=== PATIENT | male | born 1985 | race Caucasian/White ===

== ENCOUNTER 2019-01-12 17:47 | Emergency (ER) | payer SELFPAY ==
[~2019-01-12] VITALS: Ht 177.8 cm; Wt 67.8 kg
[2019-01-12 17:55] VITALS: BP 175/91
[2019-01-12] MEDS ORDERED: buprenorphine/naloxone 8mg/2mg SL tablet SL STA (18:01)
[2019-01-12] MEDS ORDERED: BUPR1FIL3 SL (18:05)
[2019-01-12] MEDS ORDERED: ONDA4TAB6 PO (18:05)
[2019-01-12] MEDS ORDERED: buprenorphine/naloxone 8MG-2MG SUBlingual film SL ONE (18:10)
== END 2019-01-12 18:35 | disposition home or self-care (01) ==
LOC: ER 17:47
DX: F32.9 Major depressive disorder, single episode, unspecified (principal); F11.23 Opioid dependence with withdrawal; Z79.899 Other long term (current) drug therapy
CPT/HCPCS: 99284

== ENCOUNTER 2020-08-11 09:37 | Inpatient (IN) | payer MEDICAID ==
[~2020-08-11] VITALS: Ht 180.3 cm; Wt 59.9 kg
[~2020-08-11 09:37] MED LIST: ONDA4TAB6 PO
[2020-08-11] MEDS ORDERED: buprenorphine/naloxone 8MG-2MG SUBlingual film SL STA (10:39)
[2020-08-11 11:34] LABS: BASOPHILS % (AUTO) 0.2 % (0-1); EOSINOPHILS # (AUTO) 0.2 X10'3 (0-0.9); EOSINOPHILS % (AUTO) 1.1 % (0-6); HEMATOCRIT 26.3 % (42.0-52.0); HEMOGLOBIN 8.6 g/dl (14.0-17.9); LYMPHOCYTES # (AUTO) 0.9 X10'3 (1.1-4.8); MEAN CORPUSCULAR HEMOGLOBIN 27.5 PG (27.0-31.0); MEAN CORPUSCULAR HGB CONC 32.7 g/dL (33.0-36.5); MEAN CORPUSCULAR VOLUME 84.1 FL (78-98); MEAN PLATELET VOLUME 7.4 FL (7.4-10.4); MONOCYTES # (AUTO) 0.5 X10'3 (0-0.9); MONOCYTES % (AUTO) 3.2 % (2-12); NEUTROPHILS # (AUTO) 13.3 X10'3 (1.8-7.7); NEUTROPHILS % (AUTO) 89.5 % (42-75); PLATELET COUNT 253 X10'3 (140-440); RED BLOOD COUNT 3.13 X10'6 (4.70-6.10); RED CELL DISTRIBUTION WIDTH 15.5 % (11.5-14.5); WHITE BLOOD COUNT 14.8 X10'3 (4.5-11.0)
[2020-08-11 11:45] LABS: ALANINE AMINOTRANSFERASE 22 U/L (12-78); ALBUMIN 1.3 G/DL (3.4-5.0); ALBUMIN/GLOBULIN RATIO 0.2 (1.1-1.5); ALKALINE PHOSPHATASE 140 IU/L (46-116); ANION GAP 10 (8-16); ASPARTATE AMINO TRANSFERASE 58 U/L (10-37); BILIRUBIN,TOTAL 0.6 MG/DL (0.1-1.0); BLOOD UREA NITROGEN 43 MG/DL (7-18); BUN/CREATININE RATIO 34.1 (5.4-32.0); CALCIUM 8.6 MG/DL (8.5-10.1); CHLORIDE 102 MMOL/L (99-107); CREATININE 1.26 MG/DL (0.60-1.10); POTASSIUM 4.1 MMOL/L (3.5-5.1); SODIUM 139 MMOL/L (135-145); TOTAL CARBON DIOXIDE 26.7 MMOL/L (24-32); TOTAL PROTEIN 7.5 G/DL (6.4-8.2); eGFR 66 ML/MIN
[2020-08-11 11:54] LABS: D-DIMER > 35.20 MG/L FEU (0-0.50); GLUCOSE 117 MG/DL (70-104)
[2020-08-11 12:04] LABS: C-REACTIVE PROTEIN 35.91 MG/DL (0.0-0.5)
[2020-08-11] MEDS ORDERED: dexamethasone 4mg/ml inj IV STA (12:44)
[2020-08-11] MEDS ORDERED: CefTRIAXone/D5W-Rocephin 1gm 50 ML IV ONE (12:45)
[2020-08-11] MEDS ORDERED: REMDESIVIR (EUA) 100mg inj. 200 MG in normal saline 100ml IV soln 100 ML IV ONE (12:45)
--- NOTE | 2020-08-11 12:52 | NUR ---
PER SAMIR DENNIS, I CALLED CT TO HAVE THEM HOLD OFF ON CT
[2020-08-11] MEDS ORDERED: LIDOcaine 1% W/epiNEPHrine 1:200,000 10ml vial IJ ONE (12:55)
[2020-08-11] MEDS ORDERED: iohexol 350MG/ML 100ml bottle IV ONE (13:43)
[2020-08-11] MEDS ORDERED: heparin 10,000 units/1 ML INJ IV ONE ×2 (16:55→18:45)
[2020-08-11] MEDS ORDERED: vancomycin/NS 1 GM ADD-VANTAGE 250 ML IV ONE (17:15)
[2020-08-11] MEDS ORDERED: piperacillin/tazo 3.375gm/50ml 50 ML IV ONE (17:15)
[2020-08-11] MEDS ORDERED: BUPR1FIL3 PO (17:52)
[2020-08-11] MEDS ORDERED: heparin 25,000 UNIT/250ml bag 250 ML IV SCH (18:45)
[2020-08-11] MEDS ORDERED: magnesium hydroxide 30ml (MOM) UD suspension PO PRN (18:45)
[2020-08-11] MEDS ORDERED: magnesium Cl slow-release 64mg tablet PO PRN (18:45)
[2020-08-11] MEDS ORDERED: potassium Cl 40MEQ/1/2NS 520ml 520 ML IV PRN ×2 (18:45)
[2020-08-11] MEDS ORDERED: acetaminophen 650mg rectal suppository RC PRN (18:45)
[2020-08-11] MEDS ORDERED: LORazepam 1 MG tablet PO PRN (18:45)
[2020-08-11] MEDS ORDERED: ondansetron/PF 4mg/2ml inj IV PRN (18:45)
[2020-08-11] MEDS ORDERED: mag hydrox/Alum hydrox/simeth 30ml oral suspension PO PRN (18:45)
[2020-08-11] MEDS ORDERED: metoclopramide 5 mg/ml inj IV PRN (18:45)
[2020-08-11] MEDS ORDERED: magnesium 2GM in 50ml NS 50 ML IV PRN (18:45)
[2020-08-11] MEDS ORDERED: potassium Cl 20 mEq SR tablet PO PRN ×2 (18:45)
[2020-08-11] MEDS ORDERED: magnesium 4gm in 100ml NS 100 ML IV PRN (18:45)
[2020-08-11] MEDS ORDERED: acetaminophen 325mg tablet PO PRN ×2 (18:45)
[2020-08-11] MEDS ORDERED: bisacodyl 10mg suppository rectal RC PRN (18:45)
[2020-08-11] MEDS ORDERED: heparin 10,000 units/1 ML INJ IV PRN (18:45)
[2020-08-11] MEDS ORDERED: ALBUTEROL INHALER 1 PUFF/90 MCG INHALER IH PRN (18:55)
[2020-08-11 19:48] LABS: BASOPHILS % (AUTO) 0.2 % (0-1); EOSINOPHILS % (AUTO) 0.1 % (0-6); HEMATOCRIT 24.8 % (42.0-52.0); HEMOGLOBIN 8.3 g/dl (14.0-17.9); LYMPHOCYTES % (AUTO) 7.5 % (21-51); MEAN CORPUSCULAR HEMOGLOBIN 27.2 PG (27.0-31.0); MEAN CORPUSCULAR HGB CONC 33.5 g/dL (33.0-36.5); MEAN CORPUSCULAR VOLUME 81.3 FL (78-98); MEAN PLATELET VOLUME 6.9 FL (7.4-10.4); MONOCYTES # (AUTO) 0.6 X10'3 (0-0.9); MONOCYTES % (AUTO) 4.4 % (2-12); NEUTROPHILS # (AUTO) 11.5 X10'3 (1.8-7.7); NEUTROPHILS % (AUTO) 87.8 % (42-75); PLATELET COUNT 211 X10'3 (140-440); RED BLOOD COUNT 3.06 X10'6 (4.70-6.10); RED CELL DISTRIBUTION WIDTH 15.8 % (11.5-14.5); WHITE BLOOD COUNT 13.1 X10'3 (4.5-11.0)
[2020-08-11] MEDS: buprenorphine/naloxone 8MG-2MG SUBlingual film SL SCH (19:49)
[2020-08-11] MEDS: K and/or MAG REPLACEMENT MC SCH (20:00)
[2020-08-11 20:04] LABS: PARTIAL THROMBOPLASTIN TIME 41 SECONDS (22-32)
[2020-08-11] MEDS ORDERED: temazepam 15mg capsule PO PRN (21:00)
[2020-08-11] MEDS ORDERED: normal saline 1000ml 1,000 ML IV ONE (21:55)
--- NOTE | 2020-08-11 22:00 | NUR ---
Received report from NATALIE San, Patient ALOx4, Thora vent in to Left upper chest, 500mmL bols running, heparin drip running at 7units. Patient is on 1L of oxygen, and is sating at 99%, tachypneic. Patient is resting comfortably in bed.
[2020-08-11 22:15] VITALS: BP 118/67
[2020-08-12] MEDS: piperacillin/tazo 3.375gm/50ml 50 ML IV SCH ×4 (00:43→22:17)
[2020-08-12] MEDS: heparin 25,000 UNIT/250ml bag 250 ML IV SCH ×4 (01:10→20:04)
[2020-08-12] MEDS ORDERED: heparin 10,000 units/1 ML INJ IV ONE (01:10)
[2020-08-12 02:48] LABS: BASOPHILS % (AUTO) 0.1 % (0-1); EOSINOPHILS # (AUTO) 0.1 X10'3 (0-0.9); EOSINOPHILS % (AUTO) 0.7 % (0-6); HEMATOCRIT 22.7 % (42.0-52.0); HEMOGLOBIN 7.5 g/dl (14.0-17.9); LYMPHOCYTES # (AUTO) 1.3 X10'3 (1.1-4.8); LYMPHOCYTES % (AUTO) 10.5 % (21-51); MEAN CORPUSCULAR HEMOGLOBIN 27.3 PG (27.0-31.0); MEAN CORPUSCULAR HGB CONC 33.1 g/dL (33.0-36.5); MEAN CORPUSCULAR VOLUME 82.4 FL (78-98); MEAN PLATELET VOLUME 7.1 FL (7.4-10.4); MONOCYTES # (AUTO) 0.8 X10'3 (0-0.9); NEUTROPHILS # (AUTO) 10.6 X10'3 (1.8-7.7); NEUTROPHILS % (AUTO) 82.7 % (42-75); PLATELET COUNT 179 X10'3 (140-440); RED BLOOD COUNT 2.75 X10'6 (4.70-6.10); RED CELL DISTRIBUTION WIDTH 15.6 % (11.5-14.5); WHITE BLOOD COUNT 12.9 X10'3 (4.5-11.0)
[2020-08-12 03:04] LABS: ALANINE AMINOTRANSFERASE 16 U/L (12-78); ALBUMIN 1.1 G/DL (3.4-5.0); ALBUMIN/GLOBULIN RATIO 0.2 (1.1-1.5); ALKALINE PHOSPHATASE 107 IU/L (46-116); ANION GAP 5 (8-16); ASPARTATE AMINO TRANSFERASE 33 U/L (10-37); BILIRUBIN,TOTAL 0.3 MG/DL (0.1-1.0); BLOOD UREA NITROGEN 33 MG/DL (7-18); BUN/CREATININE RATIO 41.8 (5.4-32.0); CALCIUM 8.5 MG/DL (8.5-10.1); CHLORIDE 104 MMOL/L (99-107); CHOL/HDL RATIO 5.4 (0.00-4.99); CHOLESTEROL 54 MG/DL (0-200); CREATININE 0.79 MG/DL (0.60-1.10); HDL CHOLESTEROL 10 MG/DL (35-60); LDL CHOLESTEROL 16 MG/DL (50-100); MAGNESIUM 2.3 MG/DL (1.5-2.4); POTASSIUM 4.4 MMOL/L (3.5-5.1); SODIUM 137 MMOL/L (135-145); TOTAL PROTEIN 6.8 G/DL (6.4-8.2); TRIGLYCERIDES 122 MG/DL (20-135); eGFR > 90 ML/MIN
[2020-08-12 03:08] LABS: D-DIMER 27.08 MG/L FEU (0-0.50); PARTIAL THROMBOPLASTIN TIME 30 SECONDS (22-32)
[2020-08-12 03:22] LABS: GLUCOSE 127 MG/DL (70-104)
[2020-08-12] MEDS: heparin 10,000 units/1 ML INJ IV PRN ×3 (03:50→20:02)
--- NOTE | 2020-08-12 06:20 | NUR ---
Problems reprioritized. Patient report given, questions answered & plan of care reviewed with NATALIE Beckham.
--- NOTE | 2020-08-12 06:49 | NUR ---
Patient in room ORTHO 4006. I have received report from Salvatore and had the opportunity to ask questions and assume patient care.
--- NOTE | 2020-08-12 06:57 | NUR ---
Patient in room ORTHO 4006. I have received report from NATALIE Cahse and had the opportunity to ask questions and assume patient care.
[2020-08-12] MEDS: DEXAMETHASONE 6 MG TABLET PO SCH (07:18)
[2020-08-12] MEDS: buprenorphine/naloxone 8MG-2MG SUBlingual film SL SCH ×2 (07:18→19:00)
[2020-08-12] MEDS: REMDESIVIR (EUA) 100mg inj. 100 MG in normal saline 100ml IV soln 100 ML IV SCH (07:18)
--- NOTE | 2020-08-12 07:30 | NUR ---
Patient is alert and oriented with no complaints at this time. Per report patient was on 2LNC however noticed patient had nasal cannula just hanging off right side of ear with nasal prongs hanging to the side as well. Patient vss and was 96% on RA. Patient reports no SOB and "feeling alot better than I did yesterday." Patient's left anterior chest thoravent dressing CDI with serious sanguinous, fluid chamber filled with serious sanguinous fluid. Spoke to Cyrus from IR who stated Dr. Contreras did not insert thoravent, Dr. Peters from [facility] did, therefore they are not managing it. Cyrus also stated that if hospitalist prefered to have patient have an atrium and connect to suction or airseal then IR would be able to do and follow. Notified this to Dr. Singleton who did want IR to manage. Orders placed. Patient still denies being SOB and is comfortable other than mild pain 3/10 to chest with deep breathing. Encouraged to deep breathe and cough exercises. Will continue to monitor.
[2020-08-12 07:42] VITALS: BP 111/65
[2020-08-12] MEDS ORDERED: buprenorphine/naloxone 8MG-2MG SUBlingual film SL SCH (08:00)
[2020-08-12] MEDS: K and/or MAG REPLACEMENT MC SCH ×2 (08:00→19:00)
[2020-08-12] MEDS ORDERED: vancomycin/NS 1 GM ADD-VANTAGE 250 ML IV SCH (08:00)
--- NOTE | 2020-08-12 08:25 | NUR ---
Dr Rhodes PAGER ID: [phone] MESSAGE: [phone]- Scotty Maldonado- yanira peterson full. IR did not insert so are not managing. Cyrus from IR called asked if you would like to connect to an atrium and place on suction or airseal or would you like it to just be aspirated? - Bhavani [phone]
--- NOTE | 2020-08-12 08:29 | NUR ---
PAGER ID: [phone] MESSAGE: [phone]- Scotty Maldonado- Positive Blood Cultures. Gram positive cocci in chains in anaebroic tueb drawn on 08/11 @ 1111 in extended IV. Gram positive cocci in chains in anaerobic and aerobic tube drawn on 08/11 at 1216 in extended IV- [place] [id number]
[2020-08-12] MEDS: VANCOmycin 1250MG/NS 250ml Bag 250 ML IV SCH ×2 (08:44→18:58)
[2020-08-12 10:00] VITALS: BP 117/71
--- NOTE | 2020-08-12 10:08 | NUR ---
Dr. Banegas to see patient. Patient having Echo done at bedside. Per Dr. Banegas cap off thoravent with redcap and will recheck chest xray at 1230.
--- NOTE | 2020-08-12 11:17 | NUR ---
Dr. Banegas in to see patient.
--- NOTE | 2020-08-12 11:21 | NUR ---
PAGER ID: [phone] MESSAGE: [phone]-White, Z- per US tech does have DVT. Already on heparin carlo- Bhavani [phone]
--- NOTE | 2020-08-12 12:38 | NUR ---
Dr. Rhodes aware of patient's current Lactic Acid of 3.3. No need to redraw Lactic Acid per Dr. Rhodes but received orders for a set of blood cultures.
--- NOTE | 2020-08-12 12:51 | NUR ---
Dr. Banegas in to see patient and dc'pema dugannt. Dressing CDI. Patient denies any complaints.
[2020-08-12 18:00] VITALS: BP 116/70
--- NOTE | 2020-08-12 18:05 | NUR ---
Problems reprioritized. Patient report given, questions answered & plan of care reviewed with NATALIE Singleton.
[2020-08-12] MEDS: lactobacillus rhamnosus 10,000 MMU CELLS/CAPSULE PO SCH (19:01)
[2020-08-12 22:00] VITALS: BP 117/70
[2020-08-13 02:52] LABS: D-DIMER 9.77 MG/L FEU (0-0.50); PARTIAL THROMBOPLASTIN TIME 59 SECONDS (22-32)
--- NOTE | 2020-08-13 06:45 | NUR ---
Patient in room ORTHO 4006. I have received report from NATALIE BUSTAMANTE and had the opportunity to ask questions and assume patient care.
[2020-08-13] MEDS: K and/or MAG REPLACEMENT MC SCH ×2 (08:00→20:00)
[2020-08-13] MEDS: piperacillin/tazo 3.375gm/50ml 50 ML IV SCH ×3 (08:00→23:53)
[2020-08-13 10:00] VITALS: BP 122/68
[2020-08-13] MEDS: REMDESIVIR (EUA) 100mg inj. 100 MG in normal saline 100ml IV soln 100 ML IV SCH (10:29)
[2020-08-13] MEDS: DEXAMETHASONE 6 MG TABLET PO SCH (10:35)
[2020-08-13] MEDS: lactobacillus rhamnosus 10,000 MMU CELLS/CAPSULE PO SCH ×2 (10:35→21:15)
[2020-08-13] MEDS: heparin 25,000 UNIT/250ml bag 250 ML IV SCH (10:37)
[2020-08-13] MEDS: buprenorphine/naloxone 8MG-2MG SUBlingual film SL SCH ×2 (11:29→21:15)
[2020-08-13] MEDS: enoxaparin 60mg/0.6ml syringe SUBCUT SCH ×2 (17:48→21:03)
[2020-08-13 18:00] VITALS: BP 116/73
--- NOTE | 2020-08-13 18:17 | NUR ---
Patient in room ORTHO 4006. I have received report from Fannie ESTRADA and had the opportunity to ask questions and assume patient care.
--- NOTE | 2020-08-13 18:45 | NUR ---
Problems reprioritized. Patient report given, questions answered & plan of care reviewed with NATALIE EISENBERG.
[2020-08-13] MEDS ORDERED: VANCOMYCIN LEVEL IV ONE (19:30)
[2020-08-13] MEDS: Melatonin 3mg tablet PO SCH (21:15)
[2020-08-13 22:00] VITALS: BP 120/70
[2020-08-14 02:00] VITALS: BP 136/69
[2020-08-14 06:00] VITALS: BP 117/63
--- NOTE | 2020-08-14 06:18 | NUR ---
Problems reprioritized. Patient report given, questions answered & plan of care reviewed with STEVE ESTRADA.
[2020-08-14 06:49] LABS: BASOPHILS % (AUTO) 0 % (0-1); EOSINOPHILS % (AUTO) 0 % (0-6); LYMPHOCYTES # (AUTO) 1.9 X10'3 (1.1-4.8); MEAN CORPUSCULAR HEMOGLOBIN 27.4 PG (27.0-31.0); MEAN CORPUSCULAR HGB CONC 33.2 g/dL (33.0-36.5); MEAN CORPUSCULAR VOLUME 82.5 FL (78-98); MEAN PLATELET VOLUME 7.3 FL (7.4-10.4); PLATELET COUNT 172 X10'3 (140-440); RED BLOOD COUNT 2.51 X10'6 (4.70-6.10); RED CELL DISTRIBUTION WIDTH 15.4 % (11.5-14.5); WHITE BLOOD COUNT 13.9 X10'3 (4.5-11.0)
[2020-08-14 06:59] LABS: HEMATOCRIT 20.7 % (42.0-52.0); HEMOGLOBIN 6.9 g/dl (14.0-17.9)
[2020-08-14 07:00] LABS: ALANINE AMINOTRANSFERASE 18 U/L (12-78); ALBUMIN 1.1 G/DL (3.4-5.0); ALBUMIN/GLOBULIN RATIO 0.2 (1.1-1.5); ALKALINE PHOSPHATASE 107 IU/L (46-116); ANION GAP 5 (8-16); ASPARTATE AMINO TRANSFERASE 26 U/L (10-37); BILIRUBIN,TOTAL 0.3 MG/DL (0.1-1.0); BLOOD UREA NITROGEN 23 MG/DL (7-18); BUN/CREATININE RATIO 31.9 (5.4-32.0); C-REACTIVE PROTEIN 11.95 MG/DL (0.0-0.5); CALCIUM 8.7 MG/DL (8.5-10.1); CHLORIDE 101 MMOL/L (99-107); CREATININE 0.72 MG/DL (0.60-1.10); POTASSIUM 4.6 MMOL/L (3.5-5.1); SODIUM 138 MMOL/L (135-145); TOTAL CARBON DIOXIDE 32.2 MMOL/L (24-32); TOTAL PROTEIN 7.2 G/DL (6.4-8.2); eGFR > 90 ML/MIN
[2020-08-14 07:01] LABS: GLUCOSE 118 MG/DL (70-104)
[2020-08-14 07:03] LABS: D-DIMER 11.12 MG/L FEU (0-0.50)
--- NOTE | 2020-08-14 07:10 | NUR ---
CRITICAL HGB 6.9 HCT 20.7, DR MACEDO AWAITING CALL BACK
[2020-08-14] MEDS: K and/or MAG REPLACEMENT MC SCH ×2 (08:00→20:00)
[2020-08-14] MEDS: lactobacillus rhamnosus 10,000 MMU CELLS/CAPSULE PO SCH ×2 (08:07→20:39)
[2020-08-14] MEDS: REMDESIVIR (EUA) 100mg inj. 100 MG in normal saline 100ml IV soln 100 ML IV SCH (08:07)
[2020-08-14] MEDS: enoxaparin 60mg/0.6ml syringe SUBCUT SCH ×2 (08:07→20:40)
[2020-08-14] MEDS: citalopram 20mg tablet PO SCH (08:07)
[2020-08-14] MEDS: buprenorphine/naloxone 8MG-2MG SUBlingual film SL SCH ×2 (08:08→20:39)
[2020-08-14] MEDS: DEXAMETHASONE 6 MG TABLET PO SCH (08:08)
[2020-08-14 08:11] LABS: HIV ANTIBODY 1&2 RAPID NON-REACTIVE (Neg)
[2020-08-14 08:38] VITALS: BP 123/68
[2020-08-14 10:00] VITALS: BP 119/70
[2020-08-14] MEDS: piperacillin/tazo 3.375gm/50ml 50 ML IV SCH ×3 (11:30→23:55)
[2020-08-14 16:00] VITALS: BP 132/70
--- NOTE | 2020-08-14 18:40 | NUR ---
Problems reprioritized. Patient report given, questions answered & plan of care reviewed with NATALIE WRIGHT.
[2020-08-14] MEDS: Melatonin 3mg tablet PO SCH (20:40)
[2020-08-14 22:00] VITALS: BP 119/73
[2020-08-15 02:00] VITALS: BP 117/73
[2020-08-15 05:23] VITALS: BP 123/73
[2020-08-15 06:15] LABS: D-DIMER 8.87 MG/L FEU (0-0.50)
[2020-08-15 06:19] LABS: BASOPHILS % (AUTO) 0.1 % (0-1); EOSINOPHILS # (AUTO) 0.1 X10'3 (0-0.9); EOSINOPHILS % (AUTO) 0.5 % (0-6); LYMPHOCYTES % (AUTO) 24.7 % (21-51); MEAN CORPUSCULAR HEMOGLOBIN 27.5 PG (27.0-31.0); MEAN CORPUSCULAR HGB CONC 33.4 g/dL (33.0-36.5); MEAN CORPUSCULAR VOLUME 82.4 FL (78-98); MEAN PLATELET VOLUME 7.1 FL (7.4-10.4); MONOCYTES # (AUTO) 1.1 X10'3 (0-0.9); MONOCYTES % (AUTO) 9.4 % (2-12); NEUTROPHILS # (AUTO) 7.9 X10'3 (1.8-7.7); NEUTROPHILS % (AUTO) 65.3 % (42-75); PLATELET COUNT 222 X10'3 (140-440); RED BLOOD COUNT 2.54 X10'6 (4.70-6.10); RED CELL DISTRIBUTION WIDTH 15.7 % (11.5-14.5); WHITE BLOOD COUNT 12.1 X10'3 (4.5-11.0)
[2020-08-15 06:26] LABS: ALANINE AMINOTRANSFERASE 20 U/L (12-78); ALBUMIN 1.1 G/DL (3.4-5.0); ALBUMIN/GLOBULIN RATIO 0.2 (1.1-1.5); ALKALINE PHOSPHATASE 86 IU/L (46-116); ANION GAP 2 (8-16); ASPARTATE AMINO TRANSFERASE 22 U/L (10-37); BILIRUBIN,TOTAL 0.2 MG/DL (0.1-1.0); BLOOD UREA NITROGEN 22 MG/DL (7-18); BUN/CREATININE RATIO 27.8 (5.4-32.0); C-REACTIVE PROTEIN 6.77 MG/DL (0.0-0.5); CALCIUM 8.4 MG/DL (8.5-10.1); CHLORIDE 101 MMOL/L (99-107); CREATININE 0.79 MG/DL (0.60-1.10); FERRITIN 443 NG/ML (26-388); MAGNESIUM 1.9 MG/DL (1.5-2.4); POTASSIUM 4.5 MMOL/L (3.5-5.1); SODIUM 136 MMOL/L (135-145); TOTAL CARBON DIOXIDE 32.7 MMOL/L (24-32); TOTAL PROTEIN 7.1 G/DL (6.4-8.2); eGFR > 90 ML/MIN
[2020-08-15 06:27] LABS: GLUCOSE 91 MG/DL (70-104)
--- NOTE | 2020-08-15 06:30 | NUR ---
Patient in room ORTHO 4006. I have received report from NATALIE WRIGHT and had the opportunity to ask questions and assume patient care.
[2020-08-15 06:33] LABS: HEMATOCRIT 20.9 % (42.0-52.0)
--- NOTE | 2020-08-15 06:52 | NUR ---
CALLED DR COOK RE: CRITICAL HGB 7.01 HCT 20.9... ADVISED TO MEGHA CODY MD AFTER 0700.
[2020-08-15] MEDS: K and/or MAG REPLACEMENT MC SCH ×2 (07:28→20:00)
--- NOTE | 2020-08-15 07:32 | NUR ---
Page Sent PAGER ID: [phone] MESSAGE: TRISTON 5199-RE: ALBER CHEATHAM [phone]...CRITICAL LAB...HGB 7.0 HCT 20.9
[2020-08-15] MEDS: buprenorphine/naloxone 8MG-2MG SUBlingual film SL SCH ×2 (07:52→20:12)
[2020-08-15] MEDS: citalopram 20mg tablet PO SCH (07:52)
[2020-08-15] MEDS: DEXAMETHASONE 6 MG TABLET PO SCH (07:52)
[2020-08-15] MEDS: REMDESIVIR (EUA) 100mg inj. 100 MG in normal saline 100ml IV soln 100 ML IV SCH (07:52)
[2020-08-15] MEDS: piperacillin/tazo 3.375gm/50ml 50 ML IV SCH ×2 (07:52→17:20)
[2020-08-15] MEDS: lactobacillus rhamnosus 10,000 MMU CELLS/CAPSULE PO SCH ×2 (07:52→20:12)
[2020-08-15] MEDS: enoxaparin 60mg/0.6ml syringe SUBCUT SCH ×2 (07:52→20:12)
[2020-08-15 09:19] LABS: PLATELET ESTIMATE NORMAL
[2020-08-15 09:20] LABS: ANISOCYTOSIS 1+; POLYCHROMASIA 2+
[2020-08-15 11:00] VITALS: BP 129/70
[2020-08-15 11:33] LABS: % IRON SATURATION 18 % (11-46); IRON 37 UG/DL (53-167); TOTAL IRON BINDING CAPACITY 208 UG/DL (259-388)
--- NOTE | 2020-08-15 12:29 | NUR ---
Initial: Pt admit DX pulmonary emboli, sepsis, COVID-19, L lung abscess, and L pneumothorax s/p CT placement per MD note. Noted BMI 18.4 though no significant edema/wounds or weakness and PO 75-100% avg regular diet meeting kcal needs for IBW. Double proteins BIDLD added for satiety and needs given DX. Does not meet malnutrition criteria at this time. LBM 08/13. CRP down to 6.77 from 36.4 prior per EMR. No nutrition concerns at this time. Will continue to monitor. Rec: 1. continue regular diet; double proteins BIDLD for satiety 2. routine bowel care 3. weekly wts Addendum: 08/15/20 at [address] Amended: Links added.
[2020-08-15 15:00] VITALS: BP 116/69
[2020-08-15 15:56] LABS: OCCULT BLOOD STOOL NEGATIVE (Neg)
[2020-08-15 17:34] VITALS: BP 111/75
--- NOTE | 2020-08-15 18:25 | NUR ---
Problems reprioritized. Patient report given, questions answered & plan of care reviewed with NATALIE WRIGHT.
[2020-08-15] MEDS: Melatonin 3mg tablet PO SCH (20:12)
[2020-08-15 22:00] VITALS: BP 122/67
[2020-08-15] MEDS: sodium ferric gluc complex inj 125 MG in normal saline 100ml IV soln 90 ML IV SCH (22:02)
[2020-08-16] MEDS: piperacillin/tazo 3.375gm/50ml 50 ML IV SCH ×4 (00:34→23:46)
[2020-08-16 02:00] VITALS: BP 124/65
[2020-08-16 05:51] VITALS: BP 130/63
[2020-08-16 06:13] LABS: BASOPHILS % (AUTO) 0 % (0-1); EOSINOPHILS # (AUTO) 0.1 X10'3 (0-0.9); EOSINOPHILS % (AUTO) 1.2 % (0-6); HEMATOCRIT 23.1 % (42.0-52.0); HEMOGLOBIN 7.5 g/dl (14.0-17.9); LYMPHOCYTES # (AUTO) 2.9 X10'3 (1.1-4.8); LYMPHOCYTES % (AUTO) 24.2 % (21-51); MEAN CORPUSCULAR HEMOGLOBIN 27.3 PG (27.0-31.0); MEAN CORPUSCULAR HGB CONC 32.6 g/dL (33.0-36.5); MEAN CORPUSCULAR VOLUME 83.7 FL (78-98); MONOCYTES # (AUTO) 1.2 X10'3 (0-0.9); NEUTROPHILS # (AUTO) 7.8 X10'3 (1.8-7.7); NEUTROPHILS % (AUTO) 64.6 % (42-75); PLATELET COUNT 285 X10'3 (140-440); RED BLOOD COUNT 2.76 X10'6 (4.70-6.10); RED CELL DISTRIBUTION WIDTH 15.9 % (11.5-14.5); WHITE BLOOD COUNT 12.1 X10'3 (4.5-11.0)
--- NOTE | 2020-08-16 06:26 | NUR ---
Patient in room ORTHO 4006. I have received report from NATALIE Dumont and had the opportunity to ask questions and assume patient care.
[2020-08-16 06:32] LABS: ALANINE AMINOTRANSFERASE 25 U/L (12-78); ALBUMIN 1.2 G/DL (3.4-5.0); ALBUMIN/GLOBULIN RATIO 0.2 (1.1-1.5); ALKALINE PHOSPHATASE 87 IU/L (46-116); ANION GAP 3 (8-16); ASPARTATE AMINO TRANSFERASE 22 U/L (10-37); BILIRUBIN,TOTAL 0.2 MG/DL (0.1-1.0); BLOOD UREA NITROGEN 22 MG/DL (7-18); BUN/CREATININE RATIO 25.3 (5.4-32.0); C-REACTIVE PROTEIN 4.64 MG/DL (0.0-0.5); CALCIUM 8.6 MG/DL (8.5-10.1); CHLORIDE 102 MMOL/L (99-107); CREATININE 0.87 MG/DL (0.60-1.10); POTASSIUM 4.5 MMOL/L (3.5-5.1); SODIUM 138 MMOL/L (135-145); TOTAL PROTEIN 7.7 G/DL (6.4-8.2); eGFR > 90 ML/MIN
[2020-08-16 06:33] LABS: D-DIMER 10.05 MG/L FEU (0-0.50); GLUCOSE 85 MG/DL (70-104)
[2020-08-16] MEDS: K and/or MAG REPLACEMENT MC SCH ×2 (07:01→20:00)
[2020-08-16] MEDS: citalopram 20mg tablet PO SCH (07:49)
[2020-08-16] MEDS: lactobacillus rhamnosus 10,000 MMU CELLS/CAPSULE PO SCH ×2 (07:50→20:15)
[2020-08-16] MEDS: buprenorphine/naloxone 8MG-2MG SUBlingual film SL SCH ×2 (07:50→20:16)
[2020-08-16] MEDS: DEXAMETHASONE 6 MG TABLET PO SCH (07:50)
[2020-08-16] MEDS: enoxaparin 60mg/0.6ml syringe SUBCUT SCH ×2 (07:50→20:20)
[2020-08-16 08:15] VITALS: BP 121/65
[2020-08-16 18:01] VITALS: BP 120/56
--- NOTE | 2020-08-16 18:15 | NUR ---
Problems reprioritized. Patient report given, questions answered & plan of care reviewed with NATALIE MOREIRA.
--- NOTE | 2020-08-16 18:40 | NUR ---
RECEIVED REPORT FROM TRISTON ESTRADA AND ASSUMED PATIENT CARE
[2020-08-16] MEDS: Melatonin 3mg tablet PO SCH (20:16)
[2020-08-16] MEDS: sodium ferric gluc complex inj 125 MG in normal saline 100ml IV soln 90 ML IV SCH (20:21)
[2020-08-16 22:00] VITALS: BP 113/59
[2020-08-17] VITALS (7 sets, daily range): BP systolic 110–129; BP diastolic 58–80
[2020-08-17 04:44] LABS: BASOPHILS # (AUTO) 0.1 X10'3 (0-0.2); BASOPHILS % (AUTO) 0.9 % (0-1); EOSINOPHILS # (AUTO) 0.2 X10'3 (0-0.9); EOSINOPHILS % (AUTO) 1.4 % (0-6); HEMATOCRIT 24.5 % (42.0-52.0); LYMPHOCYTES # (AUTO) 3.4 X10'3 (1.1-4.8); LYMPHOCYTES % (AUTO) 24.7 % (21-51); MEAN CORPUSCULAR HEMOGLOBIN 27.5 PG (27.0-31.0); MEAN CORPUSCULAR HGB CONC 32.5 g/dL (33.0-36.5); MEAN CORPUSCULAR VOLUME 84.4 FL (78-98); MEAN PLATELET VOLUME 6.7 FL (7.4-10.4); MONOCYTES # (AUTO) 1.1 X10'3 (0-0.9); MONOCYTES % (AUTO) 7.9 % (2-12); NEUTROPHILS # (AUTO) 8.8 X10'3 (1.8-7.7); NEUTROPHILS % (AUTO) 65.1 % (42-75); PLATELET COUNT 353 X10'3 (140-440); RED CELL DISTRIBUTION WIDTH 16.2 % (11.5-14.5); WHITE BLOOD COUNT 13.6 X10'3 (4.5-11.0)
[2020-08-17 04:59] LABS: ALANINE AMINOTRANSFERASE 26 U/L (12-78); ALBUMIN 1.3 G/DL (3.4-5.0); ALBUMIN/GLOBULIN RATIO 0.2 (1.1-1.5); ALKALINE PHOSPHATASE 91 IU/L (46-116); ANION GAP 2 (8-16); ASPARTATE AMINO TRANSFERASE 18 U/L (10-37); BILIRUBIN,TOTAL 0.3 MG/DL (0.1-1.0); BLOOD UREA NITROGEN 21 MG/DL (7-18); BUN/CREATININE RATIO 25.9 (5.4-32.0); CALCIUM 8.6 MG/DL (8.5-10.1); CHLORIDE 101 MMOL/L (99-107); CREATININE 0.81 MG/DL (0.60-1.10); MAGNESIUM 2.2 MG/DL (1.5-2.4); PHOSPHORUS 3.5 MG/DL (2.3-4.5); POTASSIUM 4.8 MMOL/L (3.5-5.1); SODIUM 136 MMOL/L (135-145); TOTAL CARBON DIOXIDE 33.1 MMOL/L (24-32); TOTAL PROTEIN 7.9 G/DL (6.4-8.2); eGFR > 90 ML/MIN
[2020-08-17 05:17] LABS: GLUCOSE 89 MG/DL (70-104)
--- NOTE | 2020-08-17 06:57 | NUR ---
Patient in room ORTHO 4008. I have received report from NATALIE Gleason and had the opportunity to ask questions and assume patient care.
[2020-08-17 07:12] LABS: TOTAL CELLS COUNTED 100
[2020-08-17 07:13] LABS: PLATELET ESTIMATE NORMAL
[2020-08-17] MEDS: lactobacillus rhamnosus 10,000 MMU CELLS/CAPSULE PO SCH ×2 (07:38→20:31)
[2020-08-17] MEDS: citalopram 20mg tablet PO SCH (07:38)
[2020-08-17] MEDS: buprenorphine/naloxone 8MG-2MG SUBlingual film SL SCH ×2 (07:39→20:31)
[2020-08-17] MEDS: DEXAMETHASONE 6 MG TABLET PO SCH (07:39)
--- NOTE | 2020-08-17 07:49 | NUR ---
pt out to IR for chest tube placement.
[2020-08-17] MEDS: K and/or MAG REPLACEMENT MC SCH ×2 (08:00→20:00)
[2020-08-17] MEDS: piperacillin/tazo 3.375gm/50ml 50 ML IV SCH ×2 (08:50→16:50)
--- NOTE | 2020-08-17 08:58 | NUR ---
pt back to room. chest tube placed to left upper chest. Pt has no c/o pain or discomfort. O2sat 95% on R/A. fine expiratory wheezes and crepitus to left lung.
[2020-08-17] MEDS ORDERED: iohexol 350MG/ML 100ml bottle IV ONE (09:19)
[2020-08-17] MEDS: enoxaparin 60mg/0.6ml syringe SUBCUT SCH ×2 (11:43→20:31)
--- NOTE | 2020-08-17 18:38 | NUR ---
Problems reprioritized. Patient report given, questions answered & plan of care reviewed with NATALIE Soliman.
[2020-08-17] MEDS: sodium ferric gluc complex inj 125 MG in normal saline 100ml IV soln 90 ML IV SCH (20:18)
[2020-08-17] MEDS: Melatonin 3mg tablet PO SCH (20:31)
[2020-08-18] MEDS: piperacillin/tazo 3.375gm/50ml 50 ML IV SCH ×3 (00:31→15:18)
--- NOTE | 2020-08-18 06:00 | NUR ---
Patient in room ORTHO 4008. I have received report from Janny ESTRADA and had the opportunity to ask questions and assume patient care.
[2020-08-18] MEDS: DEXAMETHASONE 6 MG TABLET PO SCH (07:28)
[2020-08-18] MEDS: lactobacillus rhamnosus 10,000 MMU CELLS/CAPSULE PO SCH ×2 (07:29→20:21)
[2020-08-18] MEDS: citalopram 20mg tablet PO SCH (07:29)
[2020-08-18] MEDS: buprenorphine/naloxone 8MG-2MG SUBlingual film SL SCH ×2 (07:30→20:23)
[2020-08-18] MEDS: enoxaparin 60mg/0.6ml syringe SUBCUT SCH ×2 (07:31→20:23)
[2020-08-18 07:35] VITALS: BP 116/56
[2020-08-18] MEDS: K and/or MAG REPLACEMENT MC SCH ×2 (07:43→20:00)
[2020-08-18 09:30] LABS: BASOPHILS % (AUTO) 0.1 % (0-1); EOSINOPHILS # (AUTO) 0.2 X10'3 (0-0.9); EOSINOPHILS % (AUTO) 1.5 % (0-6); HEMATOCRIT 24.7 % (42.0-52.0); HEMOGLOBIN 7.9 g/dl (14.0-17.9); LYMPHOCYTES # (AUTO) 2.1 X10'3 (1.1-4.8); LYMPHOCYTES % (AUTO) 14.2 % (21-51); MEAN CORPUSCULAR HEMOGLOBIN 27.5 PG (27.0-31.0); MEAN CORPUSCULAR HGB CONC 32.1 g/dL (33.0-36.5); MEAN CORPUSCULAR VOLUME 85.4 FL (78-98); MEAN PLATELET VOLUME 6.4 FL (7.4-10.4); MONOCYTES # (AUTO) 0.8 X10'3 (0-0.9); MONOCYTES % (AUTO) 5.5 % (2-12); NEUTROPHILS # (AUTO) 11.4 X10'3 (1.8-7.7); NEUTROPHILS % (AUTO) 78.7 % (42-75); PLATELET COUNT 416 X10'3 (140-440); RED BLOOD COUNT 2.89 X10'6 (4.70-6.10); RED CELL DISTRIBUTION WIDTH 16.9 % (11.5-14.5); WHITE BLOOD COUNT 14.5 X10'3 (4.5-11.0)
[2020-08-18 09:35] LABS: ALANINE AMINOTRANSFERASE 22 U/L (12-78); ALBUMIN 1.3 G/DL (3.4-5.0); ALBUMIN/GLOBULIN RATIO 0.2 (1.1-1.5); ALKALINE PHOSPHATASE 87 IU/L (46-116); ANION GAP 4 (8-16); ASPARTATE AMINO TRANSFERASE 17 U/L (10-37); BILIRUBIN,TOTAL 0.3 MG/DL (0.1-1.0); BLOOD UREA NITROGEN 22 MG/DL (7-18); BUN/CREATININE RATIO 23.4 (5.4-32.0); C-REACTIVE PROTEIN 5.59 MG/DL (0.0-0.5); CALCIUM 8.5 MG/DL (8.5-10.1); CHLORIDE 97 MMOL/L (99-107); CREATININE 0.94 MG/DL (0.60-1.10); PHOSPHORUS 3.4 MG/DL (2.3-4.5); POTASSIUM 4.5 MMOL/L (3.5-5.1); SODIUM 132 MMOL/L (135-145); TOTAL CARBON DIOXIDE 31.2 MMOL/L (24-32); TOTAL PROTEIN 7.7 G/DL (6.4-8.2); eGFR > 90 ML/MIN
[2020-08-18 09:46] LABS: GLUCOSE 180 MG/DL (70-104)
[2020-08-18 10:08] VITALS: BP 118/57
--- NOTE | 2020-08-18 12:10 | NUR ---
Problems reprioritized. Patient report given, questions answered & plan of care reviewed with Myrna ESTRADA.
--- NOTE | 2020-08-18 18:16 | NUR ---
Problems reprioritized. Patient report given, questions answered & plan of care reviewed with NATALIE Luu.
--- NOTE | 2020-08-18 18:30 | NUR ---
Patient in room ORTHO 4008. I have received report from TRISTIN ESTRADA and had the opportunity to ask questions and assume patient care.
[2020-08-18 19:00] VITALS: BP 140/58
[2020-08-18] MEDS: sodium ferric gluc complex inj 125 MG in normal saline 100ml IV soln 90 ML IV SCH (20:13)
[2020-08-18] MEDS: Melatonin 3mg tablet PO SCH (20:22)
[2020-08-18 23:00] VITALS: BP 112/56
[2020-08-19] MEDS: piperacillin/tazo 3.375gm/50ml 50 ML IV SCH ×3 (00:08→16:47)
[2020-08-19 06:00] VITALS: BP 111/64
[2020-08-19 06:20] LABS: BASOPHILS % (AUTO) 0.2 % (0-1); EOSINOPHILS # (AUTO) 0.2 X10'3 (0-0.9); EOSINOPHILS % (AUTO) 1.5 % (0-6); HEMOGLOBIN 7.7 g/dl (14.0-17.9); LYMPHOCYTES # (AUTO) 3.1 X10'3 (1.1-4.8); LYMPHOCYTES % (AUTO) 27.3 % (21-51); MEAN CORPUSCULAR HEMOGLOBIN 28.3 PG (27.0-31.0); MEAN CORPUSCULAR HGB CONC 33.5 g/dL (33.0-36.5); MEAN CORPUSCULAR VOLUME 84.5 FL (78-98); MEAN PLATELET VOLUME 6.3 FL (7.4-10.4); MONOCYTES % (AUTO) 9.1 % (2-12); NEUTROPHILS # (AUTO) 7.1 X10'3 (1.8-7.7); NEUTROPHILS % (AUTO) 61.9 % (42-75); PLATELET COUNT 454 X10'3 (140-440); RED BLOOD COUNT 2.72 X10'6 (4.70-6.10); RED CELL DISTRIBUTION WIDTH 17.6 % (11.5-14.5); WHITE BLOOD COUNT 11.4 X10'3 (4.5-11.0)
--- NOTE | 2020-08-19 06:26 | NUR ---
Patient in room ORTHO 4008. I have received report from NATALIE Luu and had the opportunity to ask questions and assume patient care.
--- NOTE | 2020-08-19 06:27 | NUR ---
Problems reprioritized. Patient report given, questions answered & plan of care reviewed with DESTINY ESTRADA.
[2020-08-19 06:37] LABS: ALANINE AMINOTRANSFERASE 29 U/L (12-78); ALBUMIN 1.3 G/DL (3.4-5.0); ALBUMIN/GLOBULIN RATIO 0.2 (1.1-1.5); ALKALINE PHOSPHATASE 82 IU/L (46-116); ANION GAP 0 (8-16); ASPARTATE AMINO TRANSFERASE 20 U/L (10-37); BILIRUBIN,TOTAL 0.2 MG/DL (0.1-1.0); BLOOD UREA NITROGEN 19 MG/DL (7-18); BUN/CREATININE RATIO 22.9 (5.4-32.0); C-REACTIVE PROTEIN 4.49 MG/DL (0.0-0.5); CALCIUM 8.9 MG/DL (8.5-10.1); CHLORIDE 101 MMOL/L (99-107); CREATININE 0.83 MG/DL (0.60-1.10); PHOSPHORUS 3.4 MG/DL (2.3-4.5); POTASSIUM 4.4 MMOL/L (3.5-5.1); SODIUM 136 MMOL/L (135-145); TOTAL CARBON DIOXIDE 34.9 MMOL/L (24-32); TOTAL PROTEIN 7.7 G/DL (6.4-8.2); eGFR > 90 ML/MIN
[2020-08-19 06:39] LABS: D-DIMER 7.42 MG/L FEU (0-0.50)
[2020-08-19 06:44] LABS: GLUCOSE 82 MG/DL (70-104)
[2020-08-19] MEDS: buprenorphine/naloxone 8MG-2MG SUBlingual film SL SCH ×2 (07:52→20:26)
[2020-08-19] MEDS: lactobacillus rhamnosus 10,000 MMU CELLS/CAPSULE PO SCH ×2 (07:53→20:26)
[2020-08-19] MEDS: DEXAMETHASONE 6 MG TABLET PO SCH (07:53)
[2020-08-19] MEDS: citalopram 20mg tablet PO SCH (07:53)
[2020-08-19] MEDS: enoxaparin 60mg/0.6ml syringe SUBCUT SCH ×2 (07:55→20:26)
[2020-08-19] MEDS: K and/or MAG REPLACEMENT MC SCH ×2 (08:00→20:00)
[2020-08-19 10:00] VITALS: BP 113/58
[2020-08-19] MEDS: lactose-reduced food (Ensure Enlive) - 237ml bottle PO SCH ×2 (13:00→18:24)
--- NOTE | 2020-08-19 17:26 | NUR ---
Pt ambulated 50ft with FWW. c/o left leg pain and weakness. Encouraged pt to walk more frequent. Pt would benefit from PT intervention. will pass on to incoming nurse to notify MD to get PT eval in the AM.
[2020-08-19 18:00] VITALS: BP 114/66
--- NOTE | 2020-08-19 18:25 | NUR ---
Problems reprioritized. Patient report given, questions answered & plan of care reviewed with Dl Larry.
[2020-08-19] MEDS: sodium ferric gluc complex inj 125 MG in normal saline 100ml IV soln 100 ML IV SCH (18:42)
[2020-08-19] MEDS: Melatonin 3mg tablet PO SCH (20:26)
[2020-08-19 22:00] VITALS: BP 120/57
[2020-08-20] MEDS: piperacillin/tazo 3.375gm/50ml 50 ML IV SCH ×3 (00:09→15:05)
--- NOTE | 2020-08-20 06:30 | NUR ---
Patient in room ORTHO 4008. I have received report from Viktoria ESTRADA and had the opportunity to ask questions and assume patient care.
--- NOTE | 2020-08-20 06:35 | NUR ---
Problems reprioritized. Patient report given, questions answered & plan of care reviewed with NATALIE Camarillo.
[2020-08-20 07:03] LABS: BASOPHILS % (AUTO) 0.3 % (0-1); EOSINOPHILS # (AUTO) 0.2 X10'3 (0-0.9); EOSINOPHILS % (AUTO) 1.5 % (0-6); HEMATOCRIT 22.5 % (42.0-52.0); HEMOGLOBIN 7.5 g/dl (14.0-17.9); LYMPHOCYTES # (AUTO) 3.1 X10'3 (1.1-4.8); LYMPHOCYTES % (AUTO) 26.4 % (21-51); MEAN CORPUSCULAR HEMOGLOBIN 28.3 PG (27.0-31.0); MEAN CORPUSCULAR HGB CONC 33.3 g/dL (33.0-36.5); MEAN PLATELET VOLUME 6.4 FL (7.4-10.4); MONOCYTES % (AUTO) 8.9 % (2-12); NEUTROPHILS # (AUTO) 7.3 X10'3 (1.8-7.7); NEUTROPHILS % (AUTO) 62.9 % (42-75); PLATELET COUNT 488 X10'3 (140-440); RED BLOOD COUNT 2.64 X10'6 (4.70-6.10); RED CELL DISTRIBUTION WIDTH 18.1 % (11.5-14.5); WHITE BLOOD COUNT 11.5 X10'3 (4.5-11.0)
[2020-08-20 07:48] LABS: ALANINE AMINOTRANSFERASE 37 U/L (12-78); ALBUMIN 1.4 G/DL (3.4-5.0); ALBUMIN/GLOBULIN RATIO 0.2 (1.1-1.5); ALKALINE PHOSPHATASE 84 IU/L (46-116); ANION GAP 4 (8-16); ASPARTATE AMINO TRANSFERASE 24 U/L (10-37); BILIRUBIN,TOTAL 0.2 MG/DL (0.1-1.0); BLOOD UREA NITROGEN 22 MG/DL (7-18); BUN/CREATININE RATIO 30.6 (5.4-32.0); C-REACTIVE PROTEIN 3.36 MG/DL (0.0-0.5); CALCIUM 8.8 MG/DL (8.5-10.1); CHLORIDE 101 MMOL/L (99-107); CREATININE 0.72 MG/DL (0.60-1.10); GLUCOSE 80 MG/DL (70-104); POTASSIUM 4.3 MMOL/L (3.5-5.1); SODIUM 138 MMOL/L (135-145); TOTAL CARBON DIOXIDE 32.8 MMOL/L (24-32); TOTAL PROTEIN 7.7 G/DL (6.4-8.2); eGFR > 90 ML/MIN
[2020-08-20] MEDS: enoxaparin 60mg/0.6ml syringe SUBCUT SCH ×2 (07:52→20:47)
[2020-08-20] MEDS: citalopram 20mg tablet PO SCH (07:53)
[2020-08-20] MEDS: lactobacillus rhamnosus 10,000 MMU CELLS/CAPSULE PO SCH ×2 (07:53→20:47)
[2020-08-20] MEDS: buprenorphine/naloxone 8MG-2MG SUBlingual film SL SCH ×2 (07:53→20:48)
[2020-08-20] MEDS: DEXAMETHASONE 6 MG TABLET PO SCH (07:53)
[2020-08-20] MEDS: lactose-reduced food (Ensure Enlive) - 237ml bottle PO SCH ×3 (07:53→18:00)
[2020-08-20] MEDS: K and/or MAG REPLACEMENT MC SCH ×2 (08:48→18:23)
[2020-08-20 10:00] VITALS: BP 115/66
[2020-08-20 18:31] VITALS: BP 121/53
[2020-08-20] MEDS: sodium ferric gluc complex inj 125 MG in normal saline 100ml IV soln 100 ML IV SCH (19:20)
[2020-08-20] MEDS: Melatonin 3mg tablet PO SCH (20:47)
[2020-08-20 22:00] VITALS: BP 116/60
[2020-08-21] MEDS: piperacillin/tazo 3.375gm/50ml 50 ML IV SCH ×3 (00:40→16:23)
--- NOTE | 2020-08-21 06:57 | NUR ---
Patient in room ORTHO 4008. I have received report from dai salgado and had the opportunity to ask questions and assume patient care.
[2020-08-21 06:59] VITALS: BP 108/62
[2020-08-21 07:22] LABS: BASOPHILS # (AUTO) 0.1 X10'3 (0-0.2); BASOPHILS % (AUTO) 0.5 % (0-1); EOSINOPHILS # (AUTO) 0.2 X10'3 (0-0.9); EOSINOPHILS % (AUTO) 1.8 % (0-6); HEMATOCRIT 23.5 % (42.0-52.0); HEMOGLOBIN 7.6 g/dl (14.0-17.9); LYMPHOCYTES # (AUTO) 3.1 X10'3 (1.1-4.8); LYMPHOCYTES % (AUTO) 27.8 % (21-51); MEAN CORPUSCULAR HGB CONC 32.5 g/dL (33.0-36.5); MEAN CORPUSCULAR VOLUME 86.3 FL (78-98); MEAN PLATELET VOLUME 6.1 FL (7.4-10.4); MONOCYTES # (AUTO) 1.1 X10'3 (0-0.9); NEUTROPHILS # (AUTO) 6.7 X10'3 (1.8-7.7); NEUTROPHILS % (AUTO) 59.9 % (42-75); PLATELET COUNT 468 X10'3 (140-440); RED BLOOD COUNT 2.72 X10'6 (4.70-6.10); RED CELL DISTRIBUTION WIDTH 19.1 % (11.5-14.5); WHITE BLOOD COUNT 11.2 X10'3 (4.5-11.0)
[2020-08-21 07:36] LABS: ALANINE AMINOTRANSFERASE 47 U/L (12-78); ALBUMIN 1.4 G/DL (3.4-5.0); ALBUMIN/GLOBULIN RATIO 0.2 (1.1-1.5); ALKALINE PHOSPHATASE 81 IU/L (46-116); ANION GAP 3 (8-16); ASPARTATE AMINO TRANSFERASE 30 U/L (10-37); BILIRUBIN,TOTAL 0.1 MG/DL (0.1-1.0); BLOOD UREA NITROGEN 23 MG/DL (7-18); BUN/CREATININE RATIO 32.4 (5.4-32.0); C-REACTIVE PROTEIN 2.53 MG/DL (0.0-0.5); CALCIUM 8.9 MG/DL (8.5-10.1); CHLORIDE 103 MMOL/L (99-107); CREATININE 0.71 MG/DL (0.60-1.10); GLUCOSE 82 MG/DL (70-104); PHOSPHORUS 2.9 MG/DL (2.3-4.5); POTASSIUM 4.6 MMOL/L (3.5-5.1); SODIUM 138 MMOL/L (135-145); TOTAL CARBON DIOXIDE 32.3 MMOL/L (24-32); TOTAL PROTEIN 7.5 G/DL (6.4-8.2); eGFR > 90 ML/MIN
[2020-08-21] MEDS: K and/or MAG REPLACEMENT MC SCH ×2 (07:50→20:00)
[2020-08-21] MEDS: enoxaparin 60mg/0.6ml syringe SUBCUT SCH ×2 (07:57→20:06)
[2020-08-21] MEDS: citalopram 20mg tablet PO SCH (07:57)
[2020-08-21] MEDS: DEXAMETHASONE 6 MG TABLET PO SCH (07:57)
[2020-08-21] MEDS: lactobacillus rhamnosus 10,000 MMU CELLS/CAPSULE PO SCH ×2 (07:57→20:06)
[2020-08-21] MEDS: buprenorphine/naloxone 8MG-2MG SUBlingual film SL SCH ×2 (07:57→20:05)
[2020-08-21] MEDS: lactose-reduced food (Ensure Enlive) - 237ml bottle PO SCH ×3 (08:04→18:22)
[2020-08-21 08:24] LABS: ANISOCYTOSIS 2+; HYPOCHROMASIA 2+; PLATELET ESTIMATE INCREASED; POLYCHROMASIA FEW
--- NOTE | 2020-08-21 11:05 | NUR ---
Reassessment: Pt PO mostly 100% avg regular diet w/ double proteins BIDLD and 100% ensure enlives added 08/19 in EMR meeting needs. L chest tube for pneumothorax -13ml output per EMR. LBM 08/19. No nutrition concerns at this time. Will continue to monitor. Rec: 1. continue regular diet; double proteins BIDLD for satiety 2. ensure enlive TIDWM per MD 3. routine bowel care 4. weekly wts Addendum: 08/21/20 at [address] Amended: Links added.
[2020-08-21 11:29] VITALS: BP 116/63
--- NOTE | 2020-08-21 18:25 | NUR ---
Problems reprioritized. Patient report given, questions answered & plan of care reviewed with RAH ESTRADA.
[2020-08-21] MEDS: Melatonin 3mg tablet PO SCH (20:05)
[2020-08-21] MEDS: sodium ferric gluc complex inj 125 MG in normal saline 100ml IV soln 100 ML IV SCH (20:06)
[2020-08-21 22:00] VITALS: BP 98/62
[2020-08-22] MEDS: piperacillin/tazo 3.375gm/50ml 50 ML IV SCH ×4 (00:02→23:43)
--- NOTE | 2020-08-22 06:12 | NUR ---
REPORT GIVEN TO NATALIE CHOUDHARY.
--- NOTE | 2020-08-22 06:27 | NUR ---
Patient in room ORTHO 4008. I have received report from dai salgado and had the opportunity to ask questions and assume patient care.
[2020-08-22 06:39] VITALS: BP 109/54
[2020-08-22] MEDS: buprenorphine/naloxone 8MG-2MG SUBlingual film SL SCH ×2 (07:18→19:51)
[2020-08-22] MEDS: lactobacillus rhamnosus 10,000 MMU CELLS/CAPSULE PO SCH ×2 (07:18→19:50)
[2020-08-22] MEDS: citalopram 20mg tablet PO SCH (07:18)
[2020-08-22] MEDS: DEXAMETHASONE 6 MG TABLET PO SCH (07:18)
[2020-08-22] MEDS: enoxaparin 60mg/0.6ml syringe SUBCUT SCH ×2 (07:23→19:51)
[2020-08-22] MEDS: lactose-reduced food (Ensure Enlive) - 237ml bottle PO SCH ×3 (07:26→18:17)
[2020-08-22] MEDS: K and/or MAG REPLACEMENT MC SCH ×2 (07:26→20:00)
[2020-08-22 10:47] VITALS: BP 104/53
[2020-08-22 16:42] LABS: D-DIMER 7.76 MG/L FEU (0-0.50)
[2020-08-22 18:00] VITALS: BP 111/53
--- NOTE | 2020-08-22 18:00 | NUR ---
RECEIVED REPORT FROM KENRICK ESTRADA AND ASSUMED PATIENT CARE
--- NOTE | 2020-08-22 18:43 | NUR ---
Problems reprioritized. Patient report given, questions answered & plan of care reviewed with LILLIE ESTRADA.
--- NOTE | 2020-08-22 19:15 | NUR ---
PER NERISSA WALTON CLAMP CHEST TUBE UNTIL THE MORNING THEN REPEAT X-RAY
[2020-08-22] MEDS: sodium ferric gluc complex inj 125 MG in normal saline 100ml IV soln 100 ML IV SCH (19:50)
[2020-08-22] MEDS: Melatonin 3mg tablet PO SCH (19:50)
[2020-08-22 22:00] VITALS: BP 121/58
[2020-08-23 06:15] LABS: D-DIMER 5.79 MG/L FEU (0-0.50)
--- NOTE | 2020-08-23 06:44 | NUR ---
REPORT GIVEN TO VETO ESTRADA
[2020-08-23 07:38] VITALS: BP 107/52
[2020-08-23] MEDS: piperacillin/tazo 3.375gm/50ml 50 ML IV SCH ×2 (08:00→16:53)
[2020-08-23] MEDS: K and/or MAG REPLACEMENT MC SCH ×2 (08:00→20:00)
[2020-08-23] MEDS: lactose-reduced food (Ensure Enlive) - 237ml bottle PO SCH ×3 (08:00→18:00)
[2020-08-23 10:00] VITALS: BP 116/61
[2020-08-23] MEDS: buprenorphine/naloxone 8MG-2MG SUBlingual film SL SCH ×2 (10:36→21:04)
[2020-08-23] MEDS: citalopram 20mg tablet PO SCH (10:36)
[2020-08-23] MEDS: lactobacillus rhamnosus 10,000 MMU CELLS/CAPSULE PO SCH ×2 (10:36→21:05)
[2020-08-23] MEDS: enoxaparin 60mg/0.6ml syringe SUBCUT SCH ×2 (10:37→21:05)
[2020-08-23] MEDS ORDERED: DEXAMETHASONE 6 MG TABLET PO ONE (10:45)
[2020-08-23 18:00] VITALS: BP 114/63
--- NOTE | 2020-08-23 18:19 | NUR ---
Problems reprioritized. Patient report given, questions answered & plan of care reviewed with LILLIE ESTRADA AND ALINE RODRIGUEZ.
[2020-08-23] MEDS: Melatonin 3mg tablet PO SCH (21:04)
[2020-08-23] MEDS: sodium ferric gluc complex inj 125 MG in normal saline 100ml IV soln 100 ML IV SCH (21:05)
[2020-08-23 22:00] VITALS: BP 123/58
[2020-08-24] MEDS: piperacillin/tazo 3.375gm/50ml 50 ML IV SCH ×3 (01:00→15:47)
[2020-08-24 06:00] VITALS: BP 112/51
--- NOTE | 2020-08-24 06:16 | NUR ---
REPORT GIVEN TO TRISHA ESTRADA
--- NOTE | 2020-08-24 06:23 | NUR ---
Patient in room ORTHO 4008. I have received report from Rosibel ESTRADA and Patti AGUILAR and had the opportunity to ask questions and assume patient care.
[2020-08-24 07:27] LABS: D-DIMER 4.27 MG/L FEU (0-0.50)
[2020-08-24] MEDS: lactose-reduced food (Ensure Enlive) - 237ml bottle PO SCH ×4 (07:30→18:00)
[2020-08-24] MEDS: dexamethasone 1mg tablet PO SCH (07:44)
[2020-08-24] MEDS: lactobacillus rhamnosus 10,000 MMU CELLS/CAPSULE PO SCH ×2 (07:44→20:04)
[2020-08-24] MEDS: buprenorphine/naloxone 8MG-2MG SUBlingual film SL SCH ×2 (07:44→20:05)
[2020-08-24] MEDS: enoxaparin 60mg/0.6ml syringe SUBCUT SCH ×2 (07:45→20:06)
[2020-08-24] MEDS: citalopram 20mg tablet PO SCH (07:45)
[2020-08-24] MEDS: K and/or MAG REPLACEMENT MC SCH ×2 (08:00→20:00)
[2020-08-24 10:28] VITALS: BP 117/65
[2020-08-24 18:00] VITALS: BP 103/48
--- NOTE | 2020-08-24 18:26 | NUR ---
Problems reprioritized. Patient report given, questions answered & plan of care reviewed with Rosibel ESTRADA and Iron ESTRADA.
[2020-08-24] MEDS: Melatonin 3mg tablet PO SCH (20:06)
[2020-08-24] MEDS: sodium ferric gluc complex inj 125 MG in normal saline 100ml IV soln 100 ML IV SCH (20:07)
[2020-08-24 21:23] VITALS: BP 120/59
[2020-08-25] MEDS: piperacillin/tazo 3.375gm/50ml 50 ML IV SCH ×3 (02:33→15:29)
[2020-08-25 06:00] VITALS: BP 118/56
--- NOTE | 2020-08-25 06:37 | NUR ---
REPORT GIVEN TO TARAH ESTRADA
--- NOTE | 2020-08-25 06:45 | NUR ---
Patient in room ORTHO 4008. I have received report from Rosibel ESTRADA and had the opportunity to ask questions and assume patient care.
[2020-08-25] MEDS: K and/or MAG REPLACEMENT MC SCH ×2 (08:00→19:25)
[2020-08-25] MEDS: enoxaparin 60mg/0.6ml syringe SUBCUT SCH ×2 (08:28→20:25)
[2020-08-25] MEDS: dexamethasone 1mg tablet PO SCH (08:30)
[2020-08-25] MEDS: lactobacillus rhamnosus 10,000 MMU CELLS/CAPSULE PO SCH ×2 (08:30→20:24)
[2020-08-25] MEDS: buprenorphine/naloxone 8MG-2MG SUBlingual film SL SCH ×2 (08:30→20:24)
[2020-08-25] MEDS: citalopram 20mg tablet PO SCH (08:30)
[2020-08-25] MEDS: lactose-reduced food (Ensure Enlive) - 237ml bottle PO SCH ×3 (08:38→18:00)
[2020-08-25 10:00] VITALS: BP 122/62
[2020-08-25 10:39] LABS: D-DIMER 5.95 MG/L FEU (0-0.50)
[2020-08-25 18:00] VITALS: BP 119/59
--- NOTE | 2020-08-25 18:00 | NUR ---
Patient in room ORTHO 4008. I have received report from NATALIE Mesa and had the opportunity to ask questions and assume patient care.
--- NOTE | 2020-08-25 18:27 | NUR ---
Problems reprioritized. Patient report given, questions answered & plan of care reviewed with Sangeeta ESTRADA.
[2020-08-25] MEDS: Melatonin 3mg tablet PO SCH (20:24)
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
[2020-08-25 22:00] VITALS: BP 113/54
[2020-08-26] MEDS: piperacillin/tazo 3.375gm/50ml 50 ML IV SCH ×3 (00:05→16:00)
[2020-08-26 06:00] VITALS: BP 106/51
--- NOTE | 2020-08-26 06:24 | NUR ---
Problems reprioritized. Patient report given, questions answered & plan of care reviewed with NATALIE Mesa.
--- NOTE | 2020-08-26 06:40 | NUR ---
Patient in room ORTHO 4008. I have received report from Sangeeta ESTRADA and had the opportunity to ask questions and assume patient care.
[2020-08-26] MEDS: K and/or MAG REPLACEMENT MC SCH (08:00)
[2020-08-26] MEDS: lactose-reduced food (Ensure Enlive) - 237ml bottle PO SCH ×3 (08:00→18:39)
[2020-08-26] MEDS: enoxaparin 60mg/0.6ml syringe SUBCUT SCH (08:57)
[2020-08-26] MEDS: citalopram 20mg tablet PO SCH (08:58)
[2020-08-26] MEDS: lactobacillus rhamnosus 10,000 MMU CELLS/CAPSULE PO SCH (08:58)
[2020-08-26] MEDS: dexamethasone 1mg tablet PO SCH (08:58)
[2020-08-26] MEDS: buprenorphine/naloxone 8MG-2MG SUBlingual film SL SCH (08:59)
[2020-08-26 10:00] VITALS: BP 120/59
[2020-08-26] MEDS ORDERED: APIX5TAB3 PO (14:39)
[2020-08-26] MEDS ORDERED: AMOX-580 PO (14:39)
[2020-08-26] MEDS ORDERED: buprenorphine/naloxone 8MG-2MG SUBlingual film SL ONE (18:30)
--- NOTE | 2020-08-26 18:32 | NUR ---
Patient in room ORTHO 4008. I have received report from NATALIE Mesa and had the opportunity to ask questions and assume patient care.
--- NOTE | 2020-08-26 18:54 | NUR ---
Problems reprioritized. Patient report given, questions answered & plan of care reviewed with Sangeeta ESTRADA.
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
== END 2020-08-26 19:05 | disposition home or self-care (01) | DRG 720 ==
LOC: ER 09:38 → ED HOLD 18:42 → ORTHO 4S 22:09
PROVIDERS: ADMIT Family Medicine; ATTEND Family Medicine
PROC: XW033E5 Introduction of Remdesivir Anti-infective into Peripheral Vein, Percutaneous Approach, New Technology Group 5 (ICD-10-PCS; principal; 2020-08-11)
PROC: B32T1ZZ Computerized Tomography (CT Scan) of Left Pulmonary Artery using Low Osmolar Contrast (ICD-10-PCS; 2020-08-11)
PROC: B3201ZZ Computerized Tomography (CT Scan) of Thoracic Aorta using Low Osmolar Contrast (ICD-10-PCS; 2020-08-11)
PROC: B32S1ZZ Computerized Tomography (CT Scan) of Right Pulmonary Artery using Low Osmolar Contrast (ICD-10-PCS; 2020-08-11)
PROC: 0W9B30Z Drainage of Left Pleural Cavity with Drainage Device, Percutaneous Approach (ICD-10-PCS; 2020-08-11)
PROC: 0W9B40Z Drainage of Left Pleural Cavity with Drainage Device, Percutaneous Endoscopic Approach (ICD-10-PCS; 2020-08-17)
PROC: B32T1ZZ Computerized Tomography (CT Scan) of Left Pulmonary Artery using Low Osmolar Contrast (ICD-10-PCS; 2020-08-17)
PROC: B3201ZZ Computerized Tomography (CT Scan) of Thoracic Aorta using Low Osmolar Contrast (ICD-10-PCS; 2020-08-17)
PROC: B32S1ZZ Computerized Tomography (CT Scan) of Right Pulmonary Artery using Low Osmolar Contrast (ICD-10-PCS; 2020-08-17)
DX: A40.0 Sepsis due to streptococcus, group A (principal); U07.1 COVID-19; F11.20 Opioid dependence, uncomplicated; I26.99 Other pulmonary embolism without acute cor pulmonale; I31.3 Pericardial effusion (noninflammatory); I76 Septic arterial embolism; I82.412 Acute embolism and thrombosis of left femoral vein; J12.82 Pneumonia due to coronavirus disease 2019; J85.1 Abscess of lung with pneumonia; J90 Pleural effusion, not elsewhere classified; J93.9 Pneumothorax, unspecified; R63.4 Abnormal weight loss; J93.82 Other air leak; B95.62 Methicillin resistant Staphylococcus aureus infection as the cause of diseases classified elsewhere; J96.01 Acute respiratory failure with hypoxia; F32.9 Major depressive disorder, single episode, unspecified; D50.9 Iron deficiency anemia, unspecified; N17.0 Acute kidney failure with tubular necrosis; T79.7XXA Traumatic subcutaneous emphysema, initial encounter; Z87.891 Personal history of nicotine dependence; Z79.01 Long term (current) use of anticoagulants; Z86.718 Personal history of other venous thrombosis and embolism; Z68.1 Body mass index [BMI] 19.9 or less, adult
CPT/HCPCS: 32551; 36415; 71045; 71275; 76937; 77012; 80053; 80061; 82272; 82728; 83540; 83550; 83605; 83735; 83880; 84100; 84145; 84443; 85007; 85008; 85025; 85379; 85610; 85730; 86140; 86703; 87040; 87077; 87081; 87186; 87305; 93005; 93306; 93308; 93971; 94760; 96365; 99291; 99292; G0378; J0696; J1100; J1644; J1650; J2543; J2916; J3370; J8540; Q9967

== ENCOUNTER 2020-10-26 07:24 | Inpatient (IN) | payer MEDICAID ==
[~2020-10-26] VITALS: Ht 180.3 cm; Wt 65.9 kg
[~2020-10-26 07:24] MED LIST changes: +APIX5TAB3 PO; +BUPR1FIL3 SL; -ONDA4TAB6 PO
[2020-10-26] MEDS ORDERED: albuterol 2.5 MG/3 ML nebule NEB ONE (07:30)
[2020-10-26 08:12] LABS: BASOPHILS % (AUTO) 0 % (0-1); EOSINOPHILS % (AUTO) 0 % (0-6); HEMATOCRIT 31.9 % (42.0-52.0); HEMOGLOBIN 10.6 g/dl (14.0-17.9); LYMPHOCYTES # (AUTO) 0.6 X10'3 (1.1-4.8); LYMPHOCYTES % (AUTO) 2.7 % (21-51); MEAN CORPUSCULAR HEMOGLOBIN 26.6 PG (27.0-31.0); MEAN CORPUSCULAR HGB CONC 33.2 g/dL (33.0-36.5); MEAN CORPUSCULAR VOLUME 80.1 FL (78-98); MEAN PLATELET VOLUME 6.3 FL (7.4-10.4); MONOCYTES # (AUTO) 0.9 X10'3 (0-0.9); MONOCYTES % (AUTO) 3.8 % (2-12); NEUTROPHILS % (AUTO) 93.5 % (42-75); PLATELET COUNT 544 X10'3 (140-440); RED BLOOD COUNT 3.98 X10'6 (4.70-6.10); RED CELL DISTRIBUTION WIDTH 17.8 % (11.5-14.5); WHITE BLOOD COUNT 23.6 X10'3 (4.5-11.0)
[2020-10-26 08:24] LABS: PARTIAL THROMBOPLASTIN TIME 30 SECONDS (22-32)
[2020-10-26] MEDS ORDERED: azithromycin/NS 500mg/250ml 250 ML IV ONE (08:40)
[2020-10-26] MEDS ORDERED: vancomycin/NS 1 GM ADD-VANTAGE 250 ML IV ONE (08:40)
[2020-10-26] MEDS ORDERED: piperacillin/tazo 3.375gm/50ml 50 ML IV ONE (08:40)
[2020-10-26 09:24] LABS: ANISOCYTOSIS 1+; PLATELET ESTIMATE INCREASED; TOTAL CELLS COUNTED 100
[2020-10-26 09:29] LABS: HYPOCHROMASIA 1+; POLYCHROMASIA FEW
[2020-10-26 09:34] LABS: ALANINE AMINOTRANSFERASE 35 U/L (12-78); ALBUMIN 1.5 G/DL (3.4-5.0); ALBUMIN/GLOBULIN RATIO 0.3 (1.1-1.5); ANION GAP 6 (8-16); ASPARTATE AMINO TRANSFERASE 46 U/L (10-37); BILIRUBIN,TOTAL 0.4 MG/DL (0.1-1.0); BLOOD UREA NITROGEN 18 MG/DL (7-18); BUN/CREATININE RATIO 26.1 (5.4-32.0); CALCIUM 9.1 MG/DL (8.5-10.1); CHLORIDE 97 MMOL/L (99-107); CREATININE 0.69 MG/DL (0.60-1.10); GLUCOSE 102 MG/DL (70-104); POTASSIUM 3.5 MMOL/L (3.5-5.1); SODIUM 130 MMOL/L (135-145); TOTAL CARBON DIOXIDE 27.2 MMOL/L (24-32); TOTAL PROTEIN 7.3 G/DL (6.4-8.2); eGFR > 90 ML/MIN
[2020-10-26] MEDS ORDERED: normal saline 1000ML IV soln IVB ONE (09:40)
[2020-10-26] MEDS ORDERED: iohexol 350MG/ML 100ml bottle IV ONE (10:28)
[2020-10-26 11:16] LABS: ALKALINE PHOSPHATASE 97 IU/L (46-116)
--- NOTE | 2020-10-26 11:29 | NUR ---
Pt on monitor. Gave food per request. MD [place] w/pt eating at this time.
--- NOTE | 2020-10-26 12:49 | NUR ---
Dr. Pulliam at bedside
--- NOTE | 2020-10-26 12:57 | NUR ---
NOTIFIED DR. CRANDALL OF INCREASED RR AND HR. MD TO PLACE NEW ORDERS.
--- NOTE | 2020-10-26 12:58 | NUR ---
PT STATED HE LAST USED [facility] 5 DAYS AGO, [facility] LAST TAKEN 2 DAYS AGO.
[2020-10-26] MEDS ORDERED: buprenorphine/naloxone 8MG-2MG SUBlingual film SL SCH (13:00)
[2020-10-26] MEDS ORDERED: buprenorphine/naloxone 8MG-2MG SUBlingual film SL ONE (13:00)
[2020-10-26] MEDS ORDERED: magnesium Cl slow-release 64mg tablet PO PRN (13:10)
[2020-10-26] MEDS ORDERED: potassium Cl 20 mEq SR tablet PO PRN ×2 (13:10)
[2020-10-26] MEDS ORDERED: potassium Cl 40MEQ/1/2NS 520ml 520 ML IV PRN ×2 (13:10)
[2020-10-26] MEDS ORDERED: magnesium 4gm in 100ml NS 100 ML IV PRN (13:10)
[2020-10-26] MEDS ORDERED: ondansetron/PF 4mg/2ml inj IV PRN (13:10)
[2020-10-26] MEDS ORDERED: HYDROcodone/acetaminophen 5mg/325mg tablet PO PRN (13:10)
[2020-10-26] MEDS ORDERED: magnesium hydroxide 30ml (MOM) UD suspension PO PRN (13:10)
[2020-10-26] MEDS ORDERED: magnesium 2GM in 50ml NS 50 ML IV PRN (13:10)
[2020-10-26] MEDS ORDERED: mag hydrox/Alum hydrox/simeth 30ml oral suspension PO PRN (13:10)
[2020-10-26] MEDS ORDERED: normal saline 1000ml 1,000 ML IV ONE (13:15)
[2020-10-26] MEDS: normal saline 1000ml 1,000 ML IV SCH (13:28)
[2020-10-26] MEDS ORDERED: vancomycin/NS 1 GM ADD-VANTAGE 250 ML X 1 DOSE IV SCH ×2 (14:00→14:12)
--- NOTE | 2020-10-26 14:14 | NUR ---
BEDSIDE ECHO PERFORMED
[2020-10-26 14:38] LABS: URINE AMPHETAMINE SCREEN POSITIVE (Neg); URINE BARBITUATE SCREEN NEGATIVE (Neg); URINE BENZODIAZEPINES SCREEN NEGATIVE (Neg); URINE CANNABINOID SCREEN POSITIVE (Neg); URINE COCAINE SCREEN NEGATIVE (Neg); URINE METHADONE SCREEN NEGATIVE (Neg); URINE OPIATE SCREEN POSITIVE (Neg); URINE PHENCYCLIDINE SCREEN NEGATIVE (Neg)
[2020-10-26] MEDS: piperacillin/tazo 3.375gm/50ml 50 ML IV SCH (16:13)
[2020-10-26 17:38] VITALS: BP 133/85
[2020-10-26 18:00] VITALS: BP 133/85
--- NOTE | 2020-10-26 18:00 | NUR ---
Patient in room PCU 3020. I have received report from NATALIE MCCLELLAN and had the opportunity to ask questions and assume patient care.
[2020-10-26] MEDS: K and/or MAG REPLACEMENT MC SCH (20:00)
[2020-10-26] MEDS: apixaban 5mg tablet PO SCH (22:13)
[2020-10-26] MEDS: vancomycin/NS 1 GM ADD-VANTAGE 250 ML X 1 DOSE IV SCH (22:14)
[2020-10-26] MEDS: buprenorphine/naloxone 8MG-2MG SUBlingual film SL SCH (22:14)
[2020-10-27] MEDS: piperacillin/tazo 3.375gm/50ml 50 ML IV SCH ×3 (00:36→15:48)
[2020-10-27 02:00] VITALS: BP 130/81
[2020-10-27] MEDS: vancomycin/NS 1 GM ADD-VANTAGE 250 ML X 1 DOSE IV SCH ×3 (04:00→19:37)
--- NOTE | 2020-10-27 06:14 | NUR ---
Problems reprioritized. Patient report given, questions answered & plan of care reviewed with NATALIE HEARN.
--- NOTE | 2020-10-27 06:33 | NUR ---
Patient in room PCU 3020. I have received report from NATALIE Crisostomo and had the opportunity to ask questions and assume patient care. Patient awake in bed and in no acute distress.
[2020-10-27 06:43] LABS: BASOPHILS % (AUTO) 0.1 % (0-1); EOSINOPHILS % (AUTO) 0.2 % (0-6); HEMATOCRIT 32.8 % (42.0-52.0); HEMOGLOBIN 10.6 g/dl (14.0-17.9); LYMPHOCYTES # (AUTO) 1.3 X10'3 (1.1-4.8); LYMPHOCYTES % (AUTO) 9.2 % (21-51); MEAN CORPUSCULAR HEMOGLOBIN 26.4 PG (27.0-31.0); MEAN CORPUSCULAR HGB CONC 32.4 g/dL (33.0-36.5); MEAN CORPUSCULAR VOLUME 81.5 FL (78-98); MEAN PLATELET VOLUME 6.4 FL (7.4-10.4); MONOCYTES # (AUTO) 0.7 X10'3 (0-0.9); MONOCYTES % (AUTO) 5.1 % (2-12); NEUTROPHILS # (AUTO) 12.5 X10'3 (1.8-7.7); NEUTROPHILS % (AUTO) 85.4 % (42-75); PLATELET COUNT 449 X10'3 (140-440); RED BLOOD COUNT 4.03 X10'6 (4.70-6.10); RED CELL DISTRIBUTION WIDTH 18.1 % (11.5-14.5); WHITE BLOOD COUNT 14.6 X10'3 (4.5-11.0)
[2020-10-27 07:00] VITALS: BP 135/80
[2020-10-27 07:13] LABS: ALANINE AMINOTRANSFERASE 29 U/L (12-78); ALBUMIN 1.3 G/DL (3.4-5.0); ALBUMIN/GLOBULIN RATIO 0.2 (1.1-1.5); ALKALINE PHOSPHATASE 74 IU/L (46-116); ANION GAP 8 (8-16); ASPARTATE AMINO TRANSFERASE 30 U/L (10-37); BILIRUBIN,TOTAL 0.3 MG/DL (0.1-1.0); BLOOD UREA NITROGEN 15 MG/DL (7-18); BUN/CREATININE RATIO 21.7 (5.4-32.0); CALCIUM 9.2 MG/DL (8.5-10.1); CHLORIDE 101 MMOL/L (99-107); CREATININE 0.69 MG/DL (0.60-1.10); GLUCOSE 87 MG/DL (70-104); MAGNESIUM 2.2 MG/DL (1.5-2.4); POTASSIUM 3.9 MMOL/L (3.5-5.1); SODIUM 136 MMOL/L (135-145); TOTAL CARBON DIOXIDE 27.5 MMOL/L (24-32); eGFR > 90 ML/MIN
[2020-10-27] MEDS ORDERED: famotidine/PF 10 mg/ml inj IV ONE (07:55)
[2020-10-27] MEDS: K and/or MAG REPLACEMENT MC SCH ×2 (08:00→19:38)
[2020-10-27] MEDS: apixaban 5mg tablet PO SCH ×2 (08:00→19:37)
--- NOTE | 2020-10-27 08:25 | NUR ---
Paged Dr. Kramer regarding positive blood cultures. PAGER ID: [phone] MESSAGE: [phone]. Scotty Maldonado. Positive blood cultures right arm, gram + cocci clusters. Thank you. Ondina ESTRADA x [phone]
--- NOTE | 2020-10-27 08:53 | NUR ---
Called Dr. Pritchett for verification on antibiotics and medications that the patient is currently receiving. Dr. Pritchett said to hold the eliquis but that everything else was fine to give.
[2020-10-27] MEDS: buprenorphine/naloxone 8MG-2MG SUBlingual film SL SCH ×2 (09:30→19:37)
[2020-10-27 10:03] LABS: PARTIAL THROMBOPLASTIN TIME 32 SECONDS (22-32)
[2020-10-27 11:00] VITALS: BP 131/74
[2020-10-27] MEDS ORDERED: VANCOMYCIN LEVEL IV ONE (11:30)
[2020-10-27 15:00] VITALS: BP 135/85
[2020-10-27 18:00] VITALS: BP 123/78
--- NOTE | 2020-10-27 18:26 | NUR ---
Problems reprioritized. Patient report given, questions answered & plan of care reviewed with NATALIE Crisostomo. Patient stable at transfer of care.
[2020-10-27] MEDS: lactobacillus rhamnosus 10,000 MMU CELLS/CAPSULE PO SCH (19:37)
[2020-10-27 20:00] VITALS: BP 134/81
[2020-10-27] MEDS: ipratropium/albuterol 3ml nebule NEB PRN (20:16)
[2020-10-27] MEDS: HYDROcodone/acetaminophen 10/325mg tab PO PRN (23:57)
--- NOTE | 2020-10-28 00:12 | NUR ---
pt lost his IV access, i have tried all avenuesto get a new one with 3 other nurses trying but to no avail. The charge nurse was informed and she agreed that he willnedd some form of central line in the morning.
[2020-10-28 02:00] VITALS: BP 140/85
--- NOTE | 2020-10-28 06:17 | NUR ---
Problems reprioritized. Patient report given, questions answered & plan of care reviewed with NATALIE BELL.
--- NOTE | 2020-10-28 06:29 | NUR ---
Patient in room PCU 3020. I have received report from Ronan salgado and had the opportunity to ask questions and assume patient care.
[2020-10-28 06:54] LABS: BASOPHILS % (AUTO) 0.1 % (0-1); EOSINOPHILS # (AUTO) 0.1 X10'3 (0-0.9); EOSINOPHILS % (AUTO) 1.2 % (0-6); HEMATOCRIT 31.6 % (42.0-52.0); HEMOGLOBIN 10.1 g/dl (14.0-17.9); LYMPHOCYTES # (AUTO) 1.4 X10'3 (1.1-4.8); LYMPHOCYTES % (AUTO) 11.8 % (21-51); MEAN CORPUSCULAR HEMOGLOBIN 26.1 PG (27.0-31.0); MEAN CORPUSCULAR HGB CONC 31.9 g/dL (33.0-36.5); MEAN CORPUSCULAR VOLUME 81.9 FL (78-98); MEAN PLATELET VOLUME 6.3 FL (7.4-10.4); MONOCYTES # (AUTO) 0.9 X10'3 (0-0.9); MONOCYTES % (AUTO) 7.9 % (2-12); NEUTROPHILS # (AUTO) 9.5 X10'3 (1.8-7.7); PLATELET COUNT 466 X10'3 (140-440); RED BLOOD COUNT 3.85 X10'6 (4.70-6.10)
[2020-10-28 07:00] VITALS: BP 125/87
[2020-10-28 07:19] LABS: ALANINE AMINOTRANSFERASE 36 U/L (12-78); ALBUMIN 1.3 G/DL (3.4-5.0); ALBUMIN/GLOBULIN RATIO 0.2 (1.1-1.5); ALKALINE PHOSPHATASE 89 IU/L (46-116); ANION GAP 6 (8-16); ASPARTATE AMINO TRANSFERASE 46 U/L (10-37); BILIRUBIN,TOTAL 0.2 MG/DL (0.1-1.0); BLOOD UREA NITROGEN 11 MG/DL (7-18); BUN/CREATININE RATIO 15.3 (5.4-32.0); CALCIUM 8.8 MG/DL (8.5-10.1); CHLORIDE 101 MMOL/L (99-107); CREATININE 0.72 MG/DL (0.60-1.10); GLUCOSE 99 MG/DL (70-104); MAGNESIUM 2.2 MG/DL (1.5-2.4); SODIUM 139 MMOL/L (135-145); TOTAL CARBON DIOXIDE 32.5 MMOL/L (24-32); TOTAL PROTEIN 7.1 G/DL (6.4-8.2); eGFR > 90 ML/MIN
--- NOTE | 2020-10-28 07:30 | NUR ---
PAGER ID: [phone] MESSAGE: [phone] pt White can I have an order for an alternative site IV please. Pt has been poked several times with no success. See good veins on legs, no hx of DVT listed - Eun [phone]
--- NOTE | 2020-10-28 07:35 | NUR ---
Dr. Sales called regarding line. ordered PICC, due to the long amounts/time of antibiotics needed. Will continue to monitor.
[2020-10-28] MEDS: ipratropium/albuterol 3ml nebule NEB PRN ×3 (07:36→20:14)
--- NOTE | 2020-10-28 07:39 | NUR ---
Paged PICC Nurse Re: Scotty Maldonado RM 1394. ordered PICC, no access as of right now. Jud Turciose, Kacy RN [phone]
[2020-10-28] MEDS: K and/or MAG REPLACEMENT MC SCH ×2 (08:00→19:45)
[2020-10-28] MEDS: apixaban 5mg tablet PO SCH ×2 (08:35→19:44)
[2020-10-28] MEDS: lactobacillus rhamnosus 10,000 MMU CELLS/CAPSULE PO SCH ×2 (08:35→19:45)
[2020-10-28] MEDS: buprenorphine/naloxone 8MG-2MG SUBlingual film SL SCH ×2 (08:35→19:45)
[2020-10-28 11:00] VITALS: BP 129/78
[2020-10-28] MEDS: normal saline 1000ml 1,000 ML IV SCH (13:10)
--- NOTE | 2020-10-28 14:00 | NUR ---
Called Pharmacy and spoke with Dung in regards to the IV antibiotics that were late due to having trouble getting a line into patient. Dung has advised us to just start meds in the next order on JUL. Zosyn will be given at 1600, and Malcom was advised to get now and then continue treatment. PICC nurse is in room putting a ext line into patient. Pharmacist, Santy was made aware that a PICC was placed and still would need another line. Pharmacy mentioned that he will adjust time to antibiotics to be retimed/ We will continue to monitor.
[2020-10-28] MEDS ORDERED: vancomycin/NS 1 GM ADD-VANTAGE 250 ML X 1 DOSE IV SCH (14:07)
[2020-10-28 15:00] VITALS: BP 131/71
--- NOTE | 2020-10-28 16:03 | NUR ---
PAGER ID: [phone] MESSAGE: [phone] WHITE. HE IS EXTREMELY ANXIOUS OVER HIS BLEEDING PIC LINE. MAY I HAVE AN ORDER FOR PO ANTIANXIETY MED. THANK YOU. IRINEO HARRIS [facility] 1113
[2020-10-28] MEDS ORDERED: LORazepam 0.5 MG tablet PO ONE (16:05)
[2020-10-28] MEDS: VANCOMYCIN 1GM/200ML IVPB 200 ML IV SCH ×2 (17:03→21:51)
--- NOTE | 2020-10-28 17:12 | NUR ---
Page to Radiology: 3020 pt White had PICC line placed that is consistently bleeding. CXR says the PICC "overlies the SVC" is this correct placement? Can we have a more direct read of the image please. Thank you - [phone] Addendum: 10/28/20 at 1720 by Eun Cuevas RN Received call back from Radiology who confirmed that the PICC is in the right place.
[2020-10-28 18:00] VITALS: BP 138/75
--- NOTE | 2020-10-28 18:00 | NUR ---
Patient in room PCU 3020. I have received report from NATALIE BELL and had the opportunity to ask questions and assume patient care.
--- NOTE | 2020-10-28 18:02 | NUR ---
Problems reprioritized. Patient report given, questions answered & plan of care reviewed with Andressa ESTRADA.
[2020-10-28] MEDS: piperacillin/tazo 3.375gm/50ml 50 ML IV SCH (19:44)
[2020-10-28 22:00] VITALS: BP 115/79
[2020-10-29] MEDS: piperacillin/tazo 3.375gm/50ml 50 ML IV SCH ×4 (00:32→23:33)
[2020-10-29] MEDS: normal saline 1000ml 1,000 ML IV SCH (00:32)
[2020-10-29 02:00] VITALS: BP 137/73
--- NOTE | 2020-10-29 06:07 | NUR ---
Problems reprioritized. Patient report given, questions answered & plan of care reviewed with NATALIE BELL.
--- NOTE | 2020-10-29 06:18 | NUR ---
Patient in room PCU 3020. I have received report from Andressa ESTRADA and had the opportunity to ask questions and assume patient care.
[2020-10-29 07:00] VITALS: BP 127/74
[2020-10-29] MEDS: buprenorphine/naloxone 8MG-2MG SUBlingual film SL SCH ×2 (07:20→19:54)
[2020-10-29] MEDS: lactobacillus rhamnosus 10,000 MMU CELLS/CAPSULE PO SCH ×2 (07:21→19:54)
[2020-10-29] MEDS: apixaban 5mg tablet PO SCH ×2 (07:21→19:54)
[2020-10-29] MEDS: VANCOMYCIN 1GM/200ML IVPB 200 ML IV SCH ×3 (07:22→22:23)
[2020-10-29 07:30] LABS: BASOPHILS % (AUTO) 0.2 % (0-1); EOSINOPHILS # (AUTO) 0.1 X10'3 (0-0.9); EOSINOPHILS % (AUTO) 1.2 % (0-6); HEMATOCRIT 27.5 % (42.0-52.0); HEMOGLOBIN 8.9 g/dl (14.0-17.9); LYMPHOCYTES # (AUTO) 1.4 X10'3 (1.1-4.8); LYMPHOCYTES % (AUTO) 11.9 % (21-51); MEAN CORPUSCULAR HEMOGLOBIN 26.4 PG (27.0-31.0); MEAN CORPUSCULAR HGB CONC 32.4 g/dL (33.0-36.5); MEAN CORPUSCULAR VOLUME 81.3 FL (78-98); MEAN PLATELET VOLUME 6.5 FL (7.4-10.4); MONOCYTES # (AUTO) 1.1 X10'3 (0-0.9); MONOCYTES % (AUTO) 9.3 % (2-12); NEUTROPHILS # (AUTO) 9.2 X10'3 (1.8-7.7); NEUTROPHILS % (AUTO) 77.4 % (42-75); PLATELET COUNT 532 X10'3 (140-440); RED BLOOD COUNT 3.39 X10'6 (4.70-6.10); RED CELL DISTRIBUTION WIDTH 17.9 % (11.5-14.5); WHITE BLOOD COUNT 11.9 X10'3 (4.5-11.0)
[2020-10-29 07:45] LABS: ALANINE AMINOTRANSFERASE 32 U/L (12-78); ALBUMIN 1.2 G/DL (3.4-5.0); ALBUMIN/GLOBULIN RATIO 0.2 (1.1-1.5); ALKALINE PHOSPHATASE 72 IU/L (46-116); ANION GAP 4 (8-16); ASPARTATE AMINO TRANSFERASE 27 U/L (10-37); BILIRUBIN,TOTAL 0.2 MG/DL (0.1-1.0); BLOOD UREA NITROGEN 10 MG/DL (7-18); BUN/CREATININE RATIO 16.7 (5.4-32.0); CALCIUM 8.6 MG/DL (8.5-10.1); CHLORIDE 100 MMOL/L (99-107); GLUCOSE 98 MG/DL (70-104); POTASSIUM 3.7 MMOL/L (3.5-5.1); SODIUM 139 MMOL/L (135-145); TOTAL CARBON DIOXIDE 34.7 MMOL/L (24-32); TOTAL PROTEIN 6.8 G/DL (6.4-8.2); eGFR > 90 ML/MIN
[2020-10-29] MEDS: K and/or MAG REPLACEMENT MC SCH ×2 (08:00→19:55)
--- NOTE | 2020-10-29 08:51 | NUR ---
Paged Dr. Owen PAGER ID: [phone] MESSAGE: Re: Scotty Maldonado RM 8237. Critical value + blood cultures for mrsa and + MRSA in nares. Pt on antibiotics Zosyn and Vanco Thank you Kacy ESTRADA [phone] Addendum: 10/29/20 at 1053 by Kacy Sanders RN Md at bedside with patient and nurse. MD is aware of Labs, continue treatments. Will continue to monitor.
--- NOTE | 2020-10-29 10:53 | NUR ---
Paged RT Re: Scotty Maldonado Rm 8804, requesting a breathing treatment. Thank you Kacy ESTRADA [phone]
[2020-10-29 11:00] VITALS: BP 123/81
[2020-10-29] MEDS: ipratropium/albuterol 3ml nebule NEB PRN ×2 (11:01→21:06)
[2020-10-29 15:00] VITALS: BP 125/78
[2020-10-29 18:00] VITALS: BP 150/76
--- NOTE | 2020-10-29 18:00 | NUR ---
Patient in room PCU 3020. I have received report from Kacy ESTRADA and had the opportunity to ask questions and assume patient care.
--- NOTE | 2020-10-29 18:09 | NUR ---
Problems reprioritized. Patient report given, questions answered & plan of care reviewed with Daphne ESTRADA.
[2020-10-29 22:00] VITALS: BP 142/87
[2020-10-30 02:00] VITALS: BP 131/69
[2020-10-30 03:11] LABS: BASOPHILS # (AUTO) 0.1 X10'3 (0-0.2); BASOPHILS % (AUTO) 0.6 % (0-1); EOSINOPHILS # (AUTO) 0.2 X10'3 (0-0.9); EOSINOPHILS % (AUTO) 1.6 % (0-6); HEMATOCRIT 26.1 % (42.0-52.0); HEMOGLOBIN 8.5 g/dl (14.0-17.9); LYMPHOCYTES # (AUTO) 1.9 X10'3 (1.1-4.8); MEAN CORPUSCULAR HEMOGLOBIN 26.3 PG (27.0-31.0); MEAN CORPUSCULAR HGB CONC 32.4 g/dL (33.0-36.5); MEAN CORPUSCULAR VOLUME 81.2 FL (78-98); MONOCYTES # (AUTO) 1.1 X10'3 (0-0.9); MONOCYTES % (AUTO) 9.5 % (2-12); NEUTROPHILS # (AUTO) 8.6 X10'3 (1.8-7.7); NEUTROPHILS % (AUTO) 72.3 % (42-75); PLATELET COUNT 479 X10'3 (140-440); RED BLOOD COUNT 3.22 X10'6 (4.70-6.10); RED CELL DISTRIBUTION WIDTH 18.2 % (11.5-14.5); WHITE BLOOD COUNT 11.9 X10'3 (4.5-11.0)
[2020-10-30 03:57] LABS: ALANINE AMINOTRANSFERASE 31 U/L (12-78); ALBUMIN 1.1 G/DL (3.4-5.0); ALBUMIN/GLOBULIN RATIO 0.2 (1.1-1.5); ALKALINE PHOSPHATASE 70 IU/L (46-116); ANION GAP 2 (8-16); ASPARTATE AMINO TRANSFERASE 30 U/L (10-37); BILIRUBIN,TOTAL 0.1 MG/DL (0.1-1.0); BLOOD UREA NITROGEN 9 MG/DL (7-18); BUN/CREATININE RATIO 14.8 (5.4-32.0); CALCIUM 8.3 MG/DL (8.5-10.1); CHLORIDE 102 MMOL/L (99-107); CREATININE 0.61 MG/DL (0.60-1.10); GLUCOSE 92 MG/DL (70-104); MAGNESIUM 1.9 MG/DL (1.5-2.4); POTASSIUM 3.9 MMOL/L (3.5-5.1); SODIUM 139 MMOL/L (135-145); TOTAL CARBON DIOXIDE 34.9 MMOL/L (24-32); TOTAL PROTEIN 6.9 G/DL (6.4-8.2); eGFR > 90 ML/MIN
[2020-10-30] MEDS: VANCOMYCIN 1GM/200ML IVPB 200 ML IV SCH ×2 (05:39→14:10)
[2020-10-30 06:00] VITALS: BP 113/74
--- NOTE | 2020-10-30 06:11 | NUR ---
Problems reprioritized. Patient report given, questions answered & plan of care reviewed with HERIBERTO ESTRADA.
--- NOTE | 2020-10-30 06:22 | NUR ---
Patient in room PCU 3020. I have received report from Daphne ESTRADA and had the opportunity to ask questions and assume patient care.
[2020-10-30] MEDS: K and/or MAG REPLACEMENT MC SCH ×2 (08:00→20:00)
[2020-10-30] MEDS: piperacillin/tazo 3.375gm/50ml 50 ML IV SCH ×3 (08:39→23:59)
[2020-10-30] MEDS: lactobacillus rhamnosus 10,000 MMU CELLS/CAPSULE PO SCH ×2 (08:41→21:26)
[2020-10-30] MEDS: buprenorphine/naloxone 8MG-2MG SUBlingual film SL SCH ×2 (08:43→21:25)
[2020-10-30] MEDS: apixaban 5mg tablet PO SCH ×2 (08:43→21:26)
[2020-10-30] MEDS: HYDROcodone/acetaminophen 10/325mg tab PO PRN ×2 (08:43→14:55)
[2020-10-30 11:00] VITALS: BP 131/73
[2020-10-30] MEDS: normal saline 1000ml 1,000 ML IV SCH (12:31)
[2020-10-30] MEDS ORDERED: VANCOMYCIN LEVEL IV ONE (13:30)
[2020-10-30 15:00] VITALS: BP 114/83
--- NOTE | 2020-10-30 17:19 | NUR ---
paged RT to come complete Breathing treatment RM 20 Scotty Maldonado is SOB and wheezing, please come and complete PRN breathing treatment. Thank you Naty ESTRADA [phone]
[2020-10-30] MEDS: ipratropium/albuterol 3ml nebule NEB PRN (17:30)
[2020-10-30 18:00] VITALS: BP 116/74
--- NOTE | 2020-10-30 18:20 | NUR ---
Problems reprioritized. Patient report given, questions answered & plan of care reviewed with Alexus ESTRADA.
[2020-10-30] MEDS: VANCOmycin 1250MG/NS 250ml Bag 250 ML IV SCH (21:26)
[2020-10-30 22:00] VITALS: BP 119/76
[2020-10-31 02:00] VITALS: BP 116/86
[2020-10-31 04:10] LABS: BASOPHILS # (AUTO) 0.1 X10'3 (0-0.2); BASOPHILS % (AUTO) 0.6 % (0-1); EOSINOPHILS # (AUTO) 0.2 X10'3 (0-0.9); EOSINOPHILS % (AUTO) 1.6 % (0-6); HEMATOCRIT 27.2 % (42.0-52.0); HEMOGLOBIN 8.8 g/dl (14.0-17.9); LYMPHOCYTES # (AUTO) 1.8 X10'3 (1.1-4.8); LYMPHOCYTES % (AUTO) 13.9 % (21-51); MEAN CORPUSCULAR HEMOGLOBIN 26.4 PG (27.0-31.0); MEAN CORPUSCULAR HGB CONC 32.4 g/dL (33.0-36.5); MEAN CORPUSCULAR VOLUME 81.4 FL (78-98); MEAN PLATELET VOLUME 6.1 FL (7.4-10.4); MONOCYTES % (AUTO) 7.7 % (2-12); NEUTROPHILS # (AUTO) 9.8 X10'3 (1.8-7.7); NEUTROPHILS % (AUTO) 76.2 % (42-75); PLATELET COUNT 542 X10'3 (140-440); RED BLOOD COUNT 3.34 X10'6 (4.70-6.10); RED CELL DISTRIBUTION WIDTH 18.2 % (11.5-14.5); WHITE BLOOD COUNT 12.9 X10'3 (4.5-11.0)
[2020-10-31 04:23] LABS: ALANINE AMINOTRANSFERASE 36 U/L (12-78); ALBUMIN 1.2 G/DL (3.4-5.0); ALBUMIN/GLOBULIN RATIO 0.2 (1.1-1.5); ALKALINE PHOSPHATASE 70 IU/L (46-116); ANION GAP 3 (8-16); ASPARTATE AMINO TRANSFERASE 30 U/L (10-37); BILIRUBIN,TOTAL 0.2 MG/DL (0.1-1.0); BLOOD UREA NITROGEN 10 MG/DL (7-18); BUN/CREATININE RATIO 14.9 (5.4-32.0); CALCIUM 8.7 MG/DL (8.5-10.1); CHLORIDE 100 MMOL/L (99-107); CREATININE 0.67 MG/DL (0.60-1.10); GLUCOSE 90 MG/DL (70-104); MAGNESIUM 2.1 MG/DL (1.5-2.4); POTASSIUM 4.1 MMOL/L (3.5-5.1); SODIUM 139 MMOL/L (135-145); TOTAL CARBON DIOXIDE 36.5 MMOL/L (24-32); TOTAL PROTEIN 7.4 G/DL (6.4-8.2); eGFR > 90 ML/MIN
[2020-10-31] MEDS: VANCOmycin 1250MG/NS 250ml Bag 250 ML IV SCH ×3 (05:11→21:37)
[2020-10-31 06:00] VITALS: BP 125/82
--- NOTE | 2020-10-31 06:05 | NUR ---
Patient in room PCU 3020. I have received report from Alexus ESTRADA and had the opportunity to ask questions and assume patient care.
--- NOTE | 2020-10-31 06:26 | NUR ---
Problems reprioritized. Patient report given, questions answered & plan of care reviewed with Naty ESTRADA.
[2020-10-31] MEDS: K and/or MAG REPLACEMENT MC SCH ×2 (07:44→20:00)
[2020-10-31] MEDS: lactobacillus rhamnosus 10,000 MMU CELLS/CAPSULE PO SCH ×2 (08:02→20:15)
[2020-10-31] MEDS: apixaban 5mg tablet PO SCH ×2 (08:02→20:15)
[2020-10-31] MEDS: buprenorphine/naloxone 8MG-2MG SUBlingual film SL SCH ×2 (08:02→20:14)
[2020-10-31] MEDS: piperacillin/tazo 3.375gm/50ml 50 ML IV SCH ×3 (08:02→23:54)
--- NOTE | 2020-10-31 09:55 | NUR ---
Initial: Pt admit for PNA with right pneumothorax. Pt with sepsis secondary to MRSA per MD note. Pt on a regular diet with average 75-100% PO intake. Recommend double protein with meals for satiety and increased protein needs. [facility] 10/30. Will continue to follow and monitor need for further nutrition intervention. Recommendations: 1) Continue regular diet 2) Double eggs WB, double meat BIDLD 3) Routine bowel care 4) Scaled weight this admit; weekly scaled weights thereafter Addendum: 10/31/20 at [address] Amended: Links added.
[2020-10-31 11:00] VITALS: BP 133/81
[2020-10-31 15:00] VITALS: BP 124/87
[2020-10-31 18:00] VITALS: BP 144/81
--- NOTE | 2020-10-31 18:04 | NUR ---
Problems reprioritized. Patient report given, questions answered & plan of care reviewed with Bonita ESTRADA.
[2020-10-31] MEDS: ipratropium/albuterol 3ml nebule NEB PRN (19:11)
[2020-10-31] MEDS: mineral oil/petrolatum, white cream 113gm jar TP SCH (20:15)
[2020-10-31] MEDS ORDERED: VANCOMYCIN LEVEL IV ONE (20:30)
--- NOTE | 2020-10-31 21:00 | NUR ---
Vanc trough 20.6. Pharmacy notified and per pharmacist, Do not hold doses. Doses will be adjusted in AM.
[2020-10-31 21:44] VITALS: BP 118/77
[2020-11-01 01:45] VITALS: BP 121/79
--- NOTE | 2020-11-01 04:34 | NUR ---
PAGER ID: [phone] MESSAGE: Room 3020 White has a strong persistent cough and is requesting cough medicine. Admitted with pna, has r.lovulated pneumo. yari Castro, or reshma would be appreciated. Bonita [phone]
[2020-11-01 04:54] LABS: ALANINE AMINOTRANSFERASE 26 U/L (12-78); ALBUMIN 1.2 G/DL (3.4-5.0); ALBUMIN/GLOBULIN RATIO 0.2 (1.1-1.5); ALKALINE PHOSPHATASE 67 IU/L (46-116); ANION GAP 2 (8-16); ASPARTATE AMINO TRANSFERASE 30 U/L (10-37); BILIRUBIN,TOTAL 0.2 MG/DL (0.1-1.0); BLOOD UREA NITROGEN 12 MG/DL (7-18); BUN/CREATININE RATIO 18.2 (5.4-32.0); CALCIUM 8.7 MG/DL (8.5-10.1); CHLORIDE 101 MMOL/L (99-107); CREATININE 0.66 MG/DL (0.60-1.10); GLUCOSE 92 MG/DL (70-104); MAGNESIUM 2.2 MG/DL (1.5-2.4); POTASSIUM 4.3 MMOL/L (3.5-5.1); SODIUM 136 MMOL/L (135-145); TOTAL CARBON DIOXIDE 33.2 MMOL/L (24-32); TOTAL PROTEIN 7.6 G/DL (6.4-8.2); eGFR > 90 ML/MIN
[2020-11-01 05:05] LABS: BASOPHILS # (AUTO) 0.1 X10'3 (0-0.2); BASOPHILS % (AUTO) 0.6 % (0-1); EOSINOPHILS # (AUTO) 0.2 X10'3 (0-0.9); EOSINOPHILS % (AUTO) 1.4 % (0-6); HEMATOCRIT 27.9 % (42.0-52.0); LYMPHOCYTES # (AUTO) 2.1 X10'3 (1.1-4.8); LYMPHOCYTES % (AUTO) 17.7 % (21-51); MEAN CORPUSCULAR HEMOGLOBIN 26.4 PG (27.0-31.0); MEAN CORPUSCULAR VOLUME 82.4 FL (78-98); MEAN PLATELET VOLUME 6.8 FL (7.4-10.4); MONOCYTES % (AUTO) 7.8 % (2-12); NEUTROPHILS # (AUTO) 8.8 X10'3 (1.8-7.7); NEUTROPHILS % (AUTO) 72.5 % (42-75); PLATELET COUNT 475 X10'3 (140-440); RED BLOOD COUNT 3.39 X10'6 (4.70-6.10); RED CELL DISTRIBUTION WIDTH 18.2 % (11.5-14.5); WHITE BLOOD COUNT 12.2 X10'3 (4.5-11.0)
[2020-11-01] MEDS: VANCOmycin 1250MG/NS 250ml Bag 250 ML IV SCH ×3 (05:35→21:22)
[2020-11-01 06:00] VITALS: BP 120/78
--- NOTE | 2020-11-01 06:21 | NUR ---
Patient in room PCU 3020. I have received report from Bonita ESTRADA and had the opportunity to ask questions and assume patient care.
[2020-11-01] MEDS: K and/or MAG REPLACEMENT MC SCH ×2 (06:42→20:00)
[2020-11-01] MEDS: buprenorphine/naloxone 8MG-2MG SUBlingual film SL SCH ×2 (08:51→19:39)
[2020-11-01] MEDS: piperacillin/tazo 3.375gm/50ml 50 ML IV SCH ×3 (08:51→23:56)
[2020-11-01] MEDS: lactobacillus rhamnosus 10,000 MMU CELLS/CAPSULE PO SCH ×2 (08:51→19:39)
[2020-11-01] MEDS: apixaban 5mg tablet PO SCH ×2 (08:51→19:39)
[2020-11-01] MEDS: mineral oil/petrolatum, white cream 113gm jar TP SCH ×2 (08:52→19:39)
[2020-11-01 11:00] VITALS: BP 121/76
--- NOTE | 2020-11-01 11:17 | NUR ---
Spoke with Pharmacist Seferino regarding 10/31/20 Vanco Trough level result Addendum: 11/01/20 at 1120 by Aiyana Rooney -Nicole RN Spoke with Marlene Gentile regarding 10/31/2020 Vanco Trough level 20.6 results. Pharmacist stated the Vanco dose was staying the same and is to be given. Patients renal functions is fine and Pharmacist will continue to monitor patients renal functions and vanco trough levels.
[2020-11-01] MEDS: normal saline 1000ml 1,000 ML IV SCH (13:47)
[2020-11-01 15:00] VITALS: BP 120/80
[2020-11-01] MEDS ORDERED: GADOTERATE MEGLUMINE 7.5 MMOL/15 ML VIAL IV ONE (17:38)
--- NOTE | 2020-11-01 17:40 | NUR ---
patient back from MRI
[2020-11-01] MEDS: ipratropium/albuterol 3ml nebule NEB PRN (17:52)
[2020-11-01 18:00] VITALS: BP 131/80
--- NOTE | 2020-11-01 18:02 | NUR ---
Problems reprioritized. Patient report given, questions answered & plan of care reviewed with Bonita ESTRADA.
[2020-11-01 22:00] VITALS: BP 128/74
[2020-11-02 02:00] VITALS: BP 134/70
[2020-11-02] MEDS: VANCOmycin 1250MG/NS 250ml Bag 250 ML IV SCH ×3 (04:50→21:42)
[2020-11-02 06:00] VITALS: BP 124/82
--- NOTE | 2020-11-02 06:03 | NUR ---
Patient in room PCU 3020. I have received report from Bonita ESTRADA and had the opportunity to ask questions and assume patient care.
[2020-11-02 06:27] LABS: BASOPHILS # (AUTO) 0.1 X10'3 (0-0.2); BASOPHILS % (AUTO) 0.4 % (0-1); EOSINOPHILS # (AUTO) 0.2 X10'3 (0-0.9); EOSINOPHILS % (AUTO) 1.1 % (0-6); HEMATOCRIT 35.8 % (42.0-52.0); HEMOGLOBIN 11.5 g/dl (14.0-17.9); LYMPHOCYTES # (AUTO) 2.5 X10'3 (1.1-4.8); LYMPHOCYTES % (AUTO) 15.5 % (21-51); MEAN CORPUSCULAR HEMOGLOBIN 26.3 PG (27.0-31.0); MEAN CORPUSCULAR HGB CONC 32.1 g/dL (33.0-36.5); MEAN CORPUSCULAR VOLUME 81.8 FL (78-98); MEAN PLATELET VOLUME 6.2 FL (7.4-10.4); MONOCYTES % (AUTO) 6.4 % (2-12); NEUTROPHILS # (AUTO) 12.5 X10'3 (1.8-7.7); NEUTROPHILS % (AUTO) 76.6 % (42-75); PLATELET COUNT 656 X10'3 (140-440); RED BLOOD COUNT 4.37 X10'6 (4.70-6.10); RED CELL DISTRIBUTION WIDTH 17.9 % (11.5-14.5); WHITE BLOOD COUNT 16.3 X10'3 (4.5-11.0)
[2020-11-02 07:01] LABS: ALANINE AMINOTRANSFERASE 51 U/L (12-78); ALBUMIN 1.5 G/DL (3.4-5.0); ALBUMIN/GLOBULIN RATIO 0.2 (1.1-1.5); ALKALINE PHOSPHATASE 91 IU/L (46-116); ANION GAP 6 (8-16); ASPARTATE AMINO TRANSFERASE 58 U/L (10-37); BILIRUBIN,TOTAL 0.2 MG/DL (0.1-1.0); BLOOD UREA NITROGEN 10 MG/DL (7-18); BUN/CREATININE RATIO 13.9 (5.4-32.0); CHLORIDE 98 MMOL/L (99-107); CREATININE 0.72 MG/DL (0.60-1.10); GLUCOSE 88 MG/DL (70-104); MAGNESIUM 2.3 MG/DL (1.5-2.4); POTASSIUM 4.8 MMOL/L (3.5-5.1); SODIUM 135 MMOL/L (135-145); TOTAL PROTEIN 9.3 G/DL (6.4-8.2); eGFR > 90 ML/MIN
[2020-11-02] MEDS: K and/or MAG REPLACEMENT MC SCH ×2 (08:00→18:40)
[2020-11-02] MEDS: piperacillin/tazo 3.375gm/50ml 50 ML IV SCH ×2 (08:05→16:16)
[2020-11-02] MEDS: apixaban 5mg tablet PO SCH ×2 (08:05→20:34)
[2020-11-02] MEDS: buprenorphine/naloxone 8MG-2MG SUBlingual film SL SCH ×2 (08:05→20:34)
[2020-11-02] MEDS: lactobacillus rhamnosus 10,000 MMU CELLS/CAPSULE PO SCH ×2 (08:05→20:34)
[2020-11-02] MEDS: HYDROcodone/acetaminophen 10/325mg tab PO PRN ×2 (08:06→13:33)
[2020-11-02] MEDS: mineral oil/petrolatum, white cream 113gm jar TP SCH ×2 (08:08→20:35)
[2020-11-02 09:27] LABS: ANISOCYTOSIS 1+; PLATELET ESTIMATE INCREASED
[2020-11-02 11:00] VITALS: BP 104/76
--- NOTE | 2020-11-02 13:39 | NUR ---
Paged Dr. Melendez to inform that the L Hip MRI results are in the computer PAGER ID: [phone] MESSAGE: [facility] 2019 Scotty Maldonado L Hip MRI results are in the computer. Naty ESTRADA [phone]
[2020-11-02 15:00] VITALS: BP 126/74
[2020-11-02] MEDS: ipratropium/albuterol 3ml nebule NEB PRN (17:37)
--- NOTE | 2020-11-02 18:14 | NUR ---
Problems reprioritized. Patient report given, questions answered & plan of care reviewed with Bonita RN at patient bedside.
[2020-11-02] MEDS: LORazepam 1 MG tablet PO PRN (21:42)
[2020-11-02 21:45] VITALS: BP 124/75
[2020-11-03] MEDS: piperacillin/tazo 3.375gm/50ml 50 ML IV SCH ×3 (00:38→15:49)
[2020-11-03] MEDS: HYDROcodone/acetaminophen 10/325mg tab PO PRN ×4 (00:57→21:59)
[2020-11-03] MEDS: ipratropium/albuterol 3ml nebule NEB PRN (01:15)
[2020-11-03] MEDS ORDERED: acetaminophen 1,000mg/100ml IV 100 ML IV ONE (02:35)
[2020-11-03] MEDS ORDERED: ringers solution, lacted 1,000 ML IV ONE (02:35)
[2020-11-03 03:32] VITALS: BP 125/73
[2020-11-03] MEDS: VANCOmycin 1250MG/NS 250ml Bag 250 ML IV SCH ×3 (05:20→20:07)
--- NOTE | 2020-11-03 05:34 | NUR ---
Pt had temp 100.0, HR 130's-140's, and elevated WBC. Dr. Grajeda notified and Bolus LR and IV Tylenol was received. Temp now 98.3. HR 110's-120's, will continue to monitor.
[2020-11-03 06:00] VITALS: BP 109/69
--- NOTE | 2020-11-03 06:12 | NUR ---
Patient in room PCU 3020. I have received report from Bonita ESTRADA and had the opportunity to ask questions and assume patient care.
[2020-11-03] MEDS: K and/or MAG REPLACEMENT MC SCH ×2 (08:00→20:00)
[2020-11-03] MEDS: mineral oil/petrolatum, white cream 113gm jar TP SCH ×2 (08:41→20:07)
[2020-11-03] MEDS: buprenorphine/naloxone 8MG-2MG SUBlingual film SL SCH ×2 (08:42→20:07)
[2020-11-03] MEDS: apixaban 5mg tablet PO SCH ×2 (08:42→20:07)
[2020-11-03] MEDS: lactobacillus rhamnosus 10,000 MMU CELLS/CAPSULE PO SCH ×2 (08:42→20:07)
--- NOTE | 2020-11-03 10:18 | NUR ---
Spoke with Nitza Young NP Orthopedics, regarding patient. She states a Radiologist needs to aspirate left hip and send specimen for cell count, differential and cultures. She will now go in and assess patient and inform him of care plan..
[2020-11-03 11:00] VITALS: BP 118/79
[2020-11-03] MEDS: normal saline 1000ml 1,000 ML IV SCH (13:07)
[2020-11-03 15:00] VITALS: BP 111/82
[2020-11-03 18:00] VITALS: BP 126/84
--- NOTE | 2020-11-03 18:13 | NUR ---
Patient in room PCU 3020. I have received report from NATALIE Alfonso and had the opportunity to ask questions and assume patient care.
--- NOTE | 2020-11-03 18:13 | NUR ---
Problems reprioritized. Patient report given, questions answered & plan of care reviewed with Bonita ESTRADA.
[2020-11-03 22:00] VITALS: BP 143/83
[2020-11-04] MEDS: piperacillin/tazo 3.375gm/50ml 50 ML IV SCH ×3 (00:01→16:37)
[2020-11-04 02:00] VITALS: BP 116/75
[2020-11-04] MEDS: HYDROcodone/acetaminophen 10/325mg tab PO PRN (03:02)
[2020-11-04] MEDS: VANCOmycin 1250MG/NS 250ml Bag 250 ML IV SCH ×3 (04:25→20:56)
--- NOTE | 2020-11-04 05:03 | NUR ---
[facility] RE 3020A Scotty Maldonado oxygen saturation was 99% on 4L NC I lowered oxygen him to 3L NC will continue to monitor. Patient in no apparent distress.
--- NOTE | 2020-11-04 05:14 | NUR ---
Rechecked oxygen saturation on 3 L sating at 91-92% moved to 3.5 L NC maintaing 95% oxygen saturation Addendum: 11/04/20 at 0516 by Jb Yousif RN Rechecked oxygen saturation on 3 L sating at 91-92% moved to 3.5 L NC maintaining 95% oxygen saturation
--- NOTE | 2020-11-04 06:08 | NUR ---
Problems reprioritized. Patient report given, questions answered & plan of care reviewed with NATALIE Salvador.
--- NOTE | 2020-11-04 06:28 | NUR ---
Patient in room PCU 3020. I have received report from NATALIE Mesa and NATALIE Muhammad orientjuve and had the opportunity to ask questions and assume patient care.
[2020-11-04] MEDS: K and/or MAG REPLACEMENT MC SCH ×2 (08:00→19:23)
[2020-11-04] MEDS: lactobacillus rhamnosus 10,000 MMU CELLS/CAPSULE PO SCH ×2 (08:48→19:40)
[2020-11-04] MEDS: apixaban 5mg tablet PO SCH ×2 (08:48→19:40)
[2020-11-04] MEDS: buprenorphine/naloxone 8MG-2MG SUBlingual film SL SCH ×2 (08:48→19:40)
[2020-11-04] MEDS: mineral oil/petrolatum, white cream 113gm jar TP SCH ×2 (08:50→19:40)
[2020-11-04 11:00] VITALS: BP 113/75
[2020-11-04] MEDS ORDERED: VANCOMYCIN LEVEL IV ONE (12:30)
[2020-11-04] MEDS: ipratropium/albuterol 3ml nebule NEB PRN (13:37)
[2020-11-04 15:00] VITALS: BP 116/69
[2020-11-04 18:00] VITALS: BP 116/73
--- NOTE | 2020-11-04 18:20 | NUR ---
Problems reprioritized. Patient report given, questions answered & plan of care reviewed with NATALIE Mesa.
[2020-11-04] MEDS: LORazepam 1 MG tablet PO PRN (21:55)
[2020-11-04 21:56] VITALS: BP 114/74
[2020-11-05] MEDS: piperacillin/tazo 3.375gm/50ml 50 ML IV SCH ×3 (00:13→15:51)
[2020-11-05 02:00] VITALS: BP 110/67
[2020-11-05] MEDS: VANCOmycin 1250MG/NS 250ml Bag 250 ML IV SCH ×3 (04:31→21:08)
[2020-11-05 05:12] LABS: ALANINE AMINOTRANSFERASE 36 U/L (12-78); ALBUMIN 1.4 G/DL (3.4-5.0); ALBUMIN/GLOBULIN RATIO 0.2 (1.1-1.5); ALKALINE PHOSPHATASE 83 IU/L (46-116); ANION GAP 1 (8-16); ASPARTATE AMINO TRANSFERASE 26 U/L (10-37); BILIRUBIN,TOTAL 0.2 MG/DL (0.1-1.0); BLOOD UREA NITROGEN 13 MG/DL (7-18); BUN/CREATININE RATIO 18.6 (5.4-32.0); CALCIUM 9.9 MG/DL (8.5-10.1); CHLORIDE 98 MMOL/L (99-107); GLUCOSE 99 MG/DL (70-104); SODIUM 132 MMOL/L (135-145); TOTAL CARBON DIOXIDE 32.7 MMOL/L (24-32); TOTAL PROTEIN 8.7 G/DL (6.4-8.2); eGFR > 90 ML/MIN
--- NOTE | 2020-11-05 06:22 | NUR ---
Patient in room PCU 3020. I have received report from Bonita ESTRADA and had the opportunity to ask questions and assume patient care.
[2020-11-05 07:00] VITALS: BP 118/75
[2020-11-05] MEDS: K and/or MAG REPLACEMENT MC SCH ×2 (08:00→20:00)
[2020-11-05] MEDS: lactobacillus rhamnosus 10,000 MMU CELLS/CAPSULE PO SCH ×2 (09:12→19:17)
[2020-11-05] MEDS: apixaban 5mg tablet PO SCH ×2 (09:12→19:17)
[2020-11-05] MEDS: HYDROcodone/acetaminophen 10/325mg tab PO PRN (09:13)
[2020-11-05] MEDS: buprenorphine/naloxone 8MG-2MG SUBlingual film SL SCH ×2 (09:13→19:17)
[2020-11-05] MEDS: mineral oil/petrolatum, white cream 113gm jar TP SCH ×2 (09:21→19:17)
[2020-11-05 11:00] VITALS: BP 106/71
[2020-11-05] MEDS ORDERED: VANCOMYCIN LEVEL IV ONE (12:30)
[2020-11-05 15:00] VITALS: BP 101/69
[2020-11-05] MEDS: normal saline 1000ml 1,000 ML IV SCH (15:51)
[2020-11-05 18:00] VITALS: BP 116/70
--- NOTE | 2020-11-05 18:43 | NUR ---
Problems reprioritized. Patient report given, questions answered & plan of care reviewed with Bonita ESTRADA.
[2020-11-05] MEDS: ipratropium/albuterol 3ml nebule NEB PRN (20:16)
[2020-11-05 21:43] VITALS: BP 116/71
[2020-11-06] MEDS: piperacillin/tazo 3.375gm/50ml 50 ML IV SCH ×3 (00:21→16:11)
[2020-11-06 01:30] VITALS: BP 110/62
[2020-11-06] MEDS: LORazepam 1 MG tablet PO PRN (01:33)
[2020-11-06] MEDS: VANCOmycin 1250MG/NS 250ml Bag 250 ML IV SCH ×3 (05:08→20:45)
[2020-11-06 06:08] LABS: ALANINE AMINOTRANSFERASE 30 U/L (12-78); ALBUMIN 1.5 G/DL (3.4-5.0); ALBUMIN/GLOBULIN RATIO 0.2 (1.1-1.5); ALKALINE PHOSPHATASE 81 IU/L (46-116); ANION GAP 6 (8-16); ASPARTATE AMINO TRANSFERASE 26 U/L (10-37); BILIRUBIN,TOTAL 0.2 MG/DL (0.1-1.0); BLOOD UREA NITROGEN 16 MG/DL (7-18); BUN/CREATININE RATIO 20.8 (5.4-32.0); CALCIUM 9.5 MG/DL (8.5-10.1); CHLORIDE 101 MMOL/L (99-107); CREATININE 0.77 MG/DL (0.60-1.10); GLUCOSE 91 MG/DL (70-104); POTASSIUM 4.3 MMOL/L (3.5-5.1); SODIUM 136 MMOL/L (135-145); TOTAL CARBON DIOXIDE 29.2 MMOL/L (24-32); TOTAL PROTEIN 8.4 G/DL (6.4-8.2); eGFR > 90 ML/MIN
[2020-11-06 07:09] VITALS: BP 110/62
[2020-11-06] MEDS: K and/or MAG REPLACEMENT MC SCH ×2 (08:00→19:58)
[2020-11-06] MEDS: mineral oil/petrolatum, white cream 113gm jar TP SCH ×2 (08:32→19:59)
[2020-11-06] MEDS: buprenorphine/naloxone 8MG-2MG SUBlingual film SL SCH ×2 (08:33→19:59)
[2020-11-06] MEDS: lactobacillus rhamnosus 10,000 MMU CELLS/CAPSULE PO SCH ×2 (08:33→19:58)
[2020-11-06] MEDS: apixaban 5mg tablet PO SCH ×2 (08:33→20:00)
[2020-11-06 11:00] VITALS: BP 116/71
[2020-11-06] MEDS ORDERED: VANCOMYCIN LEVEL IV ONE ×2 (12:30→20:30)
[2020-11-06] MEDS: acetaminophen 325mg tablet PO PRN (13:27)
--- NOTE | 2020-11-06 15:19 | NUR ---
Reassessment: Pt PO 100% avg regular diet w/ double proteins TIDWM meeting needs. LBM 11/05. No nutrition intervention at this time. Will continue to monitor. Recommendations: 1) Continue regular diet 2) Double eggs WB, double meat BIDLD 3) Routine bowel care 4) Scaled weight this admit; weekly scaled weights thereafter Addendum: 11/06/20 at [address] Amended: Links added.
[2020-11-06] MEDS: HYDROcodone/acetaminophen 10/325mg tab PO PRN (16:36)
[2020-11-06 16:45] LABS: BASOPHILS # (AUTO) 0.1 X10'3 (0-0.2); EOSINOPHILS # (AUTO) 0.3 X10'3 (0-0.9); HEMATOCRIT 29.2 % (42.0-52.0); NEUTROPHILS % (AUTO) 66.5 % (42-75)
[2020-11-06 16:47] LABS: EOSINOPHILS % (AUTO) 2.1 % (0-6); HEMOGLOBIN 9.4 g/dl (14.0-17.9); LYMPHOCYTES # (AUTO) 2.8 X10'3 (1.1-4.8); LYMPHOCYTES % (AUTO) 22.4 % (21-51); MEAN CORPUSCULAR HEMOGLOBIN 26.1 PG (27.0-31.0); MEAN CORPUSCULAR HGB CONC 32.3 g/dL (33.0-36.5); MEAN CORPUSCULAR VOLUME 80.7 FL (78-98); NEUTROPHILS # (AUTO) 8.4 X10'3 (1.8-7.7); PLATELET COUNT 626 X10'3 (140-440); RED BLOOD COUNT 3.61 X10'6 (4.70-6.10); RED CELL DISTRIBUTION WIDTH 17.7 % (11.5-14.5); WHITE BLOOD COUNT 12.7 X10'3 (4.5-11.0)
[2020-11-06 17:19] VITALS: BP 116/74
--- NOTE | 2020-11-06 17:31 | NUR ---
Patient ate her lunch late at 1500 and now has had a second blood sugar over 160. Due to the timing of the patients lunch and blood sugar check I will restart the blood sugar protocol to ensure that the patient does meet the protocol before administering insulin. Addendum: 11/06/20 at 1813 by Jennie Sierra RN wrong patient! please disregard this note
--- NOTE | 2020-11-06 18:14 | NUR ---
Problems reprioritized. Patient report given, questions answered & plan of care reviewed with Jb ESTRADA.
--- NOTE | 2020-11-06 18:19 | NUR ---
Patient in room PCU 3020. I have received report from NATALIE Schneider and had the opportunity to ask questions and assume patient care.
--- NOTE | 2020-11-06 20:43 | NUR ---
Pt Malcom troph was 31.1 MD Grajeda called gave telephone order to hold vancomycin
[2020-11-06 22:00] VITALS: BP 105/80
[2020-11-07] VITALS (11 sets, daily range): BP systolic 104–126; BP diastolic 68–81
[2020-11-07] MEDS: piperacillin/tazo 3.375gm/50ml 50 ML IV SCH ×3 (00:40→16:41)
[2020-11-07 04:06] LABS: BASOPHILS # (AUTO) 0.1 X10'3 (0-0.2); BASOPHILS % (AUTO) 0.8 % (0-1); EOSINOPHILS # (AUTO) 0.3 X10'3 (0-0.9); HEMOGLOBIN 9.4 g/dl (14.0-17.9); LYMPHOCYTES # (AUTO) 2.5 X10'3 (1.1-4.8); MONOCYTES # (AUTO) 0.9 X10'3 (0-0.9)
[2020-11-07 04:08] LABS: EOSINOPHILS % (AUTO) 2.1 % (0-6); HEMATOCRIT 29.6 % (42.0-52.0); LYMPHOCYTES % (AUTO) 20.6 % (21-51); MEAN CORPUSCULAR HEMOGLOBIN 25.5 PG (27.0-31.0); MEAN CORPUSCULAR HGB CONC 31.8 g/dL (33.0-36.5); MEAN CORPUSCULAR VOLUME 80.3 FL (78-98); MONOCYTES % (AUTO) 7.5 % (2-12); NEUTROPHILS # (AUTO) 8.5 X10'3 (1.8-7.7); PLATELET COUNT 648 X10'3 (140-440); RED BLOOD COUNT 3.68 X10'6 (4.70-6.10); RED CELL DISTRIBUTION WIDTH 17.5 % (11.5-14.5); WHITE BLOOD COUNT 12.3 X10'3 (4.5-11.0)
[2020-11-07 04:11] LABS: CHLORIDE 103 MMOL/L (99-107); GLUCOSE 93 MG/DL (70-104); POTASSIUM 4.2 MMOL/L (3.5-5.1); SODIUM 136 MMOL/L (135-145); TOTAL CARBON DIOXIDE 34.3 MMOL/L (24-32)
[2020-11-07 04:12] LABS: ALANINE AMINOTRANSFERASE 32 U/L (12-78); ALBUMIN 1.6 G/DL (3.4-5.0); ALBUMIN/GLOBULIN RATIO 0.2 (1.1-1.5); ALKALINE PHOSPHATASE 91 IU/L (46-116); ANION GAP -1 (8-16); ASPARTATE AMINO TRANSFERASE 20 U/L (10-37); BILIRUBIN,TOTAL 0.1 MG/DL (0.1-1.0); BLOOD UREA NITROGEN 17 MG/DL (7-18); BUN/CREATININE RATIO 22.1 (5.4-32.0); CALCIUM 9.7 MG/DL (8.5-10.1); CREATININE 0.77 MG/DL (0.60-1.10); TOTAL PROTEIN 8.5 G/DL (6.4-8.2); eGFR > 90 ML/MIN
[2020-11-07] MEDS: VANCOmycin 1250MG/NS 250ml Bag 250 ML IV SCH (05:00)
--- NOTE | 2020-11-07 06:03 | NUR ---
Problems reprioritized. Patient report given, questions answered & plan of care reviewed with NATALIE CAMPOS.
[2020-11-07] MEDS: K and/or MAG REPLACEMENT MC SCH ×2 (07:09→20:00)
[2020-11-07] MEDS: mineral oil/petrolatum, white cream 113gm jar TP SCH ×2 (07:10→20:43)
[2020-11-07] MEDS: buprenorphine/naloxone 8MG-2MG SUBlingual film SL SCH ×2 (07:10→20:42)
[2020-11-07] MEDS: lactobacillus rhamnosus 10,000 MMU CELLS/CAPSULE PO SCH ×2 (07:10→20:42)
[2020-11-07] MEDS: apixaban 5mg tablet PO SCH ×2 (08:00→20:42)
[2020-11-07] MEDS: vancomycin/NS 1 GM ADD-VANTAGE 250 ML X 1 DOSE IV SCH ×3 (10:28→23:28)
--- NOTE | 2020-11-07 11:40 | NUR ---
PAGER ID: [phone] MESSAGE: Rm 3020, White. Pt has red rash on his back, would you like to order some Benadryl, please advise, Jennie [phone]
[2020-11-07] MEDS ORDERED: midazolam 1 mg/ML 2ml injection ONE (11:48)
[2020-11-07] MEDS ORDERED: fentaNYL/PF 50MCG/1 ML 2ML syringe ONE (11:48)
--- NOTE | 2020-11-07 12:47 | NUR ---
PAGER ID: [phone] MESSAGE: Rm 3020, White, Pt has red dry flaky rash on his back, would you like to order Benadryl and some cream? Please advise Jennie [phone]
[2020-11-07] MEDS: normal saline 1000ml 1,000 ML IV SCH (12:48)
--- NOTE | 2020-11-07 14:49 | NUR ---
PAGER ID: [phone] MESSAGE: Rm 3020 White. Pts rash on back is not going away, red and hive looking, can I please have cream or something for this pt, also he is on [place] [phone]
[2020-11-07] MEDS: HYDROcodone/acetaminophen 10/325mg tab PO PRN (15:34)
--- NOTE | 2020-11-07 16:48 | NUR ---
PAGER ID: [phone] MESSAGE: 3020, White. Can I have an order for Benadryl, pt has itchy, red rash on his back and arm pit. Jennie [phone]
[2020-11-07] MEDS: diphenhydrAMINE 50 mg/ml inj IV PRN (17:14)
--- NOTE | 2020-11-07 18:10 | NUR ---
Problems reprioritized. Patient report given, questions answered & plan of care reviewed with Martina ESTRADA.
[2020-11-08 03:00] VITALS: BP 109/57
[2020-11-08] MEDS ORDERED: VANCOMYCIN LEVEL IV ONE (07:30)
[2020-11-08] MEDS: vancomycin/NS 1 GM ADD-VANTAGE 250 ML X 1 DOSE IV SCH ×3 (07:43→23:51)
[2020-11-08] MEDS: lactobacillus rhamnosus 10,000 MMU CELLS/CAPSULE PO SCH ×2 (07:44→21:09)
[2020-11-08] MEDS: diphenhydrAMINE 50 mg/ml inj IV PRN ×2 (07:44→13:55)
[2020-11-08] MEDS: apixaban 5mg tablet PO SCH ×2 (07:44→21:09)
[2020-11-08] MEDS: buprenorphine/naloxone 8MG-2MG SUBlingual film SL SCH ×2 (07:44→21:09)
[2020-11-08] MEDS: piperacillin/tazo 3.375gm/50ml 50 ML IV SCH ×4 (07:44→23:51)
[2020-11-08 07:45] LABS: BASOPHILS # (AUTO) 0.1 X10'3 (0-0.2); BASOPHILS % (AUTO) 0.9 % (0-1); EOSINOPHILS # (AUTO) 0.1 X10'3 (0-0.9); EOSINOPHILS % (AUTO) 1.5 % (0-6); HEMATOCRIT 32.8 % (42.0-52.0); HEMOGLOBIN 10.6 g/dl (14.0-17.9); LYMPHOCYTES # (AUTO) 1.6 X10'3 (1.1-4.8); LYMPHOCYTES % (AUTO) 18.2 % (21-51); MEAN CORPUSCULAR HEMOGLOBIN 26.3 PG (27.0-31.0); MEAN CORPUSCULAR HGB CONC 32.4 g/dL (33.0-36.5); MEAN PLATELET VOLUME 5.9 FL (7.4-10.4); MONOCYTES # (AUTO) 1.2 X10'3 (0-0.9); MONOCYTES % (AUTO) 13.4 % (2-12); NEUTROPHILS # (AUTO) 5.8 X10'3 (1.8-7.7); PLATELET COUNT 516 X10'3 (140-440); RED BLOOD COUNT 4.04 X10'6 (4.70-6.10); RED CELL DISTRIBUTION WIDTH 18.1 % (11.5-14.5); WHITE BLOOD COUNT 8.8 X10'3 (4.5-11.0)
[2020-11-08] MEDS: K and/or MAG REPLACEMENT MC SCH ×2 (08:00→20:00)
[2020-11-08] MEDS: mineral oil/petrolatum, white cream 113gm jar TP SCH ×2 (08:04→20:00)
[2020-11-08 08:10] LABS: ALANINE AMINOTRANSFERASE 27 U/L (12-78); ALBUMIN 1.5 G/DL (3.4-5.0); ALBUMIN/GLOBULIN RATIO 0.2 (1.1-1.5); ALKALINE PHOSPHATASE 86 IU/L (46-116); ANION GAP 3 (8-16); ASPARTATE AMINO TRANSFERASE 16 U/L (10-37); BILIRUBIN,TOTAL 0.2 MG/DL (0.1-1.0); BLOOD UREA NITROGEN 15 MG/DL (7-18); BUN/CREATININE RATIO 20.5 (5.4-32.0); CHLORIDE 101 MMOL/L (99-107); CREATININE 0.73 MG/DL (0.60-1.10); GLUCOSE 96 MG/DL (70-104); SODIUM 136 MMOL/L (135-145); TOTAL CARBON DIOXIDE 32.3 MMOL/L (24-32); TOTAL PROTEIN 8.1 G/DL (6.4-8.2); eGFR > 90 ML/MIN
[2020-11-08 08:13] LABS: VANCOMYCIN,TROUGH 20.6 UG/ML (6.0-14.0)
--- NOTE | 2020-11-08 08:23 | NUR ---
PAGER ID: [phone] MESSAGE: Rm 3020, White. FYI: Critical Vanco trough was 20.6, pharmacy said to continue with the infusion being administered, Jennie 44
[2020-11-08] MEDS: HYDROcodone/acetaminophen 10/325mg tab PO PRN ×2 (13:55→22:30)
[2020-11-08 19:00] VITALS: BP 107/66
[2020-11-08 23:00] VITALS: BP 127/72
[2020-11-09 03:00] VITALS: BP 109/64
[2020-11-09] MEDS: apixaban 5mg tablet PO SCH (06:51)
--- NOTE | 2020-11-09 07:00 | NUR ---
Spoke to Luis A in [facility] states patient is not going to be done until late afternoon. Luis A is aware that patient received Eliquis on noc shift but I held for this morning. Luis A will speak to Dr Lal and advise if he will still take patient for procedure today
--- NOTE | 2020-11-09 07:01 | NUR ---
Spoke to pharmacist regarding patient is on Suboxone and [place] and has been receiving both. Pharmacist putting hold on Suboxone until clarified with
[2020-11-09 07:04] VITALS: BP 109/71
--- NOTE | 2020-11-09 07:04 | NUR ---
PAGER ID: [phone] MESSAGE: Lizabeth Alonso [phone] Re: Joel [phone] please call re: patient taking suboxone and receiving [place] as well please call patient painful want to clarify order.
--- NOTE | 2020-11-09 07:30 | NUR ---
Dr Owen aware patient on Suboxone and is ok with patient also receiving Minerva prn
[2020-11-09] MEDS: K and/or MAG REPLACEMENT MC SCH ×2 (08:00→19:38)
[2020-11-09] MEDS: mineral oil/petrolatum, white cream 113gm jar TP SCH ×2 (08:00→19:39)
[2020-11-09] MEDS: lactobacillus rhamnosus 10,000 MMU CELLS/CAPSULE PO SCH ×2 (08:00→19:38)
--- NOTE | 2020-11-09 08:25 | NUR ---
PAGER ID: [phone] MESSAGE: Lizabeth Celeste [phone] Please call re: Joel [phone] and pain medications
[2020-11-09] MEDS: buprenorphine/naloxone 8MG-2MG SUBlingual film SL SCH ×2 (08:39→19:38)
[2020-11-09] MEDS: piperacillin/tazo 3.375gm/50ml 50 ML IV SCH ×2 (08:40→15:44)
[2020-11-09] MEDS: HYDROcodone/acetaminophen 10/325mg tab PO PRN ×2 (08:40→13:33)
[2020-11-09] MEDS: vancomycin/NS 1 GM ADD-VANTAGE 250 ML X 1 DOSE IV SCH ×2 (08:40→15:44)
[2020-11-09 11:00] VITALS: BP 109/65
--- NOTE | 2020-11-09 11:18 | NUR ---
No labs drawn today
[2020-11-09 11:28] LABS: ALANINE AMINOTRANSFERASE 20 U/L (12-78); ALBUMIN 1.7 G/DL (3.4-5.0); ALBUMIN/GLOBULIN RATIO 0.2 (1.1-1.5); ALKALINE PHOSPHATASE 85 IU/L (46-116); ANION GAP 4 (8-16); ASPARTATE AMINO TRANSFERASE 19 U/L (10-37); BILIRUBIN,TOTAL 0.2 MG/DL (0.1-1.0); BLOOD UREA NITROGEN 14 MG/DL (7-18); BUN/CREATININE RATIO 18.2 (5.4-32.0); CALCIUM 9.5 MG/DL (8.5-10.1); CHLORIDE 102 MMOL/L (99-107); CREATININE 0.77 MG/DL (0.60-1.10); GLUCOSE 98 MG/DL (70-104); POTASSIUM 4.5 MMOL/L (3.5-5.1); SODIUM 139 MMOL/L (135-145); TOTAL CARBON DIOXIDE 33.1 MMOL/L (24-32); TOTAL PROTEIN 8.6 G/DL (6.4-8.2); eGFR > 90 ML/MIN
--- NOTE | 2020-11-09 12:40 | NUR ---
Spoke with Harvinder in [place] he will call me back re: status on patient of NPO
[2020-11-09] MEDS ORDERED: apixaban 5mg tablet PO ONE (13:00)
[2020-11-09] MEDS: normal saline 1000ml 1,000 ML IV SCH ×2 (13:10→13:55)
[2020-11-09] MEDS ORDERED: iohexol 300mg/ml 100ml inj. ONE (13:15)
--- NOTE | 2020-11-09 15:19 | NUR ---
PAGER ID: [phone] MESSAGE: Get[place] [phone] Re: Joel [phone] Bull with CATHIE @ [phone] Addendum: 11/09/20 at 1524 by Lizabeth Ott RN Correction Message given to Rose Mary Lamar she will call Dr Bull.
[2020-11-09] MEDS ORDERED: heparin 10,000 units/1 ML INJ IV ONE (16:10)
[2020-11-09] MEDS: heparin 25,000 UNIT/250ml bag 250 ML IV SCH (17:16)
[2020-11-09 18:00] VITALS: BP 127/74
--- NOTE | 2020-11-09 18:38 | NUR ---
Patient in room PCU 3020. I have received report from Lizabeth ESTRADA and had the opportunity to ask questions and assume patient care.
--- NOTE | 2020-11-09 18:44 | NUR ---
Problems reprioritized. Patient report given, questions answered & plan of care reviewed with Naty ESTRADA.
[2020-11-09 22:50] VITALS: BP 124/68
[2020-11-10] VITALS (7 sets, daily range): BP systolic 105–120; BP diastolic 61–75
[2020-11-10] MEDS: vancomycin/NS 1 GM ADD-VANTAGE 250 ML X 1 DOSE IV SCH ×3 (00:20→15:29)
[2020-11-10] MEDS: piperacillin/tazo 3.375gm/50ml 50 ML IV SCH ×3 (01:40→15:28)
--- NOTE | 2020-11-10 02:10 | NUR ---
Heparin drip turned off per MD orders.
[2020-11-10 04:42] LABS: BASOPHILS # (AUTO) 0.1 X10'3 (0-0.2); BASOPHILS % (AUTO) 1.2 % (0-1); EOSINOPHILS # (AUTO) 0.2 X10'3 (0-0.9); EOSINOPHILS % (AUTO) 2.6 % (0-6); HEMATOCRIT 25.4 % (42.0-52.0); HEMOGLOBIN 8.2 g/dl (14.0-17.9); LYMPHOCYTES # (AUTO) 1.9 X10'3 (1.1-4.8); LYMPHOCYTES % (AUTO) 22.5 % (21-51); MEAN CORPUSCULAR HEMOGLOBIN 25.8 PG (27.0-31.0); MEAN CORPUSCULAR HGB CONC 32.3 g/dL (33.0-36.5); MEAN CORPUSCULAR VOLUME 79.8 FL (78-98); MEAN PLATELET VOLUME 6.1 FL (7.4-10.4); MONOCYTES # (AUTO) 0.8 X10'3 (0-0.9); MONOCYTES % (AUTO) 9.5 % (2-12); NEUTROPHILS # (AUTO) 5.4 X10'3 (1.8-7.7); NEUTROPHILS % (AUTO) 64.2 % (42-75); PLATELET COUNT 561 X10'3 (140-440); RED BLOOD COUNT 3.18 X10'6 (4.70-6.10); RED CELL DISTRIBUTION WIDTH 17.5 % (11.5-14.5); WHITE BLOOD COUNT 8.5 X10'3 (4.5-11.0)
[2020-11-10 04:51] LABS: ALANINE AMINOTRANSFERASE 20 U/L (12-78); ALBUMIN 1.5 G/DL (3.4-5.0); ALBUMIN/GLOBULIN RATIO 0.2 (1.1-1.5); ALKALINE PHOSPHATASE 79 IU/L (46-116); ANION GAP 3 (8-16); ASPARTATE AMINO TRANSFERASE 14 U/L (10-37); BILIRUBIN,TOTAL 0.1 MG/DL (0.1-1.0); BLOOD UREA NITROGEN 14 MG/DL (7-18); BUN/CREATININE RATIO 18.7 (5.4-32.0); CHLORIDE 103 MMOL/L (99-107); CREATININE 0.75 MG/DL (0.60-1.10); GLUCOSE 93 MG/DL (70-104); POTASSIUM 3.8 MMOL/L (3.5-5.1); SODIUM 138 MMOL/L (135-145); TOTAL CARBON DIOXIDE 31.8 MMOL/L (24-32); TOTAL PROTEIN 7.7 G/DL (6.4-8.2); eGFR > 90 ML/MIN
--- NOTE | 2020-11-10 06:00 | NUR ---
Patient in room PCU 3020. I have received report from TRISTON ESTRADA and had the opportunity to ask questions and assume patient care.
--- NOTE | 2020-11-10 06:25 | NUR ---
Problems reprioritized. Patient report given, questions answered & plan of care reviewed with Mariana RN.
[2020-11-10] MEDS: K and/or MAG REPLACEMENT MC SCH ×2 (08:00→20:00)
[2020-11-10] MEDS: mineral oil/petrolatum, white cream 113gm jar TP SCH ×2 (08:19→20:33)
[2020-11-10] MEDS: lactobacillus rhamnosus 10,000 MMU CELLS/CAPSULE PO SCH ×2 (08:19→20:32)
[2020-11-10] MEDS: buprenorphine/naloxone 8MG-2MG SUBlingual film SL SCH ×2 (08:19→20:32)
[2020-11-10] MEDS ORDERED: IOPAMIDOL 10 ML VIAL IT ONE (09:30)
--- NOTE | 2020-11-10 11:14 | NUR ---
PAGER ID: [phone] MESSAGE: [id number] LINDEN CAMPO DOES THE PT NEED TO BE CONNECTED BACK TO HEPARIN? HANNA [phone]
[2020-11-10 12:34] LABS: GLUCOSE,SYNOVIAL FLUID 0 MG/DL
[2020-11-10] MEDS: HYDROcodone/acetaminophen 10/325mg tab PO PRN ×2 (12:42→16:33)
[2020-11-10 12:44] LABS: APPEARANCE,SYNOVIAL FLUID HAZY; COLOR,SYNOVIAL FLUID OTHER; SYN RBC 14 /CU MM (0); SYN WBC 2 /CU MM (0-200)
[2020-11-10] MEDS: heparin 25,000 UNIT/250ml bag 250 ML IV SCH (15:19)
--- NOTE | 2020-11-10 19:19 | NUR ---
PAGER ID: [phone] MESSAGE: Room 3020 Joel is c/o itching d/t heparin drip and requests Benadryl as well as something more effective for pain. Pt is on suboxone and hx ivdu but had chest tube placed today. IV pain medicine would be appreciated. Bonita [phone] Addendum: 11/10/20 at 1921 by Bonita CANELA RN Per Dr. Muñoz, benadryl is ok 25mg Oral X1 Now.
[2020-11-10] MEDS ORDERED: iohexol 350MG/ML 100ml bottle IV ONE (19:25)
[2020-11-10] MEDS ORDERED: diphenhydrAMINE 25mg capsule PO ONE (19:25)
[2020-11-11] MEDS: heparin 10,000 units/1 ML INJ IV PRN ×3 (00:34→20:19)
[2020-11-11] MEDS: vancomycin/NS 1 GM ADD-VANTAGE 250 ML X 1 DOSE IV SCH ×4 (00:48→23:48)
[2020-11-11] MEDS: piperacillin/tazo 3.375gm/50ml 50 ML IV SCH ×4 (00:48→23:48)
[2020-11-11 02:00] VITALS: BP 108/65
[2020-11-11 04:44] LABS: BASOPHILS # (AUTO) 0.1 X10'3 (0-0.2); BASOPHILS % (AUTO) 0.8 % (0-1); EOSINOPHILS # (AUTO) 0.2 X10'3 (0-0.9); HEMATOCRIT 25.8 % (42.0-52.0); HEMOGLOBIN 8.5 g/dl (14.0-17.9); LYMPHOCYTES # (AUTO) 1.8 X10'3 (1.1-4.8); LYMPHOCYTES % (AUTO) 22.1 % (21-51); MEAN CORPUSCULAR HEMOGLOBIN 26.2 PG (27.0-31.0); MEAN CORPUSCULAR HGB CONC 32.9 g/dL (33.0-36.5); MEAN CORPUSCULAR VOLUME 79.7 FL (78-98); MEAN PLATELET VOLUME 5.9 FL (7.4-10.4); MONOCYTES # (AUTO) 1.2 X10'3 (0-0.9); MONOCYTES % (AUTO) 15.4 % (2-12); NEUTROPHILS # (AUTO) 4.7 X10'3 (1.8-7.7); NEUTROPHILS % (AUTO) 58.7 % (42-75); PLATELET COUNT 535 X10'3 (140-440); RED BLOOD COUNT 3.24 X10'6 (4.70-6.10); RED CELL DISTRIBUTION WIDTH 17.5 % (11.5-14.5); WHITE BLOOD COUNT 8.1 X10'3 (4.5-11.0)
[2020-11-11] MEDS: HYDROcodone/acetaminophen 10/325mg tab PO PRN ×3 (04:54→15:35)
[2020-11-11 04:56] LABS: % IRON SATURATION 11 % (11-46); IRON 20 UG/DL (53-167); TOTAL IRON BINDING CAPACITY 186 UG/DL (259-388)
[2020-11-11 05:19] LABS: TOTAL CELLS COUNTED 100
[2020-11-11 05:20] LABS: ANISOCYTOSIS 1+; MICROCYTOSIS 1+; PLATELET ESTIMATE INCREASED
[2020-11-11 05:21] LABS: ALANINE AMINOTRANSFERASE 15 U/L (12-78); ALBUMIN 1.4 G/DL (3.4-5.0); ALBUMIN/GLOBULIN RATIO 0.2 (1.1-1.5); ALKALINE PHOSPHATASE 71 IU/L (46-116); ANION GAP 6 (8-16); ASPARTATE AMINO TRANSFERASE 20 U/L (10-37); BILIRUBIN,TOTAL 0.2 MG/DL (0.1-1.0); BLOOD UREA NITROGEN 13 MG/DL (7-18); BUN/CREATININE RATIO 16.9 (5.4-32.0); CHLORIDE 101 MMOL/L (99-107); CREATININE 0.77 MG/DL (0.60-1.10); GLUCOSE 105 MG/DL (70-104); POTASSIUM 3.8 MMOL/L (3.5-5.1); SODIUM 137 MMOL/L (135-145); TOTAL CARBON DIOXIDE 29.6 MMOL/L (24-32); TOTAL PROTEIN 7.3 G/DL (6.4-8.2); eGFR > 90 ML/MIN
--- NOTE | 2020-11-11 06:00 | NUR ---
Patient in room PCU 3020. I have received report from TARAH ESTRADA and had the opportunity to ask questions and assume patient care.
[2020-11-11] MEDS: heparin 25,000 UNIT/250ml bag 250 ML IV SCH ×2 (07:22→23:50)
[2020-11-11 07:34] VITALS: BP 119/67
[2020-11-11] MEDS: K and/or MAG REPLACEMENT MC SCH ×2 (08:00→20:00)
--- NOTE | 2020-11-11 08:03 | NUR ---
PAGER ID: [phone] MESSAGE: [id number] LINDEN CAMPO IS GOING TO SURGERY AT 1330 TODAY AND HE IS ON A HEPARIN DRIP, DO YOU WANT IT SHUT OFF NOW? HANNA [phone]
[2020-11-11] MEDS: buprenorphine/naloxone 8MG-2MG SUBlingual film SL SCH ×2 (08:14→19:22)
[2020-11-11] MEDS: lactobacillus rhamnosus 10,000 MMU CELLS/CAPSULE PO SCH ×2 (08:14→19:21)
[2020-11-11] MEDS: mineral oil/petrolatum, white cream 113gm jar TP SCH ×2 (08:15→19:23)
[2020-11-11] MEDS: ringers solution, lacted 1,000 ML IV SCH (11:38)
[2020-11-11] MEDS ORDERED: famotidine/PF 10 mg/ml inj IV ONE (12:30)
[2020-11-11] MEDS: normal saline 1000ml 1,000 ML IV SCH (12:56)
[2020-11-11 14:41] VITALS: BP 109/67
[2020-11-11 15:43] VITALS: BP 104/60
[2020-11-11 18:00] VITALS: BP 105/62
[2020-11-11] MEDS: diphenhydrAMINE 50 mg/ml inj IV PRN (19:21)
[2020-11-11 22:00] VITALS: BP 107/67
[2020-11-12 02:00] VITALS: BP 119/76
[2020-11-12] MEDS: diphenhydrAMINE 50 mg/ml inj IV PRN ×3 (02:24→19:44)
[2020-11-12] MEDS: HYDROcodone/acetaminophen 10/325mg tab PO PRN ×2 (02:24→10:14)
[2020-11-12 02:46] LABS: BASOPHILS # (AUTO) 0.1 X10'3 (0-0.2); BASOPHILS % (AUTO) 1.4 % (0-1); EOSINOPHILS # (AUTO) 0.2 X10'3 (0-0.9); EOSINOPHILS % (AUTO) 3.3 % (0-6); LYMPHOCYTES # (AUTO) 1.2 X10'3 (1.1-4.8); LYMPHOCYTES % (AUTO) 20.8 % (21-51); MEAN CORPUSCULAR HEMOGLOBIN 25.4 PG (27.0-31.0); MEAN CORPUSCULAR HGB CONC 32.1 g/dL (33.0-36.5); MEAN CORPUSCULAR VOLUME 79.1 FL (78-98); MEAN PLATELET VOLUME 5.8 FL (7.4-10.4); MONOCYTES # (AUTO) 1.1 X10'3 (0-0.9); MONOCYTES % (AUTO) 18.4 % (2-12); NEUTROPHILS # (AUTO) 3.3 X10'3 (1.8-7.7); NEUTROPHILS % (AUTO) 56.1 % (42-75); PLATELET COUNT 494 X10'3 (140-440); RED BLOOD COUNT 3.16 X10'6 (4.70-6.10); RED CELL DISTRIBUTION WIDTH 17.5 % (11.5-14.5); WHITE BLOOD COUNT 5.9 X10'3 (4.5-11.0)
[2020-11-12 02:52] LABS: ALBUMIN 1.5 G/DL (3.4-5.0); ALBUMIN/GLOBULIN RATIO 0.3 (1.1-1.5); ANION GAP 5 (8-16); ASPARTATE AMINO TRANSFERASE 19 U/L (10-37); BILIRUBIN,TOTAL 0.1 MG/DL (0.1-1.0); BLOOD UREA NITROGEN 12 MG/DL (7-18); CALCIUM 8.9 MG/DL (8.5-10.1); CHLORIDE 101 MMOL/L (99-107); GLUCOSE 105 MG/DL (70-104); POTASSIUM 4.1 MMOL/L (3.5-5.1); SODIUM 138 MMOL/L (135-145); TOTAL CARBON DIOXIDE 32.1 MMOL/L (24-32); TOTAL PROTEIN 7.4 G/DL (6.4-8.2); eGFR > 90 ML/MIN
[2020-11-12 02:53] LABS: ALANINE AMINOTRANSFERASE 16 U/L (12-78); ALKALINE PHOSPHATASE 69 IU/L (46-116)
[2020-11-12 06:00] VITALS: BP 111/68
--- NOTE | 2020-11-12 06:00 | NUR ---
Patient in room PCU 3020. I have received report from TARAH ESTRADA and had the opportunity to ask questions and assume patient care.
[2020-11-12 06:55] LABS: ANISOCYTOSIS 1+; PLATELET ESTIMATE INCREASED; TOTAL CELLS COUNTED 100
[2020-11-12 06:56] LABS: MICROCYTOSIS 1+
[2020-11-12] MEDS ORDERED: VANCOMYCIN LEVEL IV ONE (07:30)
[2020-11-12] MEDS: mineral oil/petrolatum, white cream 113gm jar TP SCH ×2 (08:00→20:00)
[2020-11-12] MEDS: K and/or MAG REPLACEMENT MC SCH ×2 (08:00→20:00)
[2020-11-12] MEDS: buprenorphine/naloxone 8MG-2MG SUBlingual film SL SCH ×2 (08:08→19:44)
[2020-11-12] MEDS: lactobacillus rhamnosus 10,000 MMU CELLS/CAPSULE PO SCH ×2 (08:09→19:44)
[2020-11-12] MEDS: vancomycin/NS 1 GM ADD-VANTAGE 250 ML X 1 DOSE IV SCH ×3 (08:10→23:51)
[2020-11-12] MEDS: piperacillin/tazo 3.375gm/50ml 50 ML IV SCH ×3 (08:30→23:50)
[2020-11-12] MEDS: ringers solution, lacted 1,000 ML IV SCH ×2 (09:23→19:49)
[2020-11-12] MEDS: heparin 10,000 units/1 ML INJ IV PRN ×2 (10:16→17:01)
[2020-11-12 11:00] VITALS: BP 103/65
[2020-11-12 16:00] VITALS: BP 99/64
[2020-11-12 18:00] VITALS: BP 122/70
[2020-11-12 22:00] VITALS: BP 113/69
[2020-11-13 02:00] VITALS: BP 110/66
[2020-11-13] MEDS: HYDROcodone/acetaminophen 10/325mg tab PO PRN ×2 (03:12→14:02)
[2020-11-13] MEDS: diphenhydrAMINE 50 mg/ml inj IV PRN ×3 (03:12→19:32)
[2020-11-13 05:15] LABS: BASOPHILS # (AUTO) 0.1 X10'3 (0-0.2); BASOPHILS % (AUTO) 1.2 % (0-1); EOSINOPHILS # (AUTO) 0.2 X10'3 (0-0.9); LYMPHOCYTES # (AUTO) 1.5 X10'3 (1.1-4.8); MEAN PLATELET VOLUME 5.9 FL (7.4-10.4); RED CELL DISTRIBUTION WIDTH 17.5 % (11.5-14.5); WHITE BLOOD COUNT 5.5 X10'3 (4.5-11.0)
[2020-11-13 05:17] LABS: EOSINOPHILS % (AUTO) 3.1 % (0-6); HEMATOCRIT 24.7 % (42.0-52.0); LYMPHOCYTES % (AUTO) 27.8 % (21-51); MEAN CORPUSCULAR HEMOGLOBIN 25.7 PG (27.0-31.0); MEAN CORPUSCULAR HGB CONC 32.3 g/dL (33.0-36.5); MEAN CORPUSCULAR VOLUME 79.4 FL (78-98); MONOCYTES # (AUTO) 1.2 X10'3 (0-0.9); MONOCYTES % (AUTO) 20.9 % (2-12); NEUTROPHILS # (AUTO) 2.6 X10'3 (1.8-7.7); PLATELET COUNT 537 X10'3 (140-440); RED BLOOD COUNT 3.11 X10'6 (4.70-6.10)
[2020-11-13 05:30] LABS: ALANINE AMINOTRANSFERASE 19 U/L (12-78); ALBUMIN 1.5 G/DL (3.4-5.0); ALBUMIN/GLOBULIN RATIO 0.2 (1.1-1.5); ALKALINE PHOSPHATASE 75 IU/L (46-116); ANION GAP 6 (8-16); ASPARTATE AMINO TRANSFERASE 26 U/L (10-37); BILIRUBIN,TOTAL 0.1 MG/DL (0.1-1.0); BLOOD UREA NITROGEN 13 MG/DL (7-18); BUN/CREATININE RATIO 17.3 (5.4-32.0); CALCIUM 8.9 MG/DL (8.5-10.1); CHLORIDE 100 MMOL/L (99-107); CREATININE 0.75 MG/DL (0.60-1.10); GLUCOSE 81 MG/DL (70-104); POTASSIUM 4.1 MMOL/L (3.5-5.1); SODIUM 135 MMOL/L (135-145); TOTAL CARBON DIOXIDE 28.8 MMOL/L (24-32); TOTAL PROTEIN 7.6 G/DL (6.4-8.2); eGFR > 90 ML/MIN
[2020-11-13 06:00] VITALS: BP 106/70
--- NOTE | 2020-11-13 07:02 | NUR ---
Patient in room PCU 3020. I have received report from NATALIE Mesa and had the opportunity to ask questions and assume patient care.
--- NOTE | 2020-11-13 07:17 | NUR ---
Patient in room PCU 3020. I have received report from Bonita ESTRADA and had the opportunity to ask questions and assume patient care. Patient resting in bed in no acute distress.
[2020-11-13] MEDS: K and/or MAG REPLACEMENT MC SCH ×2 (08:00→19:34)
[2020-11-13] MEDS: piperacillin/tazo 3.375gm/50ml 50 ML IV SCH ×3 (08:12→23:31)
[2020-11-13] MEDS: vancomycin/NS 1 GM ADD-VANTAGE 250 ML X 1 DOSE IV SCH ×3 (08:12→23:32)
[2020-11-13] MEDS: buprenorphine/naloxone 8MG-2MG SUBlingual film SL SCH ×2 (08:13→19:33)
[2020-11-13] MEDS: lactobacillus rhamnosus 10,000 MMU CELLS/CAPSULE PO SCH ×2 (08:13→19:33)
[2020-11-13] MEDS: mineral oil/petrolatum, white cream 113gm jar TP SCH ×2 (08:31→19:33)
[2020-11-13] MEDS: heparin 10,000 units/1 ML INJ IV PRN ×2 (10:17→17:11)
[2020-11-13] MEDS: heparin 25,000 UNIT/250ml bag 250 ML IV SCH ×3 (10:19→17:16)
[2020-11-13 11:00] VITALS: BP 110/67
[2020-11-13] MEDS: normal saline 1000ml 1,000 ML IV SCH (12:26)
--- NOTE | 2020-11-13 14:51 | NUR ---
F/u 11/13: Pt PO 100% avg regular diet w/ double proteins TIDWM meeting needs. LBM 11/11. No nutrition intervention at this time. Will continue to monitor. Recommendations: 1) Continue regular diet 2) Double eggs WB, double meat BIDLD 3) Routine bowel care 4) Scaled weight this admit; weekly scaled weights thereafter Addendum: 11/13/20 at [address] Amended: Links added.
[2020-11-13 15:00] VITALS: BP 112/67
--- NOTE | 2020-11-13 17:26 | NUR ---
[place] documentation: I have reviewed and agree with all interventions, assessments performed and documented by Jojo ESTRADA.
[2020-11-13 18:00] VITALS: BP 117/67
--- NOTE | 2020-11-13 18:08 | NUR ---
Problems reprioritized. Patient report given, questions answered & plan of care reviewed with NATALIE Mesa.
--- NOTE | 2020-11-13 18:11 | NUR ---
Problems reprioritized. Patient report given, questions answered & plan of care reviewed with Bonita Lizama. Patient is resting in bed and is in no acute distress.
[2020-11-13 22:00] VITALS: BP 115/69
[2020-11-13] MEDS: ringers solution, lacted 1,000 ML IV SCH (23:32)
[2020-11-14 02:00] VITALS: BP 115/67
[2020-11-14] MEDS: diphenhydrAMINE 50 mg/ml inj IV PRN ×3 (03:09→19:49)
[2020-11-14] MEDS: HYDROcodone/acetaminophen 10/325mg tab PO PRN ×2 (03:09→14:11)
[2020-11-14 05:49] LABS: HEMOGLOBIN 8.2 g/dl (14.0-17.9); MEAN PLATELET VOLUME 5.7 FL (7.4-10.4)
[2020-11-14 05:51] LABS: MEAN CORPUSCULAR HEMOGLOBIN 25.5 PG (27.0-31.0); MEAN CORPUSCULAR HGB CONC 32.6 g/dL (33.0-36.5); MEAN CORPUSCULAR VOLUME 78.3 FL (78-98); PLATELET COUNT 510 X10'3 (140-440); RED CELL DISTRIBUTION WIDTH 17.5 % (11.5-14.5); WHITE BLOOD COUNT 4.7 X10'3 (4.5-11.0)
[2020-11-14 05:57] LABS: ALANINE AMINOTRANSFERASE 20 U/L (12-78); ALBUMIN 1.6 G/DL (3.4-5.0); ALBUMIN/GLOBULIN RATIO 0.3 (1.1-1.5); ALKALINE PHOSPHATASE 77 IU/L (46-116); ANION GAP 4 (8-16); ASPARTATE AMINO TRANSFERASE 23 U/L (10-37); BILIRUBIN,TOTAL 0.2 MG/DL (0.1-1.0); BLOOD UREA NITROGEN 11 MG/DL (7-18); BUN/CREATININE RATIO 13.6 (5.4-32.0); CALCIUM 9.1 MG/DL (8.5-10.1); CHLORIDE 99 MMOL/L (99-107); CREATININE 0.81 MG/DL (0.60-1.10); GLUCOSE 86 MG/DL (70-104); POTASSIUM 3.8 MMOL/L (3.5-5.1); SODIUM 136 MMOL/L (135-145); TOTAL CARBON DIOXIDE 32.7 MMOL/L (24-32); TOTAL PROTEIN 7.9 G/DL (6.4-8.2); eGFR > 90 ML/MIN
[2020-11-14] MEDS: heparin 25,000 UNIT/250ml bag 250 ML IV SCH ×2 (06:01→08:18)
--- NOTE | 2020-11-14 06:55 | NUR ---
Patient in room PCU 3020. I have received report from Bonita ESTRADA and had the opportunity to ask questions and assume patient care. Patient awake and resting in bed in no acute distress.
[2020-11-14 07:00] VITALS: BP 110/66
[2020-11-14] MEDS: K and/or MAG REPLACEMENT MC SCH ×2 (08:00→20:00)
[2020-11-14] MEDS: vancomycin/NS 1 GM ADD-VANTAGE 250 ML X 1 DOSE IV SCH ×3 (08:05→23:51)
[2020-11-14] MEDS: piperacillin/tazo 3.375gm/50ml 50 ML IV SCH ×3 (08:05→23:51)
[2020-11-14] MEDS: mineral oil/petrolatum, white cream 113gm jar TP SCH ×2 (08:06→19:49)
[2020-11-14] MEDS: lactobacillus rhamnosus 10,000 MMU CELLS/CAPSULE PO SCH ×2 (08:06→19:49)
[2020-11-14] MEDS: buprenorphine/naloxone 8MG-2MG SUBlingual film SL SCH ×2 (08:06→19:49)
[2020-11-14 10:21] LABS: LYMPHOCYTES % (MANUAL) 31 % (21-51); NEUTROPHILS % (MANUAL) 44 % (42-75); TOTAL CELLS COUNTED 100
[2020-11-14 10:22] LABS: ANISOCYTOSIS 1+; MICROCYTOSIS 1+; PLATELET ESTIMATE INCREASED
[2020-11-14 10:24] LABS: POLYCHROMASIA FEW; STOMATOCYTES 1+
[2020-11-14 11:00] VITALS: BP 103/62
--- NOTE | 2020-11-14 11:56 | NUR ---
Ok per Dr. Owen to order PT for patient regarding left hip pain post aspiration of abscess and his report of difficulty moving.
[2020-11-14] MEDS: heparin 10,000 units/1 ML INJ IV PRN (14:06)
[2020-11-14 15:00] VITALS: BP 106/66
[2020-11-14 18:00] VITALS: BP 113/66
--- NOTE | 2020-11-14 18:15 | NUR ---
Problems reprioritized. Patient report given, questions answered & plan of care reviewed with Bonita ESTRADA. Patient resting in bed eating dinner and is in no acute distress at this time.
[2020-11-14] MEDS: ringers solution, lacted 1,000 ML IV SCH (19:50)
[2020-11-14 22:00] VITALS: BP 112/69
[2020-11-15] VITALS (15 sets, daily range): BP systolic 100–134; BP diastolic 60–89
[2020-11-15] MEDS: HYDROcodone/acetaminophen 10/325mg tab PO PRN (02:45)
[2020-11-15] MEDS: diphenhydrAMINE 50 mg/ml inj IV PRN (02:46)
--- NOTE | 2020-11-15 03:15 | NUR ---
0315 DVT PTT LEVEL WAS NOT USED TO ADJUST HEPARIN LEVEL D/T TENTATIVE SURGERY TODAY. NO ORDER PRESENT TO STOP HEPARIN GTT.
[2020-11-15 04:08] LABS: BASOPHILS % (AUTO) 0.7 % (0-1); EOSINOPHILS # (AUTO) 0.2 X10'3 (0-0.9); EOSINOPHILS % (AUTO) 4.8 % (0-6); HEMATOCRIT 23.1 % (42.0-52.0); HEMOGLOBIN 7.5 g/dl (14.0-17.9); LYMPHOCYTES # (AUTO) 1.4 X10'3 (1.1-4.8); LYMPHOCYTES % (AUTO) 28.2 % (21-51); MEAN CORPUSCULAR HEMOGLOBIN 25.5 PG (27.0-31.0); MEAN CORPUSCULAR HGB CONC 32.6 g/dL (33.0-36.5); MEAN CORPUSCULAR VOLUME 78.2 FL (78-98); MONOCYTES # (AUTO) 1.1 X10'3 (0-0.9); MONOCYTES % (AUTO) 22.5 % (2-12); NEUTROPHILS # (AUTO) 2.1 X10'3 (1.8-7.7); NEUTROPHILS % (AUTO) 43.8 % (42-75); PLATELET COUNT 445 X10'3 (140-440); RED BLOOD COUNT 2.95 X10'6 (4.70-6.10); RED CELL DISTRIBUTION WIDTH 17.2 % (11.5-14.5); WHITE BLOOD COUNT 4.8 X10'3 (4.5-11.0)
[2020-11-15 05:06] LABS: TOTAL CELLS COUNTED 100
[2020-11-15 05:07] LABS: ANISOCYTOSIS 1+; MICROCYTOSIS 1+; PLATELET ESTIMATE INCREASED; POLYCHROMASIA 1+
--- NOTE | 2020-11-15 07:00 | NUR ---
OR notified by phone heparin ggt was turned off @0700. Dr. German notified of same and he called back and said that was fine.
--- NOTE | 2020-11-15 07:10 | NUR ---
Heparin gtt not turned off during previous shift. Heparin gtt turned @0700. Dr. German's answering service notified @0708 at phone # [phone]
[2020-11-15] MEDS: mineral oil/petrolatum, white cream 113gm jar TP SCH ×2 (07:50→19:33)
[2020-11-15] MEDS: buprenorphine/naloxone 8MG-2MG SUBlingual film SL SCH ×2 (07:50→20:00)
[2020-11-15] MEDS: piperacillin/tazo 3.375gm/50ml 50 ML IV SCH ×2 (07:50→19:33)
[2020-11-15] MEDS: vancomycin/NS 1 GM ADD-VANTAGE 250 ML X 1 DOSE IV SCH ×3 (07:50→20:17)
[2020-11-15] MEDS: K and/or MAG REPLACEMENT MC SCH ×2 (07:50→20:00)
[2020-11-15] MEDS: lactobacillus rhamnosus 10,000 MMU CELLS/CAPSULE PO SCH ×2 (07:50→21:21)
--- NOTE | 2020-11-15 08:14 | NUR ---
3020 White. Patient needs preop EKG. scheduled at 1230. Tameka [phone]
[2020-11-15] MEDS: heparin 25,000 UNIT/250ml bag 250 ML IV SCH (08:34)
--- NOTE | 2020-11-15 10:23 | NUR ---
Page Sent promotional table spacer PAGER ID: [phone] MESSAGE: 3020. Joel. Can I please have you sign a consent to give blood? Dr. Neely ordered one unit but he is in surgery and unavailable to sign the consent and the OR wants me to start it. I will come to you. Tameka [phone]
[2020-11-15] MEDS ORDERED: famotidine/PF 10 mg/ml inj IV ONE (11:30)
--- NOTE | 2020-11-15 12:42 | NUR ---
Report called to recovery
--- NOTE | 2020-11-15 12:55 | NUR ---
Patient taken to OR. Blood transfusion almost complete
[2020-11-15] MEDS: normal saline 1000ml 1,000 ML IV SCH (13:55)
[2020-11-15] MEDS ORDERED: fentaNYL /PF 50mcg/ml 5ml ampule ONE (14:16)
[2020-11-15] MEDS ORDERED: midazolam 1 mg/ML 2ml injection ONE ×2 (14:16→18:27)
[2020-11-15] MEDS ORDERED: sevoflurane 250ml liquid IH ONE (14:17)
--- NOTE | 2020-11-15 15:07 | NUR ---
Robson de luna and magno sent to OR per OR staff request.
[2020-11-15] MEDS ORDERED: midazolam 1 mg/ML 2ml injection IV ONE (15:55)
[2020-11-15] MEDS ORDERED: fentaNYL/PF 50MCG/1 ML 2ML syringe IV PRN (15:55)
[2020-11-15] MEDS ORDERED: ipratropium/albuterol 3ml nebule NEB PRN (15:55)
[2020-11-15] MEDS ORDERED: propofol inj 20 ML IV ONE (16:49)
[2020-11-15] MEDS ORDERED: phenylephrine 10mg/ml inj. ONE (16:49)
[2020-11-15] MEDS ORDERED: rocuronium 10mg/ml inj IV ONE (16:49)
[2020-11-15] MEDS ORDERED: LIDOcaine 2% (20mg/ml) 5ml vial ONE (16:49)
[2020-11-15] MEDS ORDERED: albumin (Human) 5% 250ml 250 ML IV ONE (17:12)
--- NOTE | 2020-11-15 17:20 | NUR ---
Received repor Addendum: 11/15/20 at 1721 by Rosie Ro RN Patient in room [facility] 3020. I have received report from Kristi and had the opportunity to ask questions and assume patient care.
--- NOTE | 2020-11-15 17:20 | NUR ---
Problems reprioritized. Patient report given, questions answered & plan of care reviewed with Koffi RN. Patient still in OR
[2020-11-15] MEDS ORDERED: fentaNYL/PF 50MCG/1 ML 2ML syringe ONE (17:40)
[2020-11-15] MEDS ORDERED: HYDROcodone/acetaminophen 10/325mg tab PO PRN ×2 (17:45)
[2020-11-15] MEDS ORDERED: ondansetron/PF 4mg/2ml inj IV PRN (17:45)
[2020-11-15] MEDS ORDERED: naloxone 0.4 mg/ml inj IV PRN (17:45)
[2020-11-15] MEDS ORDERED: morphine 4 MG/ML inj SYRINge IV PRN ×2 (17:45)
[2020-11-15] MEDS ORDERED: metoclopramide 5 mg/ml inj IV PRN (17:45)
[2020-11-15] MEDS ORDERED: albuterol 2.5 MG/3 ML nebule NEB PRN (17:45)
[2020-11-15] MEDS ORDERED: CADD PCA waste documentation MC PRN (17:45)
--- NOTE | 2020-11-15 18:27 | NUR ---
Versed 2 mg given IV per MD order, Dr. Pritchett and at bedside, patient very anxious and restless on Ventilator, RN will also start IV Fentanyl gtt and IV Versed gtt shortly.
--- NOTE | 2020-11-15 18:56 | NUR ---
Leukoreduced packed cells not currently infusing, infusion stopped by RN in OR not documented.
[2020-11-15] MEDS: ringers solution, lacted 1,000 ML IV SCH (19:07)
[2020-11-15] MEDS: potassium Cl 20mEq in D5-NS 1,000 ML IV SCH (19:33)
[2020-11-15] MEDS: midazolam 100mg in NS 100ml 100 ML IV PRN ×2 (19:39→23:47)
[2020-11-15] MEDS: FENTANYL-0.9 % NACL/PF 100 ML IV PRN ×2 (19:40→22:45)
[2020-11-15 19:41] LABS: ABG BASE EXCESS -1.4 mmol/L (-2.0-2.0); ABG HCO3 23.4 mmol/L (22.0-26.0); ABG OXYGEN SATURATION 99.3 % (94-97); ABG PCO2 (T) 39.6 mmHg (35.0-48.0); ABG PO2 (T) 199.8 mmHg (75.0-100.0); FCOHb 0.1 % (0.0-3.9); FMetHb 0.5 % (0.0-1.5); FO2Hb 98.7 % (94-97); PATIENT TEMPERATURE 37.1; PEEP 5 cm H2O; RESPIRATORY RATE 12 b/min; TIDAL VOLUME 550 mL; TOTAL HEMOGLOBIN 8.7 G/dl (14.0-18.0)
[2020-11-15] MEDS: gabapentin 300mg capsule PO SCH (21:21)
[2020-11-15] MEDS: acetaminophen 325mg tablet PO PRN (22:22)
[2020-11-16] VITALS (23 sets, daily range): BP systolic 115–144; BP diastolic 67–90
[2020-11-16] MEDS: FENTANYL-0.9 % NACL/PF 100 ML IV PRN ×2 (02:32→07:39)
[2020-11-16 02:46] LABS: EOSINOPHILS % (AUTO) 0.3 % (0-6); HEMOGLOBIN 9.2 g/dl (14.0-17.9); LYMPHOCYTES # (AUTO) 0.7 X10'3 (1.1-4.8); MEAN CORPUSCULAR HGB CONC 33.9 g/dL (33.0-36.5); RED CELL DISTRIBUTION WIDTH 16.7 % (11.5-14.5); WHITE BLOOD COUNT 7.3 X10'3 (4.5-11.0)
[2020-11-16 02:49] LABS: BASOPHILS % (AUTO) 0.7 % (0-1); HEMATOCRIT 27.3 % (42.0-52.0); LYMPHOCYTES % (AUTO) 9.5 % (21-51); MEAN CORPUSCULAR HEMOGLOBIN 26.3 PG (27.0-31.0); MEAN CORPUSCULAR VOLUME 77.8 FL (78-98); MEAN PLATELET VOLUME 5.6 FL (7.4-10.4); MONOCYTES % (AUTO) 27.8 % (2-12); NEUTROPHILS # (AUTO) 4.5 X10'3 (1.8-7.7); NEUTROPHILS % (AUTO) 61.7 % (42-75); PLATELET COUNT 448 X10'3 (140-440); RED BLOOD COUNT 3.51 X10'6 (4.70-6.10)
[2020-11-16 02:58] LABS: ALANINE AMINOTRANSFERASE 23 U/L (12-78); ALBUMIN 1.8 G/DL (3.4-5.0); ALBUMIN/GLOBULIN RATIO 0.3 (1.1-1.5); ALKALINE PHOSPHATASE 74 IU/L (46-116); ANION GAP 5 (8-16); ASPARTATE AMINO TRANSFERASE 29 U/L (10-37); BILIRUBIN,TOTAL 0.3 MG/DL (0.1-1.0); BLOOD UREA NITROGEN 11 MG/DL (7-18); BUN/CREATININE RATIO 15.7 (5.4-32.0); CALCIUM 8.7 MG/DL (8.5-10.1); CHLORIDE 102 MMOL/L (99-107); GLUCOSE 149 MG/DL (70-104); MAGNESIUM 1.5 MG/DL (1.5-2.4); PHOSPHORUS 4.1 MG/DL (2.3-4.5); POTASSIUM 3.5 MMOL/L (3.5-5.1); SODIUM 137 MMOL/L (135-145); TOTAL CARBON DIOXIDE 29.9 MMOL/L (24-32); TOTAL PROTEIN 7.6 G/DL (6.4-8.2); eGFR > 90 ML/MIN
[2020-11-16 03:41] LABS: TOTAL CELLS COUNTED 100
[2020-11-16 03:42] LABS: ANISOCYTOSIS 1+; MICROCYTOSIS 1+; PLATELET ESTIMATE INCREASED; POLYCHROMASIA 1+
[2020-11-16 03:49] LABS: ABG BASE EXCESS 1.5 mmol/L (-2.0-2.0); ABG HCO3 26.3 mmol/L (22.0-26.0); ABG OXYGEN SATURATION 99.2 % (94-97); ABG PCO2 (T) 44.8 mmHg (35.0-48.0); ABG PO2 (T) 199.7 mmHg (75.0-100.0); ALLEN'S TEST POSITIVE; FCOHb 0.3 % (0.0-3.9); FMetHb 0.4 % (0.0-1.5); FO2Hb 98.5 % (94-97); PATIENT TEMPERATURE 38.5; PEEP 5 cm H2O; RESPIRATORY RATE 12 b/min; TIDAL VOLUME 550 mL
[2020-11-16] MEDS: acetaminophen 325mg tablet PO PRN ×3 (04:25→21:21)
[2020-11-16] MEDS: piperacillin/tazo 3.375gm/50ml 50 ML IV SCH ×3 (04:25→20:24)
[2020-11-16] MEDS: vancomycin/NS 1 GM ADD-VANTAGE 250 ML X 1 DOSE IV SCH ×3 (04:25→20:24)
[2020-11-16] MEDS: midazolam 100mg in NS 100ml 100 ML IV PRN (05:40)
[2020-11-16] MEDS: potassium Cl 20mEq in D5-NS 1,000 ML IV SCH ×2 (06:15→11:39)
--- NOTE | 2020-11-16 06:25 | NUR ---
Problems reprioritized. Patient report given, questions answered & plan of care reviewed with Cornelia and Red RNs.
[2020-11-16] MEDS: heparin 25,000 UNIT/250ml bag 250 ML IV SCH (07:18)
[2020-11-16] MEDS: mineral oil/petrolatum, white cream 113gm jar TP SCH ×2 (07:41→20:25)
[2020-11-16] MEDS: lactobacillus rhamnosus 10,000 MMU CELLS/CAPSULE PO SCH ×2 (07:41→20:24)
[2020-11-16] MEDS: gabapentin 300mg capsule PO SCH ×2 (07:41→20:24)
[2020-11-16] MEDS: K and/or MAG REPLACEMENT MC SCH ×2 (07:53→20:00)
[2020-11-16] MEDS: buprenorphine/naloxone 8MG-2MG SUBlingual film SL SCH ×2 (07:54→20:24)
--- NOTE | 2020-11-16 10:43 | NUR ---
Patient in room CICU 2008. I have received report from Cornelia ESTRADA and had the opportunity to ask questions and assume patient care.
[2020-11-16] MEDS ORDERED: magnesium 4gm in 100ml NS 100 ML IV ONE (11:00)
[2020-11-16] MEDS ORDERED: Potassium Cl 40 MEQ in sodium chloride 0.45% 500 ML IV ONE (11:00)
--- NOTE | 2020-11-16 11:08 | NUR ---
F/u 11/16: Pt intubated s/p R upper and lower lobe wedge resections for masses w/ decortication and R CT x2 placement per EMR. Pending extubation and advancement to clear liquids today per actuarial trainee. Prior PO 75-100% avg regular diet w/ double proteins TIDWM. LBM 11/14. Will monitor for diet advancement and tolerance s/p extubation. Recommendations: 1) advance diet as medically indicated to regular 2) once returned to regular diet; Double eggs WB, double meat BIDLD 3) Routine bowel care 4) Scaled weight this admit; weekly scaled weights thereafter Addendum: 11/16/20 at [address] Amended: Links added.
[2020-11-16] MEDS: HYDROmorphone inj. 0.5 MG/0.5 ML DISP.SYRIN IV PRN ×2 (13:39→17:12)
--- NOTE | 2020-11-16 14:02 | NUR ---
DC Art line Lt radial art line discontinued, cath tip intact. Addendum: 11/16/20 at 1403 by Red Elmore RN Amended: Links added.
--- NOTE | 2020-11-16 18:11 | NUR ---
Problems reprioritized. Patient report given, questions answered & plan of care reviewed with El ESTRADA.
--- NOTE | 2020-11-16 18:12 | NUR ---
Patient in room CICU 2008. I have received report from rachna ESTRADA and had the opportunity to ask questions and assume patient care.
--- NOTE | 2020-11-16 18:18 | NUR ---
Problems reprioritized. Patient report given, questions answered & plan of care reviewed with Tory ESTRADA.
[2020-11-16] MEDS ORDERED: mineral oil/petrolatum ophthal oint EACHEYE SCH (20:00)
[2020-11-17] VITALS (17 sets, daily range): BP systolic 109–129; BP diastolic 58–94
[2020-11-17] MEDS: diphenhydrAMINE 50 mg/ml inj IV PRN (01:53)
[2020-11-17] MEDS: piperacillin/tazo 3.375gm/50ml 50 ML IV SCH ×3 (03:32→22:10)
[2020-11-17] MEDS: vancomycin/NS 1 GM ADD-VANTAGE 250 ML X 1 DOSE IV SCH ×3 (03:43→22:10)
[2020-11-17 03:52] LABS: HEMOGLOBIN 7.6 g/dl (14.0-17.9); MEAN CORPUSCULAR HEMOGLOBIN 26.1 PG (27.0-31.0); MEAN CORPUSCULAR VOLUME 79.1 FL (78-98); MEAN PLATELET VOLUME 5.7 FL (7.4-10.4); RED BLOOD COUNT 2.93 X10'6 (4.70-6.10)
[2020-11-17 03:54] LABS: HEMATOCRIT 23.1 % (42.0-52.0); PLATELET COUNT 329 X10'3 (140-440); WHITE BLOOD COUNT 6.3 X10'3 (4.5-11.0)
[2020-11-17 04:09] LABS: ALANINE AMINOTRANSFERASE 16 U/L (12-78); ALBUMIN 1.5 G/DL (3.4-5.0); ALBUMIN/GLOBULIN RATIO 0.3 (1.1-1.5); ALKALINE PHOSPHATASE 59 IU/L (46-116); ANION GAP 3 (8-16); ASPARTATE AMINO TRANSFERASE 27 U/L (10-37); BILIRUBIN,TOTAL 0.2 MG/DL (0.1-1.0); BLOOD UREA NITROGEN 6 MG/DL (7-18); CALCIUM 8.4 MG/DL (8.5-10.1); CHLORIDE 102 MMOL/L (99-107); CREATININE 0.75 MG/DL (0.60-1.10); GLUCOSE 106 MG/DL (70-104); MAGNESIUM 1.8 MG/DL (1.5-2.4); PHOSPHORUS 2.4 MG/DL (2.3-4.5); POTASSIUM 3.9 MMOL/L (3.5-5.1); SODIUM 138 MMOL/L (135-145); TOTAL CARBON DIOXIDE 32.6 MMOL/L (24-32); TOTAL PROTEIN 6.5 G/DL (6.4-8.2); VANCOMYCIN,TROUGH 18.9 UG/ML (6.0-14.0); eGFR > 90 ML/MIN
[2020-11-17 05:45] LABS: TOTAL CELLS COUNTED 100
[2020-11-17 05:50] LABS: ANISOCYTOSIS 1+; MICROCYTOSIS 1+; PLATELET ESTIMATE NORMAL
[2020-11-17] MEDS: heparin 25,000 UNIT/250ml bag 250 ML IV SCH (06:02)
--- NOTE | 2020-11-17 06:20 | NUR ---
Problems reprioritized. Patient report given, questions answered & plan of care reviewed with Lola ESTRADA.
--- NOTE | 2020-11-17 06:31 | NUR ---
Patient in room CICU 2008. I have received report from NATALIE Ordaz and had the opportunity to ask questions and assume patient care.
[2020-11-17] MEDS: potassium Cl 20mEq in D5-NS 1,000 ML IV SCH ×2 (08:00→22:36)
[2020-11-17] MEDS: K and/or MAG REPLACEMENT MC SCH ×2 (08:00→20:00)
[2020-11-17] MEDS: lactobacillus rhamnosus 10,000 MMU CELLS/CAPSULE PO SCH ×2 (08:00→22:10)
[2020-11-17] MEDS: gabapentin 300mg capsule PO SCH (08:00)
[2020-11-17] MEDS: buprenorphine/naloxone 8MG-2MG SUBlingual film SL SCH ×2 (08:02→22:09)
[2020-11-17] MEDS: mineral oil/petrolatum, white cream 113gm jar TP SCH ×2 (08:44→22:14)
[2020-11-17] MEDS ORDERED: enoxaparin 30mg/0.3ml syringe SQ SCH (11:01)
[2020-11-17] MEDS: enoxaparin 40mg/0.4ml syringe SQ SCH ×3 (11:34→22:48)
[2020-11-17] MEDS: ketorolac trometh. 30mg/ml inj. IV PRN (11:35)
--- NOTE | 2020-11-17 15:18 | NUR ---
Problems reprioritized. Patient report given, questions answered & plan of care reviewed with NATALIE Mcdermott. CL given to patient. Fluids running per md orders. Patient ambulated into hospital bed 351. Medications and chart given to primary nurse.
--- NOTE | 2020-11-17 18:35 | NUR ---
Patient in room [facility] 351. I have received report from NATALIE Mcdermott and had the opportunity to ask questions and assume patient care.
--- NOTE | 2020-11-17 18:36 | NUR ---
Problems reprioritized. Patient report given, questions answered & plan of care reviewed with Joana ESTRADA.
--- NOTE | 2020-11-17 18:50 | NUR ---
Patient in room [facility] 345. I have received report from NATALIE Mcdermott and had the opportunity to ask questions and assume patient care.
[2020-11-17] MEDS: enoxaparin 30mg/0.3ml syringe SQ SCH ×2 (22:38→22:47)
[2020-11-18] VITALS: BP 122/74
[2020-11-18] MEDS: vancomycin/NS 1 GM ADD-VANTAGE 250 ML X 1 DOSE IV SCH ×3 (05:18→20:15)
[2020-11-18] MEDS: piperacillin/tazo 3.375gm/50ml 50 ML IV SCH ×3 (05:18→20:15)
[2020-11-18] MEDS: ketorolac trometh. 30mg/ml inj. IV PRN ×2 (05:28→22:03)
--- NOTE | 2020-11-18 06:47 | NUR ---
Problems reprioritized. Patient report given, questions answered & plan of care reviewed with NATALIE Esparza.
--- NOTE | 2020-11-18 06:48 | NUR ---
Problems reprioritized. Patient report given, questions answered & plan of care reviewed with NATALIE Esparza.
[2020-11-18 07:00] VITALS: BP 114/68
[2020-11-18 07:05] LABS: BASOPHILS # (AUTO) 0.1 X10'3 (0-0.2); EOSINOPHILS # (AUTO) 0.2 X10'3 (0-0.9); HEMOGLOBIN 7.1 g/dl (14.0-17.9); LYMPHOCYTES # (AUTO) 1.5 X10'3 (1.1-4.8); LYMPHOCYTES % (AUTO) 22.7 % (21-51); MONOCYTES # (AUTO) 1.9 X10'3 (0-0.9); PLATELET COUNT 355 X10'3 (140-440); RED CELL DISTRIBUTION WIDTH 16.6 % (11.5-14.5)
[2020-11-18 07:08] LABS: BASOPHILS % (AUTO) 1.7 % (0-1); EOSINOPHILS % (AUTO) 3.8 % (0-6); MEAN CORPUSCULAR HEMOGLOBIN 26.1 PG (27.0-31.0); MEAN CORPUSCULAR HGB CONC 33.2 g/dL (33.0-36.5); MEAN CORPUSCULAR VOLUME 78.8 FL (78-98); MONOCYTES % (AUTO) 30.1 % (2-12); NEUTROPHILS # (AUTO) 2.7 X10'3 (1.8-7.7); NEUTROPHILS % (AUTO) 41.7 % (42-75); RED BLOOD COUNT 2.73 X10'6 (4.70-6.10); WHITE BLOOD COUNT 6.4 X10'3 (4.5-11.0)
[2020-11-18 07:17] LABS: HEMATOCRIT 21.5 % (42.0-52.0)
[2020-11-18 07:28] LABS: ALANINE AMINOTRANSFERASE 23 U/L (12-78); ALBUMIN 1.4 G/DL (3.4-5.0); ALBUMIN/GLOBULIN RATIO 0.3 (1.1-1.5); ALKALINE PHOSPHATASE 63 IU/L (46-116); ANION GAP 3 (8-16); ASPARTATE AMINO TRANSFERASE 29 U/L (10-37); BILIRUBIN,TOTAL 0.2 MG/DL (0.1-1.0); BLOOD UREA NITROGEN 7 MG/DL (7-18); BUN/CREATININE RATIO 12.7 (5.4-32.0); CALCIUM 8.4 MG/DL (8.5-10.1); CHLORIDE 102 MMOL/L (99-107); CREATININE 0.55 MG/DL (0.60-1.10); GLUCOSE 91 MG/DL (70-104); MAGNESIUM 1.5 MG/DL (1.5-2.4); PHOSPHORUS 2.3 MG/DL (2.3-4.5); SODIUM 137 MMOL/L (135-145); TOTAL CARBON DIOXIDE 32.4 MMOL/L (24-32); TOTAL PROTEIN 6.5 G/DL (6.4-8.2); eGFR > 90 ML/MIN
[2020-11-18] MEDS: lactobacillus rhamnosus 10,000 MMU CELLS/CAPSULE PO SCH ×2 (07:55→20:17)
[2020-11-18] MEDS: buprenorphine/naloxone 8MG-2MG SUBlingual film SL SCH ×2 (07:55→20:17)
[2020-11-18] MEDS: K and/or MAG REPLACEMENT MC SCH ×2 (08:00→20:00)
[2020-11-18] MEDS: mineral oil/petrolatum, white cream 113gm jar TP SCH ×2 (08:00→20:22)
[2020-11-18 11:00] VITALS: BP 115/72
[2020-11-18] MEDS: ipratropium/albuterol 3ml nebule NEB PRN (11:23)
[2020-11-18] MEDS: potassium Cl 20mEq in D5-NS 1,000 ML IV SCH (11:27)
--- NOTE | 2020-11-18 11:35 | NUR ---
Dr. Womack was notified over the phone about the positive MRSA in sputum and pleural fluid. Patient currently on Vancomycin IV and Zosyn IV. No new order received.
--- NOTE | 2020-11-18 11:47 | NUR ---
Paged Dr. Owen PAGER ID: [phone] MESSAGE: Surgical Isaias ESTRADA ext [phone]. RE: Scotty Maldonado. Hgb/Hct today .
--- NOTE | 2020-11-18 15:14 | NUR ---
Wound care on bilateral lower legs not performed. No open wound noted on the lower extremities
--- NOTE | 2020-11-18 17:33 | NUR ---
Patient requested to walk in the hallway after dinner time tonight.
[2020-11-18 18:00] VITALS: BP 115/74
--- NOTE | 2020-11-18 18:44 | NUR ---
Patient in room [facility] 351. I have received report from CHONG ESTRADA and had the opportunity to ask questions and assume patient care.
--- NOTE | 2020-11-18 18:51 | NUR ---
Problems reprioritized. Patient report given, questions answered & plan of care reviewed with Prudence RN.
[2020-11-18] MEDS: enoxaparin 30mg/0.3ml syringe SQ SCH (20:16)
[2020-11-18] MEDS: enoxaparin 40mg/0.4ml syringe SQ SCH (20:16)
[2020-11-18] MEDS: acetaminophen 325mg tablet PO PRN (20:17)
[2020-11-19] VITALS (8 sets, daily range): BP systolic 103–130; BP diastolic 67–79
[2020-11-19] MEDS: potassium Cl 20mEq in D5-NS 1,000 ML IV SCH (03:09)
[2020-11-19] MEDS: vancomycin/NS 1 GM ADD-VANTAGE 250 ML X 1 DOSE IV SCH ×3 (04:13→20:58)
[2020-11-19] MEDS: piperacillin/tazo 3.375gm/50ml 50 ML IV SCH ×3 (04:13→20:58)
[2020-11-19 05:51] LABS: EOSINOPHILS # (AUTO) 0.4 X10'3 (0-0.9); LYMPHOCYTES # (AUTO) 1.3 X10'3 (1.1-4.8); MEAN CORPUSCULAR VOLUME 78.4 FL (78-98); RED BLOOD COUNT 2.64 X10'6 (4.70-6.10); WHITE BLOOD COUNT 5.5 X10'3 (4.5-11.0)
[2020-11-19 05:55] LABS: BASOPHILS # (AUTO) 0.1 X10'3 (0-0.2); BASOPHILS % (AUTO) 1.8 % (0-1); EOSINOPHILS % (AUTO) 6.6 % (0-6); LYMPHOCYTES % (AUTO) 23.9 % (21-51); MEAN CORPUSCULAR HEMOGLOBIN 25.8 PG (27.0-31.0); MEAN CORPUSCULAR HGB CONC 32.9 g/dL (33.0-36.5); MEAN PLATELET VOLUME 5.9 FL (7.4-10.4); MONOCYTES # (AUTO) 1.5 X10'3 (0-0.9); MONOCYTES % (AUTO) 26.7 % (2-12); NEUTROPHILS # (AUTO) 2.2 X10'3 (1.8-7.7); PLATELET COUNT 377 X10'3 (140-440); RED CELL DISTRIBUTION WIDTH 16.5 % (11.5-14.5)
[2020-11-19 06:08] LABS: HEMATOCRIT 20.7 % (42.0-52.0); HEMOGLOBIN 6.8 g/dl (14.0-17.9)
[2020-11-19 06:10] LABS: ALANINE AMINOTRANSFERASE 29 U/L (12-78); ALBUMIN 1.3 G/DL (3.4-5.0); ALBUMIN/GLOBULIN RATIO 0.3 (1.1-1.5); ALKALINE PHOSPHATASE 62 IU/L (46-116); ANION GAP 2 (8-16); ASPARTATE AMINO TRANSFERASE 31 U/L (10-37); BILIRUBIN,TOTAL 0.2 MG/DL (0.1-1.0); BLOOD UREA NITROGEN 10 MG/DL (7-18); BUN/CREATININE RATIO 14.9 (5.4-32.0); CALCIUM 8.5 MG/DL (8.5-10.1); CHLORIDE 105 MMOL/L (99-107); CREATININE 0.67 MG/DL (0.60-1.10); GLUCOSE 91 MG/DL (70-104); MAGNESIUM 1.5 MG/DL (1.5-2.4); PHOSPHORUS 3.2 MG/DL (2.3-4.5); POTASSIUM 4.2 MMOL/L (3.5-5.1); SODIUM 139 MMOL/L (135-145); TOTAL CARBON DIOXIDE 31.8 MMOL/L (24-32); TOTAL PROTEIN 6.3 G/DL (6.4-8.2); eGFR > 90 ML/MIN
--- NOTE | 2020-11-19 06:29 | NUR ---
Problems reprioritized. Patient report given, questions answered & plan of care reviewed with VETO ESTRADA.
[2020-11-19 06:58] LABS: PLATELET ESTIMATE NORMAL
[2020-11-19 06:59] LABS: ANISOCYTOSIS 1+; MICROCYTOSIS 1+; POLYCHROMASIA 1+
--- NOTE | 2020-11-19 07:31 | NUR ---
PAGER ID: [phone] MESSAGE: Good morning - Scotty Maldonado 351 Critical value. H&H 6.8 and 20.7. Has been trending downwards. Will hold both doses of Lovenox until further orders. Maame [phone]
[2020-11-19] MEDS: K and/or MAG REPLACEMENT MC SCH ×2 (08:00→20:00)
[2020-11-19] MEDS: enoxaparin 40mg/0.4ml syringe SQ SCH ×2 (08:00→20:59)
[2020-11-19] MEDS: enoxaparin 30mg/0.3ml syringe SQ SCH ×2 (08:00→20:59)
[2020-11-19] MEDS: buprenorphine/naloxone 8MG-2MG SUBlingual film SL SCH ×2 (08:14→20:58)
[2020-11-19] MEDS: lactobacillus rhamnosus 10,000 MMU CELLS/CAPSULE PO SCH ×2 (08:14→20:58)
[2020-11-19] MEDS: mineral oil/petrolatum, white cream 113gm jar TP SCH ×2 (08:14→20:00)
[2020-11-19] MEDS: acetaminophen 325mg tablet PO PRN ×2 (08:15→14:23)
--- NOTE | 2020-11-19 13:19 | NUR ---
PHARMACY MADE AWARE VANCO AND ZOSYN WILL BE ADMINISTERED LATE. OK WITH HANGING ATB. AFTER BLOOD IS FINISHED INFUSING.
--- NOTE | 2020-11-19 15:11 | NUR ---
ABLE TO FLUSH PICC, BUT UNABLE TO DRAW BLOOD. LAB MADE AWARE AND STATES THEY WILL COME DRAW CURRENT HEMOGRAM ORDER.
[2020-11-19 15:37] LABS: HEMATOCRIT 30.4 % (42.0-52.0); HEMOGLOBIN 9.9 g/dl (14.0-17.9); MEAN CORPUSCULAR HEMOGLOBIN 26.1 PG (27.0-31.0); MEAN CORPUSCULAR HGB CONC 32.6 g/dL (33.0-36.5); MEAN PLATELET VOLUME 5.9 FL (7.4-10.4); PLATELET COUNT 505 X10'3 (140-440); RED CELL DISTRIBUTION WIDTH 16.5 % (11.5-14.5); WHITE BLOOD COUNT 6.8 X10'3 (4.5-11.0)
--- NOTE | 2020-11-19 18:38 | NUR ---
Gave report to Prudence NATALIE.
--- NOTE | 2020-11-19 18:50 | NUR ---
Patient in room [facility] 351. I have received report from VETO ESTRADA and had the opportunity to ask questions and assume patient care.
[2020-11-19] MEDS: ketorolac trometh. 30mg/ml inj. IV PRN (18:58)
[2020-11-20 00:33] VITALS: BP 113/71
[2020-11-20] MEDS: piperacillin/tazo 3.375gm/50ml 50 ML IV SCH ×3 (04:17→21:13)
[2020-11-20] MEDS: vancomycin/NS 1 GM ADD-VANTAGE 250 ML X 1 DOSE IV SCH ×3 (04:42→21:14)
[2020-11-20 06:17] LABS: BASOPHILS # (AUTO) 0.1 X10'3 (0-0.2); EOSINOPHILS # (AUTO) 0.4 X10'3 (0-0.9); HEMOGLOBIN 8.6 g/dl (14.0-17.9); LYMPHOCYTES # (AUTO) 1.1 X10'3 (1.1-4.8); MONOCYTES # (AUTO) 1.6 X10'3 (0-0.9); NEUTROPHILS # (AUTO) 2.9 X10'3 (1.8-7.7); RED CELL DISTRIBUTION WIDTH 16.3 % (11.5-14.5)
[2020-11-20 06:19] LABS: BASOPHILS % (AUTO) 1.4 % (0-1); EOSINOPHILS % (AUTO) 6.4 % (0-6); HEMATOCRIT 26.3 % (42.0-52.0); LYMPHOCYTES % (AUTO) 18.4 % (21-51); MEAN CORPUSCULAR HEMOGLOBIN 26.1 PG (27.0-31.0); MEAN CORPUSCULAR HGB CONC 32.7 g/dL (33.0-36.5); MEAN CORPUSCULAR VOLUME 79.7 FL (78-98); MEAN PLATELET VOLUME 5.9 FL (7.4-10.4); MONOCYTES % (AUTO) 26.5 % (2-12); NEUTROPHILS % (AUTO) 47.3 % (42-75); PLATELET COUNT 488 X10'3 (140-440); RED BLOOD COUNT 3.29 X10'6 (4.70-6.10); WHITE BLOOD COUNT 6.2 X10'3 (4.5-11.0)
[2020-11-20 06:29] LABS: ALANINE AMINOTRANSFERASE 31 U/L (12-78); ALBUMIN 1.4 G/DL (3.4-5.0); ALBUMIN/GLOBULIN RATIO 0.3 (1.1-1.5); ALKALINE PHOSPHATASE 70 IU/L (46-116); ANION GAP 2 (8-16); ASPARTATE AMINO TRANSFERASE 27 U/L (10-37); BILIRUBIN,TOTAL 0.2 MG/DL (0.1-1.0); BLOOD UREA NITROGEN 10 MG/DL (7-18); BUN/CREATININE RATIO 15.6 (5.4-32.0); CALCIUM 8.9 MG/DL (8.5-10.1); CHLORIDE 104 MMOL/L (99-107); CREATININE 0.64 MG/DL (0.60-1.10); GLUCOSE 95 MG/DL (70-104); MAGNESIUM 1.7 MG/DL (1.5-2.4); PHOSPHORUS 3.6 MG/DL (2.3-4.5); POTASSIUM 5.1 MMOL/L (3.5-5.1); SODIUM 139 MMOL/L (135-145); TOTAL CARBON DIOXIDE 33.3 MMOL/L (24-32); TOTAL PROTEIN 6.8 G/DL (6.4-8.2); eGFR > 90 ML/MIN
--- NOTE | 2020-11-20 06:29 | NUR ---
Problems reprioritized. Patient report given, questions answered & plan of care reviewed with NEVILLE RN.
--- NOTE | 2020-11-20 06:36 | NUR ---
Patient in room [facility] 340. I have received report from Neva ESTRADA and had the opportunity to ask questions and assume patient care.
[2020-11-20] MEDS: K and/or MAG REPLACEMENT MC SCH ×2 (08:00→20:00)
[2020-11-20 09:30] VITALS: BP 131/81
[2020-11-20 09:33] VITALS: BP 122/79
[2020-11-20] MEDS: lactobacillus rhamnosus 10,000 MMU CELLS/CAPSULE PO SCH ×2 (10:12→21:10)
[2020-11-20] MEDS: buprenorphine/naloxone 8MG-2MG SUBlingual film SL SCH ×2 (10:12→21:09)
[2020-11-20] MEDS: enoxaparin 40mg/0.4ml syringe SQ SCH ×2 (10:14→21:12)
[2020-11-20] MEDS: enoxaparin 30mg/0.3ml syringe SQ SCH ×2 (10:15→21:12)
[2020-11-20] MEDS: mineral oil/petrolatum, white cream 113gm jar TP SCH ×3 (10:17→23:46)
[2020-11-20] MEDS: acetaminophen 325mg tablet PO PRN ×2 (10:23→21:34)
[2020-11-20 11:00] VITALS: BP 114/71
[2020-11-20] MEDS ORDERED: morphine 2 MG/ML inj. syringe IV ONE (14:40)
--- NOTE | 2020-11-20 15:14 | NUR ---
F/u 11/20: Pt extubated 11/16 advanced to regular diet PO 75-100% avg meals w/ double proteins TID meeting healing needs post-op. LBM 11/18. No nutrition intervention at this time. Will continue to monitor. Recommendations: 1) continue regular diet; Double eggs WB, double meat BIDLD 2) Routine bowel care 3) Scaled weight this admit; weekly scaled weights thereafter Addendum: 11/20/20 at [address] Amended: Links added.
--- NOTE | 2020-11-20 18:26 | NUR ---
Problems reprioritized. Patient report given, questions answered & plan of care reviewed with Anna ESTRADA.
--- NOTE | 2020-11-20 18:58 | NUR ---
Patient in room [facility] 350. I have received report from NATALIE Bridges and had the opportunity to ask questions and assume patient care.
[2020-11-20 19:00] VITALS: BP 110/71
[2020-11-20] MEDS: dextrose 5%-1/2 normal saline 1,000 ML IV SCH (21:13)
[2020-11-21 00:56] VITALS: BP 115/73
[2020-11-21] MEDS: dextrose 5%-1/2 normal saline 1,000 ML IV SCH (04:43)
[2020-11-21] MEDS: vancomycin/NS 1 GM ADD-VANTAGE 250 ML X 1 DOSE IV SCH ×2 (04:44→11:46)
[2020-11-21] MEDS: piperacillin/tazo 3.375gm/50ml 50 ML IV SCH ×2 (04:44→11:46)
--- NOTE | 2020-11-21 06:26 | NUR ---
Problems reprioritized. Patient report given, questions answered & plan of care reviewed with NATALIE Bridges.
--- NOTE | 2020-11-21 06:54 | NUR ---
Patient in room [facility] 349. I have received report from Anna ESTRADA and had the opportunity to ask questions and assume patient care.
[2020-11-21 08:00] VITALS: BP 115/71
[2020-11-21] MEDS: K and/or MAG REPLACEMENT MC SCH (08:00)
[2020-11-21] MEDS: lactobacillus rhamnosus 10,000 MMU CELLS/CAPSULE PO SCH (09:15)
[2020-11-21] MEDS: buprenorphine/naloxone 8MG-2MG SUBlingual film SL SCH (09:15)
[2020-11-21] MEDS: acetaminophen 325mg tablet PO PRN ×2 (09:19→16:35)
[2020-11-21] MEDS: enoxaparin 30mg/0.3ml syringe SQ SCH (09:20)
[2020-11-21] MEDS: enoxaparin 40mg/0.4ml syringe SQ SCH (09:21)
[2020-11-21 10:15] LABS: HEMATOCRIT 29.6 % (42.0-52.0); HEMOGLOBIN 9.8 g/dl (14.0-17.9); MEAN CORPUSCULAR HEMOGLOBIN 26.2 PG (27.0-31.0); MEAN CORPUSCULAR VOLUME 79.4 FL (78-98); MEAN PLATELET VOLUME 5.9 FL (7.4-10.4); PLATELET COUNT 661 X10'3 (140-440); RED BLOOD COUNT 3.73 X10'6 (4.70-6.10); RED CELL DISTRIBUTION WIDTH 16.6 % (11.5-14.5); WHITE BLOOD COUNT 7.1 X10'3 (4.5-11.0)
[2020-11-21 10:31] LABS: ALANINE AMINOTRANSFERASE 29 U/L (12-78); ALBUMIN 1.6 G/DL (3.4-5.0); ALBUMIN/GLOBULIN RATIO 0.3 (1.1-1.5); ALKALINE PHOSPHATASE 87 IU/L (46-116); ANION GAP 4 (8-16); ASPARTATE AMINO TRANSFERASE 22 U/L (10-37); BILIRUBIN,TOTAL 0.2 MG/DL (0.1-1.0); BLOOD UREA NITROGEN 10 MG/DL (7-18); BUN/CREATININE RATIO 15.2 (5.4-32.0); CALCIUM 9.2 MG/DL (8.5-10.1); CHLORIDE 103 MMOL/L (99-107); CREATININE 0.66 MG/DL (0.60-1.10); GLUCOSE 106 MG/DL (70-104); POTASSIUM 4.5 MMOL/L (3.5-5.1); SODIUM 140 MMOL/L (135-145); TOTAL CARBON DIOXIDE 33.1 MMOL/L (24-32); TOTAL PROTEIN 7.7 G/DL (6.4-8.2); eGFR > 90 ML/MIN
[2020-11-21 11:00] VITALS: BP 108/62
[2020-11-21 11:50] LABS: TOTAL CELLS COUNTED 200
[2020-11-21 11:51] LABS: REACTIVE LYMPHOCYTES % 0 % (0-0)
[2020-11-21 11:52] LABS: ANISOCYTOSIS 1+; MICROCYTOSIS 1+; PLATELET ESTIMATE INCREASED; POLYCHROMASIA FEW; STOMATOCYTES FEW
--- NOTE | 2020-11-21 16:40 | NUR ---
Problems reprioritized. Patient report given, questions answered & plan of care reviewed with VIBRA NURSE.
[2020-11-22] MEDS ORDERED: VANCOMYCIN LEVEL IV ONE (03:30)
== END 2020-11-21 16:48 | DRG 710 ==
LOC: ER 07:24 → ED HOLD 13:10 → PCU 3S 17:30 → CICU 2S 11-15 17:53 → SUR 3N 11-17 14:45
PROVIDERS: ADMIT Internal Medicine; ATTEND Internal Medicine
PROC: B32T1ZZ Computerized Tomography (CT Scan) of Left Pulmonary Artery using Low Osmolar Contrast (ICD-10-PCS; 2020-10-26)
PROC: B3201ZZ Computerized Tomography (CT Scan) of Thoracic Aorta using Low Osmolar Contrast (ICD-10-PCS; 2020-10-26)
PROC: B32S1ZZ Computerized Tomography (CT Scan) of Right Pulmonary Artery using Low Osmolar Contrast (ICD-10-PCS; 2020-10-26)
PROC: 02HV33Z Insertion of Infusion Device into Superior Vena Cava, Percutaneous Approach (ICD-10-PCS; 2020-10-28)
PROC: B548ZZA Ultrasonography of Superior Vena Cava, Guidance (ICD-10-PCS; 2020-10-28)
PROC: 0Y9C30Z Drainage of Right Upper Leg with Drainage Device, Percutaneous Approach (ICD-10-PCS; 2020-11-07)
PROC: 0W9930Z Drainage of Right Pleural Cavity with Drainage Device, Percutaneous Approach (ICD-10-PCS; 2020-11-10)
PROC: B32T1ZZ Computerized Tomography (CT Scan) of Left Pulmonary Artery using Low Osmolar Contrast (ICD-10-PCS; 2020-11-10)
PROC: B3201ZZ Computerized Tomography (CT Scan) of Thoracic Aorta using Low Osmolar Contrast (ICD-10-PCS; 2020-11-10)
PROC: B32S1ZZ Computerized Tomography (CT Scan) of Right Pulmonary Artery using Low Osmolar Contrast (ICD-10-PCS; 2020-11-10)
PROC: 0B5N0ZZ Destruction of Right Pleura, Open Approach (ICD-10-PCS; 2020-11-15)
PROC: 0BBF0ZZ Excision of Right Lower Lung Lobe, Open Approach (ICD-10-PCS; 2020-11-15)
PROC: 0BNF0ZZ Release Right Lower Lung Lobe, Open Approach (ICD-10-PCS; 2020-11-15)
PROC: 0BNC0ZZ Release Right Upper Lung Lobe, Open Approach (ICD-10-PCS; 2020-11-15)
PROC: 0BND0ZZ Release Right Middle Lung Lobe, Open Approach (ICD-10-PCS; 2020-11-15)
PROC: 0W9900Z Drainage of Right Pleural Cavity with Drainage Device, Open Approach (ICD-10-PCS; 2020-11-15)
PROC: 30233N1 Transfusion of Nonautologous Red Blood Cells into Peripheral Vein, Percutaneous Approach (ICD-10-PCS; 2020-11-15)
PROC: 0BBC0ZZ Excision of Right Upper Lung Lobe, Open Approach (ICD-10-PCS; principal; 2020-11-15 14:17)
DX: A41.02 Sepsis due to Methicillin resistant Staphylococcus aureus (principal); I26.99 Other pulmonary embolism without acute cor pulmonale; J93.0 Spontaneous tension pneumothorax; E43 Unspecified severe protein-calorie malnutrition; J15.212 Pneumonia due to Methicillin resistant Staphylococcus aureus; J90 Pleural effusion, not elsewhere classified; J96.01 Acute respiratory failure with hypoxia; J96.02 Acute respiratory failure with hypercapnia; M00.052 Staphylococcal arthritis, left hip; E87.1 Hypo-osmolality and hyponatremia; T79.7XXA Traumatic subcutaneous emphysema, initial encounter; J43.9 Emphysema, unspecified; F11.10 Opioid abuse, uncomplicated; I82.492 Acute embolism and thrombosis of other specified deep vein of left lower extremity; M86.8X8 Other osteomyelitis, other site; D63.8 Anemia in other chronic diseases classified elsewhere; G89.4 Chronic pain syndrome; F32.9 Major depressive disorder, single episode, unspecified; M25.552 Pain in left hip; F17.210 Nicotine dependence, cigarettes, uncomplicated; R91.1 Solitary pulmonary nodule; I10 Essential (primary) hypertension; L02.415 Cutaneous abscess of right lower limb; L02.416 Cutaneous abscess of left lower limb; Z20.822 Contact with and (suspected) exposure to COVID-19; M60.9 Myositis, unspecified; Z86.16 Personal history of COVID-19; Z79.899 Other long term (current) drug therapy; Z68.20 Body mass index [BMI] 20.0-20.9, adult; Z71.51 Drug abuse counseling and surveillance of drug abuser; Z79.01 Long term (current) use of anticoagulants
CPT/HCPCS: 10030; 32557; 36415; 36430; 36573; 36600; 71045; 71250; 71275; 73110; 73502; 73701; 73723; 76937; 80053; 80202; 80305; 82803; 82945; 82948; 83540; 83550; 83605; 83735; 83880; 84100; 84157; 85007; 85008; 85018; 85025; 85027; 85610; 85651; 85730; 86140; 86885; 86900; 86901; 86920; 87040; 87070; 87075; 87077; 87081; 87102; 87186; 87635; 89051; 92508; 92616; 93005; 93308; 94002; 94003; 94640; 94760; 96361; 96365; 96367; 96375; 97110; 97116; 97161; 97530; 99152; 99153; 99291; A4215; A4618; A6258; A6449; A7000; A7048; A9575; C1758; C9520; G0378; J0131; J0456; J1170; J1200; J1644; J1650; J1885; J2001; J2250; J2270; J2370; J2405; J2543; J2704; J3010; J3370; J3475; J3480; J3490; J7030; J7040; J7120; P9016; P9045; Q0163; Q9966; Q9967

== ENCOUNTER 2020-12-12 18:12 | Emergency (ER) | payer MEDICAID ==
[~2020-12-12] VITALS: Ht 177.8 cm; Wt 55.5 kg
[2020-12-12 20:24] VITALS: BP 119/63
== END 2020-12-12 20:51 | disposition home or self-care (01) ==
LOC: ER 18:13
DX: M87.88 Other osteonecrosis, other site (principal); M25.552 Pain in left hip; F32.9 Major depressive disorder, single episode, unspecified; F11.90 Opioid use, unspecified, uncomplicated; Z87.01 Personal history of pneumonia (recurrent); Z79.899 Other long term (current) drug therapy
CPT/HCPCS: 99284

== ENCOUNTER → 2020-12-12 | Outpatient (CLI) | payer MEDICAID ==
[~2020-12-12] MED LIST changes: -APIX5TAB3 PO
== END | disposition home or self-care (01) ==
LOC: 64 CT 13:04
PROVIDERS: ATTEND Internal Medicine
DX: M87.852 Other osteonecrosis, left femur (principal)
CPT/HCPCS: 73700

== ENCOUNTER 2021-01-05 09:51 | Outpatient (CLI) | payer MEDICAID | END 2021-01-05 23:59 | disposition home or self-care (01) | LOC: RAD 09:51 | PROVIDERS: ATTEND Internal Medicine | DX: S22.39XD Fracture of one rib, unspecified side, subsequent encounter for fracture with routine healing (principal); X58.XXXD Exposure to other specified factors, subsequent encounter | CPT/HCPCS: 78306; A9503 ==

== ENCOUNTER 2021-04-08 21:02 | Emergency (ER) | payer MEDICAID ==
[~2021-04-08] VITALS: Ht 177.8 cm; Wt 68.0 kg
[2021-04-08 21:52] LABS: BASOPHILS # (AUTO) 0.1 X10'3 (0-0.2); BASOPHILS % (AUTO) 0.6 % (0-1); EOSINOPHILS # (AUTO) 0.4 X10'3 (0-0.9); EOSINOPHILS % (AUTO) 5.2 % (0-6); HEMATOCRIT 35.5 % (42.0-52.0); HEMOGLOBIN 12.3 g/dl (14.0-17.9); LYMPHOCYTES # (AUTO) 2.6 X10'3 (1.1-4.8); LYMPHOCYTES % (AUTO) 32.1 % (21-51); MEAN CORPUSCULAR HEMOGLOBIN 28.6 PG (27.0-31.0); MEAN CORPUSCULAR HGB CONC 34.6 g/dL (33.0-36.5); MEAN CORPUSCULAR VOLUME 82.5 FL (78-98); MONOCYTES # (AUTO) 0.6 X10'3 (0-0.9); MONOCYTES % (AUTO) 7.8 % (2-12); NEUTROPHILS # (AUTO) 4.4 X10'3 (1.8-7.7); NEUTROPHILS % (AUTO) 54.3 % (42-75); PLATELET COUNT 331 X10'3 (140-440); RED CELL DISTRIBUTION WIDTH 14.4 % (11.5-14.5); WHITE BLOOD COUNT 8.1 X10'3 (4.5-11.0)
[2021-04-08 22:04] LABS: ANION GAP 8 (8-16); BLOOD UREA NITROGEN 22 MG/DL (7-18); BUN/CREATININE RATIO 23.2 (5.4-32.0); CHLORIDE 105 MMOL/L (99-107); CREATININE 0.95 MG/DL (0.60-1.10); GLUCOSE 102 MG/DL (70-104); POTASSIUM 3.2 MMOL/L (3.5-5.1); SODIUM 141 MMOL/L (135-145); TOTAL CARBON DIOXIDE 27.8 MMOL/L (24-32)
[2021-04-08 22:05] LABS: ALANINE AMINOTRANSFERASE 59 U/L (12-78); ALBUMIN 3.4 G/DL (3.4-5.0); ALBUMIN/GLOBULIN RATIO 0.7 (1.1-1.5); ALKALINE PHOSPHATASE 84 IU/L (46-116); ASPARTATE AMINO TRANSFERASE 29 U/L (10-37); BILIRUBIN,TOTAL 0.3 MG/DL (0.1-1.0); PARTIAL THROMBOPLASTIN TIME 27 SECONDS (22-32); TOTAL PROTEIN 8.2 G/DL (6.4-8.2); eGFR > 90 ML/MIN
[2021-04-08] MEDS ORDERED: iohexol 350MG/ML 100ml bottle IV ONE (22:20)
[2021-04-09 01:52] VITALS: BP 116/81
[2021-04-09] MEDS ORDERED: oxyCODONE/APAP 10/325mg tablet PO ONE ×2 (02:00→02:25)
== END 2021-04-09 03:07 | disposition home or self-care (01) ==
LOC: ER 21:02 → EEVIPCON 21:02 → ER 04-09 03:07
DX: R06.02 Shortness of breath (principal); G89.29 Other chronic pain; M25.552 Pain in left hip; F15.10 Other stimulant abuse, uncomplicated; F11.10 Opioid abuse, uncomplicated
CPT/HCPCS: 36415; 71045; 71275; 80053; 83880; 84145; 85025; 85379; 85610; 85730; 99285; Q9967; 93005

== ENCOUNTER 2021-11-01 17:25 | Emergency (ER) | payer MEDICAID ==
[~2021-11-01] VITALS: Ht 177.8 cm; Wt 72.7 kg
[2021-11-01] MEDS ORDERED: orphenadrine citrate 60mg/2ml inj. IM ONE (20:25)
[2021-11-01] MEDS ORDERED: ketorolac trometh. 30mg/ml inj. IM ONE (20:25)
[2021-11-01] MEDS ORDERED: CYCL-1 PO (20:56)
[2021-11-01] MEDS ORDERED: HYDROcodone/acetaminophen 10/325mg tab PO ONE (21:35)
[2021-11-01 21:52] VITALS: BP 138/87
== END 2021-11-08 08:52 | disposition home or self-care (01) ==
LOC: ER 11-02 02:26
DX: M25.552 Pain in left hip (principal); F15.10 Other stimulant abuse, uncomplicated; F32.A Depression, unspecified; F11.10 Opioid abuse, uncomplicated; Z87.81 Personal history of (healed) traumatic fracture; W19.XXXA Unspecified fall, initial encounter; Y93.89 Activity, other specified; Y92.89 Other specified places as the place of occurrence of the external cause; Y99.8 Other external cause status
CPT/HCPCS: 73502; 96372; 99284; J1885; J2360; 99283